=== PATIENT | male | born 1950 | race Caucasian/White ===

== ENCOUNTER 2017-04-05 21:10 | Emergency (ER) | payer SELFPAY ==
[2017-04-05] MEDS ORDERED: ACETAMINOPHEN 500 MG TAB PO ONE ×2 (21:12)
[2017-04-05 21:21] VITALS: BP 150/86
== END 2017-04-05 21:23 | disposition left against medical advice (07) ==
LOC: EDBD 21:10 → EDUNIT# 21:10 → ER 21:18
DX: R07.9 Chest pain, unspecified (principal); R50.9 Fever, unspecified; Z53.21 Procedure and treatment not carried out due to patient leaving prior to being seen by health care provider

== ENCOUNTER 2020-04-08 18:50 | Inpatient (IN) | payer MEDICAID ==
[~2020-04-08] VITALS: Ht 195.6 cm; Wt 51.9 kg
[2020-04-08] MEDS ORDERED: SODIUM CHLORIDE 0.9% 1,750 ML IV ONE ×2 (20:00→20:15)
[2020-04-08] MEDS ORDERED: VANCOMYCIN PER PHARMACY 1,000 MG IV SCH (20:00)
[2020-04-08] MEDS ORDERED: VANCOMYCIN 1GM/250ML 250 ML IV ONE (20:30)
[2020-04-08 21:14] LABS: Basophils # (auto) 0.2 10 ^3/uL (0-0.2); Basophils % (auto) 1.3 % (0.0-2.0); Eosinophils # (auto) 0.1 10 ^3/uL (0-0.8); Hematocrit 34.8 % (41.0-53.0); Hemoglobin 11.4 g/dL (13.5-17.5); Lymphocytes # (auto) 1.1 10 ^3/uL (0.4-5.4); Lymphocytes % (auto) 9.4 % (10.0-50.0); Mean Corpuscular Hemoglobin 31.8 pg (28.0-32.0); Mean Corpuscular Hgb Conc. 32.9 g/dL (32.0-36.0); Mean Corpuscular Volume 96.5 fL (80.0-100.0); Monocytes # (auto) 1.1 10 ^3/uL (0-1.3); Monocytes % (auto) 9.2 % (0.0-12.0); Neutrophils # (auto) 9.1 10 ^3/uL (1.6-8.6); Neutrophils % (auto) 79.1 % (37.0-80.0); Platelet Count (auto) 362 10^3/uL (140-450); Red Cell Distribution Width 14.3 % (11.8-14.3); White Blood Cell 11.5 10^3/uL (4.4-10.8)
[2020-04-08 21:29] LABS: INR 1.07 (0.9-1.15); Partial Thromboplastin Time 31.3 sec (23.64-32.05)
[2020-04-08 21:31] LABS: Albumin 2.6 g/dL (3.4-5.0); Anion Gap 7 (5-15); Blood Urea Nitrogen 41 mg/dL (7-18); Calcium 8.5 mg/dL (8.5-10.1); Carbon Dioxide 24 mmol/L (21-32); Chloride 107 mmol/L (98-107); Glucose 103 mg/dL (74-106); Potassium 4.7 mmol/L (3.5-5.1); Sodium 138 mmol/L (136-145)
[2020-04-08 21:33] LABS: Alanine Aminotransferase 22 U/L (16-61); Aspartate Aminotransferase 8 U/L (15-37); BUN/Creatinine Ratio 24.1; GFR African American 53 mL/min; GFR Non-African American 44 mL/min
[2020-04-08 21:49] LABS: Alkaline Phosphatase 72 U/L (45-117); Bilirubin, Total 0.6 mg/dL (0.2-1.0); Total Protein 7.1 g/dL (6.4-8.2)
[2020-04-08] MEDS ORDERED: MORPHINE SULF INJ 2 MG/ML SYRINGE 1ML IV ONE (22:00)
[2020-04-08] MEDS ORDERED: ONDANSETRON HCL 4 MG/2 ML VIAL IV ONE (22:00)
[2020-04-09] MEDS: PIPERACILLIN-TAZOB 3.375GM 100 ML IV SCH ×2 (00:05→06:00)
[2020-04-09 02:33] LABS: Urine Bacteria FEW /hpf (None Seen); Urine Blood Negative /uL (Negative); Urine Hyaline Cast MANY /lpf (0 - 2); Urine Specific Gravity 1.014 (1.001-1.035); Urine WBC 2 /hpf (0 - 3)
[2020-04-09] MEDS ORDERED: ALBUMIN 5% 250 ML IV ONE (02:45)
[2020-04-09] MEDS ORDERED: ONDANSETRON HCL 4 MG/2 ML VIAL IV PRN (02:45)
[2020-04-09] MEDS ORDERED: NITROGLYCERIN 0.4 MG SL TAB SL PRN (02:45)
[2020-04-09] MEDS ORDERED: ACETAMINOPHEN 325 MG TAB PO PRN (02:45)
[2020-04-09 02:47] LABS: Alcohol, Urine < 3.0 mg/dL (0-10); Amphetamine Screen, Urine NEGATIVE (NEGATIVE); Barbiturate Scree,Urine NEGATIVE (NEGATIVE); Benzodiazephine Screen, Urine NEGATIVE (NEGATIVE); Cannabinoid Screen, Urine NEGATIVE (NEGATIVE); Cocaine Screen, Urine NEGATIVE (NEGATIVE); Opiate Scree,Urine NEGATIVE (NEGATIVE); Phencyclidine Screen, Urine NEGATIVE (NEGATIVE)
[2020-04-09] MEDS: SODIUM CHLORIDE 0.9% 1,000 ML IV SCH ×2 (04:07→16:05)
[2020-04-09] MEDS ORDERED: CLINDAMYCIN 600MG IV 50 ML IV SCH (06:00)
[2020-04-09 06:11] LABS: Basophils # (auto) 0 10 ^3/uL (0-0.2); Basophils % (auto) 0.4 % (0.0-2.0); Eosinophils # (auto) 0.1 10 ^3/uL (0-0.8); Eosinophils % (auto) 1.2 % (0.0-7.0); Hematocrit 28.4 % (41.0-53.0); Hemoglobin 9.5 g/dL (13.5-17.5); Lymphocytes # (auto) 1.5 10 ^3/uL (0.4-5.4); Mean Corpuscular Hemoglobin 32.4 pg (28.0-32.0); Mean Corpuscular Hgb Conc. 33.3 g/dL (32.0-36.0); Mean Corpuscular Volume 97.2 fL (80.0-100.0); Monocytes # (auto) 0.8 10 ^3/uL (0-1.3); Monocytes % (auto) 8.2 % (0.0-12.0); Neutrophils # (auto) 6.8 10 ^3/uL (1.6-8.6); Neutrophils % (auto) 74.2 % (37.0-80.0); Platelet Count (auto) 316 10^3/uL (140-450); Red Blood Cells 2.93 10^6/uL (4.5-5.90); Red Cell Distribution Width 14.1 % (11.8-14.3); White Blood Cell 9.2 10^3/uL (4.4-10.8)
[2020-04-09 06:29] LABS: Potassium 4.4 mmol/L (3.5-5.1)
[2020-04-09 06:34] LABS: BUN/Creatinine Ratio 31.9
[2020-04-09] MEDS ORDERED: ALBUMIN 5% 50 ML IV ONE (07:15)
[2020-04-09] MEDS: cefTRIAXone 1GM/50ML D5W 50 ML IV SCH (08:14)
[2020-04-09] MEDS ORDERED: LISINOPRIL 10 MG TAB PO SCH (10:00)
[2020-04-09] MEDS: ASPirin 81 mg TAB PO SCH (10:07)
[2020-04-09] MEDS: PANTOPRAZOLE 40 MG TAB PO SCH (10:07)
--- NOTE | 2020-04-09 10:30 | NUR ---
WOUND CARE NOTE: IN TO SEE PATIENT AT THIS TIME PER WOUND CARE CONSULT REQUEST. PATIENT ADMITTED TO [facility] WITH DIAGNOSIS OF MULTIPLE NON HEALING WOUNDS. PATIENT HAS CURRENT LUARYN SCORE OF 15. PATIENT IS RESTING ON GURNEY. CAN SELF TURN/REPOSITION SELF. WOUND PHOTOS TAKEN IN ER BY BEDSIDE NURSE FOR REFERENCE. PATIENT IS ADMITTED IN ER BED 5. AWAITING AVAILABLE BED IN M/S TELE. PATIENT HAS MULTIPLE LOCALIZED SKIN INFECTIONS NOTED TO LEFT MEDIAL KNEE, LEFT ANKLE, RIGHT FOREARM, HAND, ABDOMEN/GROIN/UPPER BILATERAL THIGHS. PATIENT STATES THAT HE STARTED NOTICING WOUNDS OCCUR AND WORSEN OVER THE LAST TWO WEEKS. GROIN/BILATERAL UPPER MEDIAL THIGHS ARE VERY TENDER TO THE TOUCH, AND PATIENT IS REFUSING ANY WOUND CARE TO THIS AREA, D/T PAIN. WOUNDS ARE LOCALIZED, CRUSTED IN THIS AREA. HE HAS SCABBED/CRUSTED ULCERATIONS/BLISTERS TO THE OTHER AREAS LISTED ABOVE. ALL WOUND STATS CAN BE FOUND WITHIN WOUND ASSESSMENT, LINKED TO THIS NOTE.OBTAINED WOUND CULTURE TO LEFT KNEE WOUND, SENT OFF TO LAB FOR PROCESSING. CULTURE WAS TAKEN UTILIZING KIRAN TECHNIQUE. CLEANSED ALL WOUNDS WITH WOUND CLEANSER, PATTED DRY WITH STERILE GAUZE. APPLIED THERAHONEY TO ALL WOUNDS. COVERED WITH OPTIFOAM GENTLE DRESSING TO ALL OPEN AND/OR DRAINING WOUNDS. EDUCATED PATIENT IN WOUND CARE AT THIS TIME, PATIENT VERBALIZED UNDERSTANDING, CONTINUES TO REFUSE WOUND CARE TO GROIN AREAS. RECOMMEND: EOD/PRN DRESSING CHANGE TO OPEN/DRAINING WOUNDS, SKIN/WOUND CARE PLAN, FREQUENT TURN SCHEDULE Q 2 HOURS, PRN CONDITION PERMITS, WITH PRESSURE REDISTRIBUTION USING PILLOWS/WEDGES, DIETARY CONSULT, CONTINUED MONITORING BY WOUND CARE TEAM. Addendum: 04/09/20 at 1632 by Calista Levy RN Amended: Links added.
[2020-04-09] MEDS: MORPHINE SULF INJ 2 MG/ML SYRINGE 1ML IV PRN ×2 (11:30→21:25)
[2020-04-09] MEDS ORDERED: VANCOMYCIN PER PHARMACY 0 MG IV SCH (11:45)
[2020-04-09] MEDS: VANCOMYCIN 1GM/250ML 250 ML IV SCH (12:50)
[2020-04-09] MEDS: levETIRAcetam 500 MG TAB PO SCH ×2 (14:21→21:26)
[2020-04-09] MEDS: GABAPENTIN 300 MG CAP PO SCH ×2 (14:21→21:26)
[2020-04-09 17:58] VITALS: BP 114/71
--- NOTE | 2020-04-09 19:15 | NUR ---
Patient alert and oriented x 4, patient resps even and unlabored, no complaints care endorsed to night nurse.
[2020-04-09] MEDS: TEMAZEPAM 15 MG CAP PO PRN (21:25)
[2020-04-09 22:18] VITALS: BP 98/59
[2020-04-10] MEDS: VANCOMYCIN 1GM/250ML 250 ML IV SCH ×2 (00:38→13:46)
[2020-04-10 05:08] VITALS: BP 97/56
[2020-04-10] MEDS: GABAPENTIN 300 MG CAP PO SCH ×3 (05:47→21:36)
[2020-04-10] MEDS: levETIRAcetam 500 MG TAB PO SCH ×3 (05:47→21:36)
[2020-04-10] MEDS: SODIUM CHLORIDE 0.9% 1,000 ML IV SCH (05:48)
[2020-04-10 06:47] LABS: BUN/Creatinine Ratio 21.3; Calcium 8.3 mg/dL (8.5-10.1); Potassium 4.7 mmol/L (3.5-5.1)
[2020-04-10 06:52] LABS: Basophils # (auto) 0.1 10 ^3/uL (0-0.2); Basophils % (auto) 0.8 % (0.0-2.0); Eosinophils # (auto) 0.1 10 ^3/uL (0-0.8); Hematocrit 29.3 % (41.0-53.0); Lymphocytes # (auto) 1.4 10 ^3/uL (0.4-5.4); Lymphocytes % (auto) 20.3 % (10.0-50.0); Mean Corpuscular Hemoglobin 32.9 pg (28.0-32.0); Mean Corpuscular Volume 96.9 fL (80.0-100.0); Monocytes # (auto) 0.5 10 ^3/uL (0-1.3); Monocytes % (auto) 6.7 % (0.0-12.0); Neutrophils # (auto) 4.9 10 ^3/uL (1.6-8.6); Neutrophils % (auto) 71.2 % (37.0-80.0); Platelet Count (auto) 344 10^3/uL (140-450); Red Blood Cells 3.03 10^6/uL (4.5-5.90); White Blood Cell 6.9 10^3/uL (4.4-10.8)
[2020-04-10 08:55] VITALS: BP 98/50
[2020-04-10] MEDS: cefTRIAXone 1GM/50ML D5W 50 ML IV SCH (09:09)
[2020-04-10] MEDS: ASPirin 81 mg TAB PO SCH (09:09)
[2020-04-10] MEDS: PANTOPRAZOLE 40 MG TAB PO SCH (09:10)
[2020-04-10] MEDS: ENOXAPARIN SOD 40 MG/0.4 ML SYRINGE SC SCH (09:10)
[2020-04-10] MEDS: Ensure Enlive Strawberry 8oz Bottle PO SCH ×2 (11:38→17:53)
[2020-04-10] MEDS: HYDROcodone-ACET 5/325MG TAB PO PRN ×2 (11:40→21:39)
[2020-04-10 12:35] VITALS: BP 105/61
[2020-04-10 16:52] VITALS: BP 93/53
[2020-04-10] MEDS: MORPHINE SULF INJ 2 MG/ML SYRINGE 1ML IV PRN (20:02)
--- NOTE | 2020-04-10 20:39 | NUR ---
1999. PATIENT SEEN. COMPLAINING OF PAIN LEFT KNEE, GROINS AND IV SITES. ALL TWO IV DISCONTINUED AND A FRESH ONE INSERTED TO LEFT FORE ARM GAUGE 20. MORPHINE 2MG GIVEN IV. IVF STARTED AT 75ML/HOUR. WOUNDS BOTH GROINS CLEANED AND LEFT OPEN TO AIR WOUND RGHT HAND CLEANED AND LEFT OPEN TO AIR. ALL BED LINENS CHANGED. PATIENT MORE COMFORTABLE AT THE END.
[2020-04-10] MEDS: BISACODYL 5 MG EC TAB PO SCH (21:36)
[2020-04-10] MEDS: TEMAZEPAM 15 MG CAP PO PRN (21:39)
[2020-04-10 22:21] VITALS: BP 96/50
[2020-04-11] MEDS: VANCOMYCIN 1GM/250ML 250 ML IV SCH ×2 (01:04→13:16)
--- NOTE | 2020-04-11 05:15 | NUR ---
PATIENT SLEPT WELL DURING THE NIGHT. HE HAS NO COMPLAINTS NOW.
[2020-04-11 05:31] VITALS: BP 108/63
[2020-04-11] MEDS: GABAPENTIN 300 MG CAP PO SCH ×3 (05:49→22:00)
[2020-04-11] MEDS: levETIRAcetam 500 MG TAB PO SCH ×3 (05:50→22:00)
[2020-04-11 08:00] VITALS: BP 113/59
--- NOTE | 2020-04-11 08:00 | NUR ---
ASSESSMENT NOTE PT IS ALERT ORIENTED X4, RESTING IN BED COMFORTABLY, LARGE SOFT ABDOMEN NOTED,PT HAS DRY LARGE MULTIPLE SCABS AT THE GENITALIA AREA, THIRD FINGER RT HAND IN THE SKIN FOLDS, RT FORE ARM, LEFT KNEE IS COVERED WITH DRY CLEAN DRESSING, PT SCABS ARE VERY TENDER TO TOUCH, BODY ACHES NOTED, EXPLAIN PT THE PLAN OF CARE THAT HE NEED TO GET OUT OF BED WITH THE PHYSICAL THERAPY, CALL LIGHT WITHIN REACH, CONTINUE ON FALL RISK PRECAUTIONS
[2020-04-11 09:00] VITALS: BP 120/67
[2020-04-11] MEDS: cefTRIAXone 1GM/50ML D5W 50 ML IV SCH (09:10)
[2020-04-11] MEDS: Ensure Enlive Strawberry 8oz Bottle PO SCH ×3 (09:10→18:00)
[2020-04-11] MEDS: ASPirin 81 mg TAB PO SCH (09:11)
[2020-04-11] MEDS: ENOXAPARIN SOD 40 MG/0.4 ML SYRINGE SC SCH (09:12)
[2020-04-11] MEDS: PANTOPRAZOLE 40 MG TAB PO SCH (09:12)
[2020-04-11] MEDS: MORPHINE SULF INJ 2 MG/ML SYRINGE 1ML IV PRN ×2 (09:24→20:09)
--- NOTE | 2020-04-11 10:00 | NUR ---
DRESSING CHANGE ALREADY DONE WITH TIANA ARRIAZA ORDER PACKER OR PACKAGER Addendum: 04/11/20 at 1005 by Odalis Putnam RN Amended: Links added.
--- NOTE | 2020-04-11 11:15 | NUR ---
DR LIND AT BED SIDE FOLLOWING UP ON PT, PT LUNGS ARE CLEAR, ROOM AIR, CONTINUE MONITORING
[2020-04-11 13:00] VITALS: BP 96/67
[2020-04-11 17:00] VITALS: BP 108/64
--- NOTE | 2020-04-11 17:30 | NUR ---
PHYSICAL THERAPY ASSISTING PT TO GET OUT OF BED TO AMBULATE IN THE HALLWAYS, PT TOLERATED WELL, NO DISTRESS NOTED
--- NOTE | 2020-04-11 18:50 | NUR ---
PT CONTINUE STABLE, CONTINUE MONITORING
--- NOTE | 2020-04-11 19:25 | NUR ---
Opening Shift Note Assumed care of patient, awake and alert x4. No S/S of distress/SOB, or pain. Seizure precautions are in place. His cane from home is at the bedside and within reach. Call light is within reach, side rails up x2, bed is in the lowest position. Instructed on POC and to call for assist PRN, will continue to monitor for changes Q1hr and PRN.
[2020-04-11] MEDS: TEMAZEPAM 15 MG CAP PO PRN (22:00)
[2020-04-11] MEDS: BISACODYL 5 MG EC TAB PO SCH (22:00)
--- NOTE | 2020-04-11 23:10 | NUR ---
IV insertion to RFA IV access obtained, via clean sterile technique by inserting 22 gauge catheter at RFA after 1 attempt(s). IV secured properly. No trauma to site. Patient tolerated well. IV removal from left wrist IV DC'd with clean sterile technique, catheter fully intact. Pressure dressing applied to site. Patient tolerated well.
[2020-04-11 23:23] VITALS: BP 96/60
[2020-04-12] VITALS (7 sets, daily range): BP systolic 100–114; BP diastolic 59–69
--- NOTE | 2020-04-12 00:05 | NUR ---
Dressing change to left knee, patient tolerated well with no complaints of pain.
[2020-04-12] MEDS: VANCOMYCIN 1GM/250ML 250 ML IV SCH (01:13)
[2020-04-12] MEDS: levETIRAcetam 500 MG TAB PO SCH ×3 (05:42→22:46)
[2020-04-12] MEDS: GABAPENTIN 300 MG CAP PO SCH ×3 (05:42→22:46)
[2020-04-12] MEDS: Ensure Enlive Strawberry 8oz Bottle PO SCH ×3 (08:00→19:00)
--- NOTE | 2020-04-12 09:00 | NUR ---
LOOSE BM PT STATED I WENT THE BATHROOM 6 TIMES, I AM HAVING DIARRHEA, I NEED MEDICATIONS, SUPPORT PT, KEPT CLEAN AND DRY
--- NOTE | 2020-04-12 09:20 | NUR ---
DR LIND MADE AWARE OF PT LOOSE BM, PT HAVE NO BM SINCE 04/08/20, ON STOOL SOFTENER EVERY NIGHT, PT MADE AWARE ASSURE PT THAT THE MEDS SOON WILL GET OUT OF HIS SYSTEM AND WILL BE FINE
[2020-04-12] MEDS: ENOXAPARIN SOD 40 MG/0.4 ML SYRINGE SC SCH (09:35)
[2020-04-12] MEDS: PANTOPRAZOLE 40 MG TAB PO SCH (09:35)
[2020-04-12] MEDS: ASPirin 81 mg TAB PO SCH (09:35)
[2020-04-12] MEDS: cefTRIAXone 1GM/50ML D5W 50 ML IV SCH (09:35)
--- NOTE | 2020-04-12 10:27 | NUR ---
Attempted PT treatment. Pt wants to hold until afternoon due to diarrhea. Will attempt again later.
[2020-04-12] MEDS ORDERED: DOXYCYCLINE 100MG/250ML 250 ML IV SCH (10:45)
[2020-04-12] MEDS: DOXYCYCLINE 100 MG TAB/CAP PO SCH ×2 (11:01→22:46)
--- NOTE | 2020-04-12 13:50 | NUR ---
BM PT HAS BM, START TO GET FORMED, TOLERATED DIET WELL
--- NOTE | 2020-04-12 15:37 | NUR ---
Nutrition Assessment Notes please see attached link for complete assessment Est energy needs BW 99 [id number] kcal (25-30kcal/kg IBW) Est protein needs: 99-128g (1.0-1.3g/kg BW r/t wounds) Will reassess prn. Addendum: 04/12/20 at [address] Amended: Links added.
[2020-04-12] MEDS: HYDROcodone-ACET 5/325MG TAB PO PRN (17:08)
--- NOTE | 2020-04-12 18:14 | NUR ---
PT CONTINUE STABLE, CONTINUE MONITORING
--- NOTE | 2020-04-12 19:38 | NUR ---
OPENING SHIFT NOTE: ASSUMED CARE OF PATIENT. PATIENT IS AWAKE, ALERT AND ORIENTED X 4, NO S/S OF SOB OR DISTRESS. PATIENT COMPLAINS OF PAIN 8/10, WILL MEDICATE FOR PAIN. BED IS IN LOWEST LOCKED POSITION WITH TWO SIDE RAILS RAISED AND CALL DUMONT WITHIN REACH. INSTRUCTED ON POC AND ENCOURAGED TO USE CALL DUMONT FOR ASSISTANCE, ALL QUESTIONS AND CONCERNS ADDRESSED, PATIENT VERBALIZES UNDERSTANDING. WILL CONTINUE TO MONITOR Q1 HR AND PRN.
[2020-04-12] MEDS: MORPHINE SULF INJ 2 MG/ML SYRINGE 1ML IV PRN (20:23)
[2020-04-12] MEDS: TEMAZEPAM 15 MG CAP PO PRN (22:47)
[2020-04-13 05:00] VITALS: BP 120/67
[2020-04-13] MEDS: levETIRAcetam 500 MG TAB PO SCH (05:30)
[2020-04-13] MEDS: GABAPENTIN 300 MG CAP PO SCH (05:30)
[2020-04-13] MEDS: MORPHINE SULF INJ 2 MG/ML SYRINGE 1ML IV PRN ×2 (05:35→09:55)
--- NOTE | 2020-04-13 07:30 | NUR ---
RECEIVED REPORT FROM NIGHT NURSE. PATIENT RESTING IN BED, NO DISTRESS NOTED. WILL CONTINUE TO MONITOR.
[2020-04-13] MEDS: Ensure Enlive Strawberry 8oz Bottle PO SCH (08:00)
[2020-04-13] MEDS: PANTOPRAZOLE 40 MG TAB PO SCH (09:55)
[2020-04-13] MEDS: DOXYCYCLINE 100 MG TAB/CAP PO SCH (09:55)
[2020-04-13] MEDS: ASPirin 81 mg TAB PO SCH (09:55)
[2020-04-13] MEDS: ENOXAPARIN SOD 40 MG/0.4 ML SYRINGE SC SCH (09:58)
[2020-04-13] MEDS ORDERED: DOX100T PO (10:18)
--- NOTE | 2020-04-13 12:17 | NUR ---
WOUND PHOTOS TAKEN.
--- NOTE | 2020-04-13 12:37 | NUR ---
WOUND CARE SUPPLIES GIVEN TO PATIENT.
[2020-04-13 13:23] VITALS: BP 124/73
[2020-04-13 13:24] VITALS: BP 114/46
--- NOTE | 2020-04-13 14:50 | NUR ---
Discharge instructions given as ordered. Encourage to follow up with PMD as instructed. All questions and concerns addressed. Patient verbalized understanding. Medication reconciliation form completed and copy given to patient. IV removed with catheter intact, pressure dressing applied. Patient taken to [facility] via wheelchair with all personal belongings, accompanied by staff member. No distress noted at time of departure.
== END 2020-04-13 14:51 | disposition home or self-care (01) | DRG 384 ==
LOC: ER 19:01 → EDBD 19:01 → TELE 19:02 → TELE-CENTR 04-09 17:41 → CENTRAL 04-10 10:45
PROVIDERS: ADMIT Nurse Practitioner; ATTEND Internal Medicine
DX: S31.153A Open bite of abdominal wall, right lower quadrant without penetration into peritoneal cavity, initial encounter (principal); N17.0 Acute kidney failure with tubular necrosis; E43 Unspecified severe protein-calorie malnutrition; I95.9 Hypotension, unspecified; E86.0 Dehydration; D64.9 Anemia, unspecified; B95.61 Methicillin susceptible Staphylococcus aureus infection as the cause of diseases classified elsewhere; D72.829 Elevated white blood cell count, unspecified; K57.30 Diverticulosis of large intestine without perforation or abscess without bleeding; G40.909 Epilepsy, unspecified, not intractable, without status epilepticus; B95.2 Enterococcus as the cause of diseases classified elsewhere; I10 Essential (primary) hypertension; I25.2 Old myocardial infarction; K59.00 Constipation, unspecified; W57.XXXA Bitten or stung by nonvenomous insect and other nonvenomous arthropods, initial encounter; Y93.89 Activity, other specified; Y92.89 Other specified places as the place of occurrence of the external cause; Y99.8 Other external cause status
CPT/HCPCS: 36415; 36600; 71045; 74176; 80048; 80053; 80202; 80307; 81001; 82550; 82805; 83605; 83880; 84484; 85025; 85379; 85384; 85610; 85730; 86850; 86900; 86901; 87040; 87077; 87086; 87186; 87205; 93005; 93970; 97163; 97530; 99291; G0378; J0696; J2405; J2543; J3490

== ENCOUNTER 2021-12-25 17:40 | Inpatient (IN) | payer MEDICAID ==
[~2021-12-25] VITALS: Ht 182.9 cm; Wt 94.2 kg
[~2021-12-25 17:40] MED LIST: DOX100T PO
[2021-12-25] MEDS ORDERED: SODIUM CHLORIDE 0.9% 500 ML IV ONE ×2 (18:15→21:45)
[2021-12-25] MEDS ORDERED: DexAMETHasone SOD PHOS 10MG/1ML VIAL INJ IV ONE (18:15)
[2021-12-25] MEDS ORDERED: ALBUTEROL SULF 2.5 MG/0.5ML(0.5%) NEB SOLN NEB ONE (18:15)
[2021-12-25] MEDS ORDERED: HYDROmorphone HCL 2 MG/ML VL IV ONE (18:15)
[2021-12-25] MEDS ORDERED: IPRATROPIUM BROM 0.5 MG/2.5ML INH SOL NEB ONE (18:15)
[2021-12-25] MEDS ORDERED: ASPirin 325 MG TAB PO ONE (18:45)
[2021-12-25] MEDS ORDERED: MORPHINE SULFATE INJECTION 2 MG/ML SYRG IV ONE (19:00)
[2021-12-25 19:27] LABS: Basophils # (auto) 0.1 10 ^3/uL (0-0.2); Basophils % (auto) 1.4 % (0.0-2.0); Eosinophils # (auto) 0 10 ^3/uL (0-0.8); Eosinophils % (auto) 0.3 % (0.0-7.0); Hematocrit 38.4 % (41.0-53.0); Hemoglobin 13.3 g/dL (13.5-17.5); Lymphocytes # (auto) 1.8 10 ^3/uL (0.4-5.4); Lymphocytes % (auto) 34.6 % (10.0-50.0); Mean Corpuscular Hemoglobin 32.8 pg (28.0-32.0); Mean Corpuscular Hgb Conc. 34.7 g/dL (32.0-36.0); Mean Corpuscular Volume 94.5 fL (80.0-100.0); Monocytes # (auto) 0.5 10 ^3/uL (0-1.3); Monocytes % (auto) 10.5 % (0.0-12.0); Neutrophils # (auto) 2.8 10 ^3/uL (1.6-8.6); Neutrophils % (auto) 53.2 % (37.0-80.0); Nucleated Red Blood Cells % 0.2 %; Red Blood Cells 4.07 10^6/uL (4.5-5.90); Red Cell Distribution Width 13.4 % (11.8-14.3); White Blood Cell 5.3 10^3/uL (4.4-10.8)
[2021-12-25 20:54] LABS: Albumin 3.2 g/dL (3.4-5.0); Calcium 8.5 mg/dL (8.5-10.1); Magnesium 2.2 mg/dL (1.6-2.6); Potassium 4.1 mmol/L (3.5-5.1)
[2021-12-25 21:00] LABS: Bilirubin, Total 0.5 mg/dL (0.2-1.0); Total Protein 6.8 g/dL (6.4-8.2)
[2021-12-25] MEDS ORDERED: SODIUM CHLORIDE 0.9% 1,000 ML IV ONE (22:45)
[2021-12-26] VITALS (7 sets, daily range): BP systolic 89–123; BP diastolic 39–75
[2021-12-26] MEDS ORDERED: IPRATROPIUM BROM 0.5 MG/2.5ML INH SOL NEB PRN (01:00)
[2021-12-26] MEDS ORDERED: ONDANSETRON HCL 4 MG/2 ML VIAL IV PRN (01:00)
[2021-12-26] MEDS ORDERED: DOCUSATE SOD 100 MG CAP PO PRN (01:00)
[2021-12-26] MEDS ORDERED: ALBUTEROL SULF 2.5 MG/0.5ML(0.5%) NEB SOLN NEB PRN (01:00)
[2021-12-26] MEDS ORDERED: ACETAMINOPHEN 325 MG TAB PO PRN (01:00)
[2021-12-26] MEDS ORDERED: AZITHROMYCIN 250 MG TAB PO ONE (01:00)
[2021-12-26] MEDS ORDERED: NITROGLYCERIN 0.4 MG SL TAB SL PRN (01:00)
[2021-12-26] MEDS ORDERED: MORPHINE SULFATE INJECTION 2 MG/ML SYRG IV PRN (01:00)
[2021-12-26] MEDS ORDERED: HEPARIN SODIUM (PORCINE) 5000 UNITS/ML 1ML VIAL IV ONE (01:15)
[2021-12-26] MEDS: MAGNESIUM SULFATE 1GM/100ML 100 ML IV SCH ×2 (01:42→01:44)
[2021-12-26 02:03] LABS: Urine Bacteria FEW /hpf (None Seen); Urine Blood Negative /uL (Negative); Urine Hyaline Cast FEW /lpf (0 - 2); Urine Specific Gravity 1.015 (1.001-1.035); Urine WBC 2 /hpf (0 - 3)
[2021-12-26] MEDS: SODIUM CHLORIDE 0.9% 1,000 ML IV SCH ×2 (02:13→10:24)
[2021-12-26] MEDS ORDERED: PRAV20TA3 PO (03:02)
[2021-12-26] MEDS ORDERED: GABA300C10 PO (03:02)
[2021-12-26] MEDS ORDERED: ALBU1AER4 IN (03:02)
[2021-12-26] MEDS ORDERED: LISI-716 PO (03:02)
[2021-12-26] MEDS ORDERED: LEVE500T32 PO (03:02)
[2021-12-26] MEDS: HEPARIN SODIUM (PORCINE) 5000 UNITS/ML 1ML VIAL SC SCH ×3 (06:00→22:00)
[2021-12-26] MEDS: levETIRAcetam 500 MG TAB PO SCH ×3 (06:00→22:00)
[2021-12-26] MEDS: methylPREDNISolone SOD SUCC 125 MG/2 ML VL IV SCH ×3 (06:00→18:01)
[2021-12-26] MEDS: GABAPENTIN 300 MG CAP PO SCH ×3 (06:00→22:00)
[2021-12-26] MEDS: IPRATROPIUM BROM 0.5 MG/2.5ML INH SOL NEB SCH ×4 (06:31→23:53)
[2021-12-26] MEDS: ALBUTEROL SULF 2.5 MG/0.5ML(0.5%) NEB SOLN NEB SCH ×4 (06:31→23:53)
[2021-12-26] MEDS ORDERED: NICOTINE 21MG/24 HR TOPICAL PATCH TD SCH (10:00)
[2021-12-26] MEDS: PRAVASTATIN SODIUM 20 MG TAB PO SCH (10:21)
[2021-12-26] MEDS: PANTOPRAZOLE 40 MG TAB PO SCH (10:21)
[2021-12-26] MEDS: AZITHROMYCIN 250 MG TAB PO SCH (10:22)
[2021-12-26 12:49] LABS: Basophils # (auto) 0 10 ^3/uL (0-0.2); Basophils % (auto) 0.2 % (0.0-2.0); Eosinophils # (auto) 0 10 ^3/uL (0-0.8); Hematocrit 35.7 % (41.0-53.0); Hemoglobin 12.3 g/dL (13.5-17.5); Lymphocytes # (auto) 0.6 10 ^3/uL (0.4-5.4); Lymphocytes % (auto) 20.8 % (10.0-50.0); Mean Corpuscular Hemoglobin 32.8 pg (28.0-32.0); Mean Corpuscular Hgb Conc. 34.5 g/dL (32.0-36.0); Mean Corpuscular Volume 94.9 fL (80.0-100.0); Monocytes # (auto) 0.1 10 ^3/uL (0-1.3); Monocytes % (auto) 4.3 % (0.0-12.0); Neutrophils # (auto) 2.1 10 ^3/uL (1.6-8.6); Neutrophils % (auto) 74.7 % (37.0-80.0); Nucleated Red Blood Cells % 0.3 %; Red Blood Cells 3.76 10^6/uL (4.5-5.90); Red Cell Distribution Width 13.5 % (11.8-14.3); White Blood Cell 2.8 10^3/uL (4.4-10.8)
[2021-12-26 13:24] LABS: Albumin 2.9 g/dL (3.4-5.0); Calcium 8.3 mg/dL (8.5-10.1); Potassium 4.2 mmol/L (3.5-5.1)
[2021-12-26 13:31] LABS: BUN/Creatinine Ratio 27.6; Bilirubin, Total 0.3 mg/dL (0.2-1.0); Total Protein 6.3 g/dL (6.4-8.2)
[2021-12-26 14:17] LABS: Protein, Urine 49.6 mg/dL (0.0-11.9)
[2021-12-26] MEDS: SODIUM BICARBONATE 50ML VIAL 50 ML in SOD CHL 0.45% 1,000 ML IV SCH ×2 (15:40→19:39)
[2021-12-26] MEDS ORDERED: NICOTINE 21MG/24 HR TOPICAL PATCH TD ONE (15:45)
[2021-12-26] MEDS: OXYCODONE W/ ACETAMINOPHEN 5/325MG TABLET PO PRN ×2 (15:46→23:13)
[2021-12-26 16:28] LABS: Creatinine, Urine 197 mg/dL (30.0-125.0); Sodium Urine 34 mmol/L (40-220)
[2021-12-26] MEDS: TAMSULOSIN HYDROCHLORIDE 0.4 MG CAP PO SCH (18:01)
[2021-12-27] MEDS: SODIUM BICARBONATE 50ML VIAL 50 ML in SOD CHL 0.45% 1,000 ML IV SCH ×2 (03:35→13:14)
[2021-12-27 04:54] VITALS: BP 102/42
[2021-12-27] MEDS: OXYCODONE W/ ACETAMINOPHEN 5/325MG TABLET PO PRN (05:50)
[2021-12-27] MEDS: HEPARIN SODIUM (PORCINE) 5000 UNITS/ML 1ML VIAL SC SCH ×3 (06:00→21:45)
[2021-12-27] MEDS: methylPREDNISolone SOD SUCC 125 MG/2 ML VL IV SCH ×4 (06:00→17:08)
[2021-12-27] MEDS: levETIRAcetam 500 MG TAB PO SCH ×3 (06:00→21:44)
[2021-12-27] MEDS: GABAPENTIN 300 MG CAP PO SCH ×3 (06:00→21:44)
[2021-12-27] MEDS: IPRATROPIUM BROM 0.5 MG/2.5ML INH SOL NEB SCH ×3 (06:12→18:26)
[2021-12-27] MEDS: ALBUTEROL SULF 2.5 MG/0.5ML(0.5%) NEB SOLN NEB SCH ×3 (06:12→18:26)
[2021-12-27 09:00] VITALS: BP 165/94
[2021-12-27 09:26] LABS: Basophils # (auto) 0 10 ^3/uL (0-0.2); Eosinophils # (auto) 0 10 ^3/uL (0-0.8); Hematocrit 32.2 % (41.0-53.0); Hemoglobin 11.1 g/dL (13.5-17.5); Lymphocytes # (auto) 0.7 10 ^3/uL (0.4-5.4); Lymphocytes % (auto) 10.9 % (10.0-50.0); Mean Corpuscular Hemoglobin 32.6 pg (28.0-32.0); Mean Corpuscular Hgb Conc. 34.6 g/dL (32.0-36.0); Mean Corpuscular Volume 94.2 fL (80.0-100.0); Monocytes # (auto) 0.2 10 ^3/uL (0-1.3); Neutrophils # (auto) 5.1 10 ^3/uL (1.6-8.6); Neutrophils % (auto) 85.1 % (37.0-80.0); Nucleated Red Blood Cells % 0.1 %; Red Blood Cells 3.42 10^6/uL (4.5-5.90); Red Cell Distribution Width 13.5 % (11.8-14.3)
[2021-12-27] MEDS: NICOTINE 21MG/24 HR TOPICAL PATCH TD SCH (10:36)
[2021-12-27] MEDS: PRAVASTATIN SODIUM 20 MG TAB PO SCH (10:37)
[2021-12-27] MEDS: PANTOPRAZOLE 40 MG TAB PO SCH (10:38)
[2021-12-27] MEDS: AZITHROMYCIN 250 MG TAB PO SCH (10:38)
[2021-12-27 11:36] LABS: Basophils # (auto) 0.1 10 ^3/uL (0-0.2); Basophils % (auto) 1.6 % (0.0-2.0); Eosinophils # (auto) 0 10 ^3/uL (0-0.8); Hematocrit 32.5 % (41.0-53.0); Hemoglobin 11.2 g/dL (13.5-17.5); Lymphocytes # (auto) 0.4 10 ^3/uL (0.4-5.4); Lymphocytes % (auto) 5.5 % (10.0-50.0); Mean Corpuscular Hemoglobin 32.6 pg (28.0-32.0); Mean Corpuscular Hgb Conc. 34.5 g/dL (32.0-36.0); Mean Corpuscular Volume 94.5 fL (80.0-100.0); Monocytes # (auto) 0.2 10 ^3/uL (0-1.3); Monocytes % (auto) 3.5 % (0.0-12.0); Neutrophils # (auto) 6.1 10 ^3/uL (1.6-8.6); Neutrophils % (auto) 89.4 % (37.0-80.0); Red Blood Cells 3.44 10^6/uL (4.5-5.90); Red Cell Distribution Width 13.5 % (11.8-14.3); White Blood Cell 6.8 10^3/uL (4.4-10.8)
[2021-12-27 11:59] LABS: Albumin 2.7 g/dL (3.4-5.0); BUN/Creatinine Ratio 24.8; Calcium 8.4 mg/dL (8.5-10.1)
[2021-12-27 12:02] LABS: Bilirubin, Total 0.2 mg/dL (0.2-1.0); Total Protein 5.7 g/dL (6.4-8.2)
[2021-12-27 13:00] VITALS: BP 59/94
[2021-12-27 14:03] LABS: Albumin 2.7 g/dL (3.4-5.0); Potassium 4.5 mmol/L (3.5-5.1)
[2021-12-27 14:06] LABS: BUN/Creatinine Ratio 23.7; Bilirubin, Total 0.3 mg/dL (0.2-1.0); Total Protein 5.7 g/dL (6.4-8.2)
[2021-12-27 17:06] VITALS: BP 125/53
[2021-12-27] MEDS: TAMSULOSIN HYDROCHLORIDE 0.4 MG CAP PO SCH (17:08)
[2021-12-27 21:16] VITALS: BP 111/66
[2021-12-28] MEDS: ALBUTEROL SULF 2.5 MG/0.5ML(0.5%) NEB SOLN NEB SCH ×3 (00:03→11:44)
[2021-12-28] MEDS: IPRATROPIUM BROM 0.5 MG/2.5ML INH SOL NEB SCH ×3 (00:04→11:44)
[2021-12-28] MEDS: methylPREDNISolone SOD SUCC 125 MG/2 ML VL IV SCH ×3 (00:25→13:53)
[2021-12-28] MEDS: OXYCODONE W/ ACETAMINOPHEN 5/325MG TABLET PO PRN (01:03)
[2021-12-28] MEDS: SODIUM BICARBONATE 50ML VIAL 50 ML in SOD CHL 0.45% 1,000 ML IV SCH ×2 (02:12→13:39)
[2021-12-28 05:10] VITALS: BP 108/52
[2021-12-28] MEDS: GABAPENTIN 300 MG CAP PO SCH ×2 (05:32→13:53)
[2021-12-28] MEDS: HEPARIN SODIUM (PORCINE) 5000 UNITS/ML 1ML VIAL SC SCH ×2 (05:32→13:55)
[2021-12-28] MEDS: levETIRAcetam 500 MG TAB PO SCH ×2 (05:32→13:54)
[2021-12-28 05:54] LABS: Basophils # (auto) 0 10 ^3/uL (0-0.2); Basophils % (auto) 0.1 % (0.0-2.0); Eosinophils # (auto) 0 10 ^3/uL (0-0.8); Hematocrit 33.3 % (41.0-53.0); Hemoglobin 11.7 g/dL (13.5-17.5); Lymphocytes # (auto) 0.4 10 ^3/uL (0.4-5.4); Lymphocytes % (auto) 4.4 % (10.0-50.0); Mean Corpuscular Hgb Conc. 35.2 g/dL (32.0-36.0); Mean Corpuscular Volume 93.7 fL (80.0-100.0); Monocytes # (auto) 0.4 10 ^3/uL (0-1.3); Monocytes % (auto) 3.8 % (0.0-12.0); Neutrophils # (auto) 8.6 10 ^3/uL (1.6-8.6); Neutrophils % (auto) 91.7 % (37.0-80.0); Red Blood Cells 3.55 10^6/uL (4.5-5.90); Red Cell Distribution Width 13.4 % (11.8-14.3); White Blood Cell 9.4 10^3/uL (4.4-10.8)
[2021-12-28 06:13] LABS: Albumin 2.7 g/dL (3.4-5.0); BUN/Creatinine Ratio 19.8; Calcium 8.6 mg/dL (8.5-10.1); Potassium 4.4 mmol/L (3.5-5.1)
[2021-12-28 06:16] LABS: Bilirubin, Total 0.2 mg/dL (0.2-1.0); Total Protein 5.7 g/dL (6.4-8.2)
[2021-12-28 09:00] VITALS: BP 109/41
[2021-12-28] MEDS: AZITHROMYCIN 250 MG TAB PO SCH (09:26)
[2021-12-28] MEDS: PRAVASTATIN SODIUM 20 MG TAB PO SCH (09:28)
[2021-12-28] MEDS: PANTOPRAZOLE 40 MG TAB PO SCH (09:28)
[2021-12-28] MEDS: NICOTINE 21MG/24 HR TOPICAL PATCH TD SCH (09:28)
[2021-12-28 13:00] VITALS: BP 110/48
== END 2021-12-28 15:46 | disposition home or self-care (01) | DRG 140 ==
LOC: ER 17:40 → EDBD 17:40 → TELE 12-26 01:00 → TELE-CENTR 12-26 02:19
PROVIDERS: ADMIT Internal Medicine; ATTEND Internal Medicine
DX: J44.1 Chronic obstructive pulmonary disease with (acute) exacerbation (principal); N17.0 Acute kidney failure with tubular necrosis; I95.9 Hypotension, unspecified; E11.22 Type 2 diabetes mellitus with diabetic chronic kidney disease; E86.9 Volume depletion, unspecified; I25.10 Atherosclerotic heart disease of native coronary artery without angina pectoris; E78.5 Hyperlipidemia, unspecified; E88.09 Other disorders of plasma-protein metabolism, not elsewhere classified; F17.210 Nicotine dependence, cigarettes, uncomplicated; G40.909 Epilepsy, unspecified, not intractable, without status epilepticus; I12.9 Hypertensive chronic kidney disease with stage 1 through stage 4 chronic kidney disease, or unspecified chronic kidney disease; I35.9 Nonrheumatic aortic valve disorder, unspecified; M54.9 Dorsalgia, unspecified; N18.9 Chronic kidney disease, unspecified; Z20.822 Contact with and (suspected) exposure to COVID-19; N32.0 Bladder-neck obstruction; N40.1 Benign prostatic hyperplasia with lower urinary tract symptoms; R33.8 Other retention of urine; I25.2 Old myocardial infarction; Z82.49 Family history of ischemic heart disease and other diseases of the circulatory system; Z91.018 Allergy to other foods
CPT/HCPCS: 36415; 71045; 76775; 78582; 80053; 80061; 81001; 82024; 82533; 82570; 83036; 83605; 83735; 83880; 84156; 84300; 84443; 84484; 85025; 85379; 86141; 87040; 87426; 93005; 93306; 94640; 96361; 96374; G0378; J1100

== ENCOUNTER 2023-05-03 18:49 | Emergency (ER) | payer MEDICAID, OTHER ==
[~2023-05-03] VITALS: Ht 195.6 cm; Wt 75.0 kg
[~2023-05-03 18:49] MED LIST changes: +ALBU1AER4 IN; +GABA-1250 PO; +LEVE500T40 PO; +LISI10TA34 PO; +PRAV20TA3 PO
[2023-05-03] MEDS ORDERED: HYDROcodone-ACET 5/325MG TAB PO ONE (20:15)
[2023-05-03] MEDS ORDERED: CLINDAMYCIN 300MG IV 50 ML IV ONE (20:15)
[2023-05-03 20:55] LABS: Basophils # (auto) 0 10 ^3/uL (0-0.2); Basophils % (auto) 0.5 % (0.0-2.0); Eosinophils # (auto) 0.1 10 ^3/uL (0-0.8); Eosinophils % (auto) 0.9 % (0.0-7.0); Hematocrit 37.5 % (41.0-53.0); Hemoglobin 12.9 g/dL (13.5-17.5); Lymphocytes # (auto) 1.7 10 ^3/uL (0.4-5.4); Mean Corpuscular Hemoglobin 32.6 pg (28.0-32.0); Mean Corpuscular Hgb Conc. 34.3 g/dL (32.0-36.0); Mean Corpuscular Volume 94.9 fL (80.0-100.0); Monocytes # (auto) 0.5 10 ^3/uL (0-1.3); Monocytes % (auto) 7.3 % (0.0-12.0); Neutrophils # (auto) 4.9 10 ^3/uL (1.6-8.6); Neutrophils % (auto) 68.3 % (37.0-80.0); Nucleated Red Blood Cells % 0.1 %; Red Blood Cells 3.95 10^6/uL (4.5-5.90); Red Cell Distribution Width 13.9 % (11.8-14.3); White Blood Cell 7.2 10^3/uL (4.4-10.8)
[2023-05-03 21:14] LABS: Albumin 3.6 g/dL (3.4-5.0); Calcium 9.7 mg/dL (8.5-10.1); Potassium 4.3 mmol/L (3.5-5.1)
[2023-05-03 21:31] LABS: BUN/Creatinine Ratio 20.3 (10.0-20.0); Bilirubin, Total 0.4 mg/dL (0.2-1.0); Total Protein 7.5 g/dL (6.4-8.2)
[2023-05-04] MEDS ORDERED: CLIN300C70 PO (00:38)
[2023-05-04] MEDS ORDERED: ACET-1304 PO (05:03)
[2023-05-04 05:15] VITALS: BP 93/56
== END 2023-05-04 05:22 | disposition home or self-care (01) ==
LOC: ER 18:49
DX: L03.116 Cellulitis of left lower limb (principal); J44.9 Chronic obstructive pulmonary disease, unspecified; I10 Essential (primary) hypertension; F17.210 Nicotine dependence, cigarettes, uncomplicated; Z91.02 Food additives allergy status
CPT/HCPCS: 36415; 73700; 80053; 83605; 85025; 87040; 96365; 99285; J3490

== ENCOUNTER 2023-05-24 18:05 | Inpatient (IN) | payer MEDICARE, MEDICAID ==
[~2023-05-24] VITALS: Ht 195.6 cm; Wt 74.1 kg
[~2023-05-24 18:05] MED LIST changes: +ACET-1304 PO; +CLIN300C70 PO
[2023-05-24] MEDS ORDERED: VANCOMYCIN 1GM/250ML 250 ML IV ONE ×2 (18:45→22:30)
[2023-05-24] MEDS ORDERED: CEFEPIME 1GM/ 50ML 50 ML IV ONE (18:45)
[2023-05-24 19:42] LABS: Basophils # (auto) 0 10 ^3/uL (0-0.2); Basophils % (auto) 0.3 % (0.0-2.0); Eosinophils # (auto) 0 10 ^3/uL (0-0.8); Eosinophils % (auto) 0.7 % (0.0-7.0); Hemoglobin 12.3 g/dL (13.5-17.5); Lymphocytes # (auto) 1.8 10 ^3/uL (0.4-5.4); Lymphocytes % (auto) 24.1 % (10.0-50.0); Mean Corpuscular Hemoglobin 32.8 pg (28.0-32.0); Mean Corpuscular Hgb Conc. 34.2 g/dL (32.0-36.0); Mean Corpuscular Volume 95.8 fL (80.0-100.0); Monocytes # (auto) 0.6 10 ^3/uL (0-1.3); Monocytes % (auto) 7.4 % (0.0-12.0); Neutrophils # (auto) 5.1 10 ^3/uL (1.6-8.6); Neutrophils % (auto) 67.5 % (37.0-80.0); Red Blood Cells 3.75 10^6/uL (4.5-5.90); Red Cell Distribution Width 13.6 % (11.8-14.3); White Blood Cell 7.5 10^3/uL (4.4-10.8)
[2023-05-24 20:21] LABS: Calcium 9.6 mg/dL (8.5-10.1); Potassium 4.1 mmol/L (3.5-5.1)
[2023-05-24 20:27] LABS: Albumin 3.6 g/dL (3.4-5.0); BUN/Creatinine Ratio 15.3 (10.0-20.0); Bilirubin, Total 0.6 mg/dL (0.2-1.0); Total Protein 7.4 g/dL (6.4-8.2)
[2023-05-24] MEDS ORDERED: VANCOMYCIN PER PHARMACY 0 MG IV SCH (22:00)
[2023-05-24] MEDS ORDERED: ONDANSETRON HCL 4 MG/2 ML VIAL IV PRN (22:00)
[2023-05-24] MEDS ORDERED: ACETAMINOPHEN 325 MG TAB PO PRN (22:00)
[2023-05-24] MEDS ORDERED: CEFEPIME 1GM/ 50ML 50 ML IV SCH (22:00)
[2023-05-24] MEDS ORDERED: TEMAZEPAM 15 MG CAP PO PRN (22:00)
[2023-05-25] MEDS: ATORVASTATIN 20 MG TAB PO SCH ×2 (00:32→22:04)
[2023-05-25] MEDS: GABAPENTIN 300 MG CAP PO SCH ×4 (00:32→22:04)
[2023-05-25] MEDS: levETIRAcetam 500 MG TAB PO SCH ×4 (00:32→22:04)
[2023-05-25] MEDS: HYDROcodone-ACET 5/325MG TAB PO PRN ×5 (00:33→22:04)
[2023-05-25] MEDS: CEFEPIME 2GM/50ML NS 50 ML IV SCH ×3 (03:59→22:03)
[2023-05-25 07:30] VITALS: O2SAT 96
[2023-05-25 07:30] LABS: Basophils # (auto) 0 10 ^3/uL (0-0.2); Basophils % (auto) 0.7 % (0.0-2.0); Eosinophils # (auto) 0.1 10 ^3/uL (0-0.8); Eosinophils % (auto) 2.1 % (0.0-7.0); Hematocrit 38.3 % (41.0-53.0); Lymphocytes # (auto) 1.5 10 ^3/uL (0.4-5.4); Lymphocytes % (auto) 28.2 % (10.0-50.0); Mean Corpuscular Hemoglobin 32.9 pg (28.0-32.0); Mean Corpuscular Hgb Conc. 34.1 g/dL (32.0-36.0); Mean Corpuscular Volume 96.5 fL (80.0-100.0); Monocytes # (auto) 0.6 10 ^3/uL (0-1.3); Monocytes % (auto) 11.9 % (0.0-12.0); Neutrophils % (auto) 57.1 % (37.0-80.0); Red Blood Cells 3.97 10^6/uL (4.5-5.90); Red Cell Distribution Width 13.6 % (11.8-14.3); White Blood Cell 5.2 10^3/uL (4.4-10.8)
[2023-05-25 07:36] LABS: Albumin 3.5 g/dL (3.4-5.0); Calcium 9.4 mg/dL (8.5-10.1); Potassium 4.8 mmol/L (3.5-5.1)
[2023-05-25 07:41] LABS: BUN/Creatinine Ratio 16.4 (10.0-20.0); Bilirubin, Total 0.4 mg/dL (0.2-1.0); Total Protein 6.9 g/dL (6.4-8.2)
[2023-05-25] MEDS: LISINOPRIL 10 MG TAB PO SCH (09:52)
[2023-05-25] MEDS ORDERED: PANTOPRAZOLE 40 MG TAB PO SCH (10:00)
[2023-05-25] MEDS: VANCOMYCIN 1GM/250ML 250 ML IV SCH (11:00)
[2023-05-25 12:22] LABS: Cholesterol 123 mg/dL (< 200); HDL Cholesterol 37 mg/dL (40-59); LDL Cholesterol 73 mg/dL (< 100); Triglycerides 108 mg/dL (< 150)
[2023-05-25 14:51] LABS: INR 1.04 (0.9-1.15); Partial Thromboplastin Time 31.9 SEC (24.5-34.5)
[2023-05-25 15:37] LABS: Urine Bacteria NONE SEEN /hpf (None Seen); Urine Blood Negative /uL (Negative); Urine Specific Gravity 1.023 (1.001-1.035); Urine WBC 10 /hpf (0 - 3)
[2023-05-25 20:00] VITALS: PULSE 78; RESP 19; O2SAT 97
[2023-05-25 22:00] VITALS: BP 105/72; PULSE 78; RESP 19; TEMP 97.8; O2SAT 97
[2023-05-26] MEDS: MORPHINE SULFATE INJ 2 MG/ml SYRG IV PRN ×2 (01:17→18:41)
[2023-05-26 05:00] VITALS: BP 97/65; PULSE 65; RESP 17; TEMP 97.9; O2SAT 99
[2023-05-26] MEDS: HYDROcodone-ACET 5/325MG TAB PO PRN ×4 (05:09→22:24)
[2023-05-26] MEDS: GABAPENTIN 300 MG CAP PO SCH ×3 (06:13→21:10)
[2023-05-26] MEDS: levETIRAcetam 500 MG TAB PO SCH ×3 (06:13→21:09)
[2023-05-26] MEDS: CEFEPIME 2GM/50ML NS 50 ML IV SCH ×2 (08:54→21:11)
[2023-05-26 09:00] VITALS: BP 86/45; PULSE 65; RESP 20; TEMP 97.8; O2SAT 100
[2023-05-26] MEDS: LISINOPRIL 10 MG TAB PO SCH (09:47)
[2023-05-26] MEDS: VANCOMYCIN 1GM/250ML 250 ML IV SCH (11:27)
[2023-05-26 13:05] VITALS: BP 91/53; PULSE 94; RESP 18; TEMP 98.6; O2SAT 93
[2023-05-26] MEDS ORDERED: LIDOCAINE 1% (LOCAL ANESTH.) PF 5ml SDV ID ONE (14:15)
[2023-05-26 16:57] VITALS: BP 116/72; PULSE 89; RESP 20; TEMP 98.2; O2SAT 96
[2023-05-26] MEDS ORDERED: IOHEXOL 350 MG/ML 100ML IJ ONE (17:11)
[2023-05-26] MEDS: ATORVASTATIN 20 MG TAB PO SCH (21:10)
[2023-05-26] MEDS: SODIUM CHLOR 0.9% PF (SALINE LOCK) 10ML VIAL/SYR IV SCH (21:13)
[2023-05-26 22:00] VITALS: BP 99/63; PULSE 85; RESP 24; TEMP 97.2; O2SAT 99
[2023-05-27 05:00] VITALS: BP 115/68; PULSE 71; RESP 22; TEMP 96.5; O2SAT 91
[2023-05-27] MEDS: levETIRAcetam 500 MG TAB PO SCH ×3 (05:50→23:57)
[2023-05-27] MEDS: GABAPENTIN 300 MG CAP PO SCH ×3 (05:50→23:57)
[2023-05-27] MEDS: MORPHINE SULFATE INJ 2 MG/ml SYRG IV PRN (06:18)
[2023-05-27 09:00] VITALS: BP 132/87; PULSE 106; RESP 18; TEMP 97.8; O2SAT 96
[2023-05-27] MEDS: HYDROcodone-ACET 5/325MG TAB PO PRN ×2 (09:43→21:02)
[2023-05-27] MEDS: CEFEPIME 2GM/50ML NS 50 ML IV SCH ×2 (09:46→23:57)
[2023-05-27] MEDS: LISINOPRIL 10 MG TAB PO SCH (09:47)
[2023-05-27] MEDS: SODIUM CHLOR 0.9% PF (SALINE LOCK) 10ML VIAL/SYR IV SCH ×2 (09:48→22:00)
[2023-05-27] MEDS: VANCOMYCIN 1GM/250ML 250 ML IV SCH (10:58)
[2023-05-27 13:00] VITALS: BP 89/59; PULSE 89; RESP 20; TEMP 89; O2SAT 95
[2023-05-27 17:00] VITALS: BP_SYST 108; BP_SYST 160; BP_DIAS 70; BP_DIAS 84; PULSE 65; PULSE 85; RESP 16; RESP 19; TEMP 97.3; O2SAT 100; O2SAT 94
[2023-05-27 22:00] VITALS: BP 111/62; PULSE 69; RESP 20; TEMP 98.1; O2SAT 95
[2023-05-27] MEDS: ATORVASTATIN 20 MG TAB PO SCH (23:57)
[2023-05-28] VITALS (8 sets, daily range): BP systolic 102–152; BP diastolic 60–99; PULSE 51–91; RESP 13–17; TEMP 36.7; O2SAT 94–100
[2023-05-28] MEDS: HYDROcodone-ACET 5/325MG TAB PO PRN ×3 (00:47→22:57)
[2023-05-28] MEDS: levETIRAcetam 500 MG TAB PO SCH ×3 (06:04→22:53)
[2023-05-28] MEDS: GABAPENTIN 300 MG CAP PO SCH ×3 (06:04→22:53)
[2023-05-28] MEDS: LISINOPRIL 10 MG TAB PO SCH (10:57)
[2023-05-28] MEDS: SODIUM CHLOR 0.9% PF (SALINE LOCK) 10ML VIAL/SYR IV SCH ×2 (10:58→22:54)
[2023-05-28] MEDS: CEFEPIME 2GM/50ML NS 50 ML IV SCH ×2 (10:58→22:54)
[2023-05-28] MEDS: VANCOMYCIN 1GM/250ML 250 ML IV SCH (11:08)
[2023-05-28] MEDS ORDERED: ANGIOMAX 250 MG VIAL IV ONE (13:15)
[2023-05-28] MEDS ORDERED: SODIUM CHL 0.9% 0 ML ONE (13:15)
[2023-05-28] MEDS ORDERED: MIDAZOLAM HCL 2MG/2ML 2ml VIAL (1mg/ml) ONE ×3 (13:15→14:33)
[2023-05-28] MEDS ORDERED: fentaNYL CITRATE 100 MCG/2 ML VL ONE ×4 (13:15→15:26)
[2023-05-28] MEDS ORDERED: LIDOCAINE 2%HCL (LOCAL ANESTH.) INJ 20ML MDV ONE (13:36)
[2023-05-28] MEDS ORDERED: IOHEXOL 350 MG/ML 100ML IJ ONE ×2 (13:36→14:49)
[2023-05-28] MEDS ORDERED: HEPARIN SODIUM (PORCINE) 5000 UNITS/ML 1ML VIAL ONE ×3 (13:58→15:27)
[2023-05-28] MEDS ORDERED: VERAPAMIL 2.5MG/ML INJ 2ML VIAL IV ONE (14:51)
[2023-05-28] MEDS ORDERED: CLOPIDOGREL 300 MG TAB ONE (15:18)
[2023-05-28] MEDS ORDERED: diphenhdrAMINE HCL 50 MG/1 ML VL ONE (15:26)
[2023-05-28] MEDS ORDERED: SODIUM CHLORIDE 0.9% 1,000 ML IV ONE (16:00)
[2023-05-28] MEDS: MORPHINE SULFATE INJ 2 MG/ml SYRG IV PRN (20:42)
[2023-05-28] MEDS: ATORVASTATIN 20 MG TAB PO SCH (22:53)
[2023-05-29] MEDS ORDERED: HYDROmorphone HCL 2 MG/ML VL/or syr IV ONE (00:30)
[2023-05-29 05:00] VITALS: BP 113/62; PULSE 79; RESP 22; TEMP 98.2; O2SAT 98
[2023-05-29] MEDS: HYDROcodone-ACET 5/325MG TAB PO PRN (05:25)
[2023-05-29] MEDS: levETIRAcetam 500 MG TAB PO SCH ×3 (05:29→22:18)
[2023-05-29] MEDS: GABAPENTIN 300 MG CAP PO SCH ×3 (05:29→21:59)
[2023-05-29 07:30] VITALS: BP 128/73; TEMP 36.8
[2023-05-29] MEDS: CEFEPIME 2GM/50ML NS 50 ML IV SCH ×2 (08:10→22:00)
[2023-05-29] MEDS: ASPirin 81 mg TAB PO SCH (08:10)
[2023-05-29] MEDS: SODIUM CHLOR 0.9% PF (SALINE LOCK) 10ML VIAL/SYR IV SCH ×2 (08:10→22:19)
[2023-05-29] MEDS: CLOPIDOGREL BISULFATE 75 MG TAB PO SCH (08:10)
[2023-05-29] MEDS: LISINOPRIL 10 MG TAB PO SCH (08:11)
[2023-05-29] MEDS: MORPHINE SULFATE INJ 2 MG/ml SYRG IV PRN (08:11)
[2023-05-29 09:00] VITALS: BP 137/107; PULSE 87; RESP 24; TEMP 97.2; O2SAT 89
[2023-05-29 12:17] LABS: BUN/Creatinine Ratio 30.4 (10.0-20.0); Calcium 8.8 mg/dL (8.5-10.1); Potassium 4.8 mmol/L (3.5-5.1)
[2023-05-29 13:00] VITALS: BP 99/54; PULSE 84; RESP 18; TEMP 97.7; O2SAT 98
[2023-05-29] MEDS: HYDROmorphone HCL 2 MG/ML VL/or syr IV PRN ×3 (13:19→23:55)
[2023-05-29] MEDS ORDERED: VANCOMYCIN 1GM/250ML 250 ML IV SCH (14:00)
[2023-05-29 17:00] VITALS: BP 103/47; PULSE 75; RESP 18; TEMP 98; O2SAT 95
[2023-05-29 22:00] VITALS: BP 102/63; PULSE 72; RESP 22; TEMP 98.2; O2SAT 99
[2023-05-29] MEDS: ATORVASTATIN 20 MG TAB PO SCH (22:00)
[2023-05-30] VITALS (7 sets, daily range): BP systolic 86–129; BP diastolic 47–71; PULSE 65–75; RESP 18–22; TEMP 97.5–98.2; O2SAT 91–98
[2023-05-30] MEDS: HYDROmorphone HCL 2 MG/ML VL/or syr IV PRN ×4 (05:58→20:31)
[2023-05-30] MEDS: levETIRAcetam 500 MG TAB PO SCH ×3 (06:09→21:42)
[2023-05-30] MEDS: GABAPENTIN 300 MG CAP PO SCH ×3 (06:09→21:43)
[2023-05-30 06:17] LABS: Potassium 4.7 mmol/L (3.5-5.1)
[2023-05-30 06:26] LABS: BUN/Creatinine Ratio 28.2 (10.0-20.0); Calcium 9.4 mg/dL (8.5-10.1)
[2023-05-30 06:41] LABS: Basophils # (auto) 0 10 ^3/uL (0-0.2); Basophils % (auto) 0.6 % (0.0-2.0); Eosinophils # (auto) 0.1 10 ^3/uL (0-0.8); Eosinophils % (auto) 1.5 % (0.0-7.0); Lymphocytes # (auto) 1.5 10 ^3/uL (0.4-5.4); Lymphocytes % (auto) 26.4 % (10.0-50.0); Mean Corpuscular Hgb Conc. 34.3 g/dL (32.0-36.0); Mean Corpuscular Volume 96.2 fL (80.0-100.0); Monocytes # (auto) 0.8 10 ^3/uL (0-1.3); Neutrophils # (auto) 3.4 10 ^3/uL (1.6-8.6); Neutrophils % (auto) 58.5 % (37.0-80.0); Red Blood Cells 3.01 10^6/uL (4.5-5.90); Red Cell Distribution Width 13.5 % (11.8-14.3); White Blood Cell 5.9 10^3/uL (4.4-10.8)
[2023-05-30] MEDS: LISINOPRIL 10 MG TAB PO SCH (10:00)
[2023-05-30] MEDS: ASPirin 81 mg TAB PO SCH (10:14)
[2023-05-30] MEDS: CLOPIDOGREL BISULFATE 75 MG TAB PO SCH (10:15)
[2023-05-30] MEDS: CEFEPIME 2GM/50ML NS 50 ML IV SCH (10:15)
[2023-05-30] MEDS: SODIUM CHLOR 0.9% PF (SALINE LOCK) 10ML VIAL/SYR IV SCH ×2 (10:20→21:42)
[2023-05-30] MEDS ORDERED: CEFTRIAXONE SODIUM 2 GM in D5W 5% 100 ML IV ONE (11:45)
[2023-05-30] MEDS: ATORVASTATIN 20 MG TAB PO SCH (21:43)
[2023-05-31 05:00] VITALS: BP 131/71; PULSE 73; RESP 18; TEMP 98.8; O2SAT 93
[2023-05-31] MEDS: levETIRAcetam 500 MG TAB PO SCH ×2 (05:47→14:42)
[2023-05-31] MEDS: GABAPENTIN 300 MG CAP PO SCH ×2 (05:47→14:42)
[2023-05-31 08:00] VITALS: PULSE 84; RESP 20
[2023-05-31 08:56] VITALS: BP 111/58; PULSE 71; RESP 21; TEMP 98.2; O2SAT 93
[2023-05-31] MEDS ORDERED: CEFTRIAXONE SODIUM 2 GM in D5W 5% 100 ML IV SCH (10:00)
[2023-05-31] MEDS: ASPirin 81 mg TAB PO SCH (10:29)
[2023-05-31] MEDS: CLOPIDOGREL BISULFATE 75 MG TAB PO SCH (10:29)
[2023-05-31] MEDS: LISINOPRIL 10 MG TAB PO SCH (10:32)
[2023-05-31] MEDS: SODIUM CHLOR 0.9% PF (SALINE LOCK) 10ML VIAL/SYR IV SCH (10:33)
[2023-05-31] MEDS: HYDROmorphone HCL 2 MG/ML VL/or syr IV PRN (11:06)
[2023-05-31 12:59] VITALS: BP 114/60; PULSE 87; RESP 17; TEMP 98.1; O2SAT 93
[2023-05-31 17:00] VITALS: BP 101/59; PULSE 71; RESP 19; TEMP 98; O2SAT 99
[2023-05-31 18:29] VITALS: BP 101/59; PULSE 71; RESP 18; TEMP 98; O2SAT 99
[2023-05-31] MEDS ORDERED: LACTULOSE 20Gm/30ML SOLN PO ONE (21:00)
[2023-06-01] MEDS ORDERED: levoFLOXacin 750MG 150 ML IV SCH (10:00)
== END 2023-05-31 20:05 | DRG 182 ==
LOC: ER 18:05 → OVERFLOW 21:56 → WEST WING 05-25 17:02
PROVIDERS: ADMIT Family Medicine; ATTEND Family Medicine
PROC: 02HV33Z Insertion of Infusion Device into Superior Vena Cava, Percutaneous Approach (ICD-10-PCS; 2023-05-26)
PROC: B548ZZA Ultrasonography of Superior Vena Cava, Guidance (ICD-10-PCS; 2023-05-26)
PROC: 047L3FZ Dilation of Left Femoral Artery with Three Intraluminal Devices, Percutaneous Approach (ICD-10-PCS; 2023-05-28)
PROC: 047N3ZZ Dilation of Left Popliteal Artery, Percutaneous Approach (ICD-10-PCS; 2023-05-28)
PROC: B41GYZZ Fluoroscopy of Left Lower Extremity Arteries using Other Contrast (ICD-10-PCS; 2023-05-28)
PROC: 0JBR0ZZ Excision of Left Foot Subcutaneous Tissue and Fascia, Open Approach (ICD-10-PCS; principal; 2023-05-30)
DX: I73.9 Peripheral vascular disease, unspecified (principal); J44.1 Chronic obstructive pulmonary disease with (acute) exacerbation; R54 Age-related physical debility; L03.116 Cellulitis of left lower limb; M86.8X7 Other osteomyelitis, ankle and foot; G40.909 Epilepsy, unspecified, not intractable, without status epilepticus; N18.9 Chronic kidney disease, unspecified; I12.9 Hypertensive chronic kidney disease with stage 1 through stage 4 chronic kidney disease, or unspecified chronic kidney disease; F17.210 Nicotine dependence, cigarettes, uncomplicated; Z20.822 Contact with and (suspected) exposure to COVID-19; I25.10 Atherosclerotic heart disease of native coronary artery without angina pectoris; L97.529 Non-pressure chronic ulcer of other part of left foot with unspecified severity; Z79.82 Long term (current) use of aspirin; Z82.49 Family history of ischemic heart disease and other diseases of the circulatory system; I25.2 Old myocardial infarction; Z91.199 Patient's noncompliance with other medical treatment and regimen due to unspecified reason; Z71.6 Tobacco abuse counseling
CPT/HCPCS: 36415; 36569; 37224; 37226; 71045; 73630; 73718; 75635; 75710; 80048; 80053; 80061; 80202; 81001; 82962; 84484; 85025; 85610; 85730; 86850; 86900; 86901; 87077; 87081; 87186; 87205; 87426; 93925; 97163; 99152; 99153; C1725; C1769; C1876; G0378; J0692; J0696; J2250; J7060

== ENCOUNTER 2023-06-25 13:51 | Inpatient (IN) | payer MEDICARE, MEDICAID ==
[~2023-06-25] VITALS: Ht 195.6 cm; Wt 81.4 kg
[2023-06-25 16:09] LABS: Basophils # (auto) 0 10 ^3/uL (0-0.2); Basophils % (auto) 0.9 % (0.0-2.0); Eosinophils # (auto) 0.2 10 ^3/uL (0-0.8); Eosinophils % (auto) 4.2 % (0.0-7.0); Hematocrit 32.6 % (41.0-53.0); Hemoglobin 11.2 g/dL (13.5-17.5); Lymphocytes # (auto) 1.1 10 ^3/uL (0.4-5.4); Lymphocytes % (auto) 21.7 % (10.0-50.0); Mean Corpuscular Hemoglobin 32.7 pg (28.0-32.0); Mean Corpuscular Hgb Conc. 34.3 g/dL (32.0-36.0); Mean Corpuscular Volume 95.4 fL (80.0-100.0); Monocytes # (auto) 0.5 10 ^3/uL (0-1.3); Monocytes % (auto) 9.7 % (0.0-12.0); Neutrophils # (auto) 3.3 10 ^3/uL (1.6-8.6); Neutrophils % (auto) 63.5 % (37.0-80.0); Nucleated Red Blood Cells % 0.1 %; Red Blood Cells 3.41 10^6/uL (4.5-5.90); Red Cell Distribution Width 13.8 % (11.8-14.3); White Blood Cell 5.3 10^3/uL (4.4-10.8)
[2023-06-25 16:38] LABS: Alanine Aminotransferase 11 U/L (7-40); Albumin 3.9 g/dL (3.2-4.8); Alkaline Phosphatase 94 U/L (46-116); Anion Gap 4.9 (5-15); Aspartate Aminotransferase 11 U/L (13-40); BUN/Creatinine Ratio 19.5 (10.0-20.0); Bilirubin, Total 0.4 mg/dL (0.2-1.0); Blood Urea Nitrogen 17 mg/dL (9-23); Calcium 9.5 mg/dL (8.5-10.1); Carbon Dioxide 26.1 mmol/L (20-30); Chloride 109 mmol/L (98-107); Glucose 109 mg/dL (74-106); Potassium 4.2 mmol/L (3.5-5.1); Sodium 140 mmol/L (136-145); Total Protein 6.3 g/dL (5.7-8.2)
[2023-06-25 17:53] LABS: INR 0.98 (0.9-1.15); Prothrombin Time 10.3 sec (9.3-11.8)
[2023-06-25 18:10] VITALS: PULSE 73; RESP 17; O2SAT 96
[2023-06-25] MEDS ORDERED: MORPHINE SULFATE INJ 2 MG/ml SYRG IV PRN (18:15)
[2023-06-25] MEDS ORDERED: ONDANSETRON HCL 4 MG/2 ML VIAL IV PRN (18:15)
[2023-06-25] MEDS ORDERED: levoFLOXacin 500MG 100 ML IV SCH (18:17)
[2023-06-25] MEDS ORDERED: IPRATROPIUM BROM 0.5 MG/2.5ML INH SOL NEB PRN (18:30)
[2023-06-25] MEDS ORDERED: ALBUTEROL SULF 2.5 MG/0.5ML(0.5%) NEB SOLN NEB PRN (18:30)
[2023-06-25 18:32] VITALS: PULSE 67; RESP 16; O2SAT 94
[2023-06-25] MEDS: levoFLOXacin 750MG 150 ML IV SCH (18:42)
[2023-06-25] MEDS: SODIUM CHLORIDE 0.9% 1,000 ML IV SCH ×2 (18:42→20:36)
[2023-06-25 22:30] VITALS: BP 91/56; PULSE 67; RESP 16; TEMP 98.3; O2SAT 94
[2023-06-25] MEDS: levETIRAcetam 500 MG TAB PO SCH (22:51)
[2023-06-25] MEDS: GABAPENTIN 300 MG CAP PO SCH (22:51)
[2023-06-26] VITALS (9 sets, daily range): BP systolic 100–115; BP diastolic 50–64; PULSE 64–75; RESP 16–20; TEMP 97.5–98.4; O2SAT 95–99
[2023-06-26] MEDS: SODIUM CHLORIDE 0.9% 1,000 ML IV SCH ×2 (04:16→17:58)
[2023-06-26] MEDS: GABAPENTIN 300 MG CAP PO SCH ×3 (05:30→22:21)
[2023-06-26] MEDS: levETIRAcetam 500 MG TAB PO SCH ×3 (05:30→22:21)
[2023-06-26] MEDS: LISINOPRIL 10 MG TAB PO SCH (10:00)
[2023-06-26 14:13] LABS: Basophils # (auto) 0.1 10 ^3/uL (0-0.2); Basophils % (auto) 1.4 % (0.0-2.0); Eosinophils # (auto) 0.2 10 ^3/uL (0-0.8); Eosinophils % (auto) 3.6 % (0.0-7.0); Hematocrit 32.6 % (41.0-53.0); Lymphocytes # (auto) 0.9 10 ^3/uL (0.4-5.4); Lymphocytes % (auto) 14.1 % (10.0-50.0); Mean Corpuscular Hemoglobin 32.1 pg (28.0-32.0); Mean Corpuscular Hgb Conc. 33.9 g/dL (32.0-36.0); Mean Corpuscular Volume 94.7 fL (80.0-100.0); Monocytes # (auto) 0.4 10 ^3/uL (0-1.3); Monocytes % (auto) 5.9 % (0.0-12.0); Neutrophils # (auto) 4.6 10 ^3/uL (1.6-8.6); Red Blood Cells 3.44 10^6/uL (4.5-5.90); Red Cell Distribution Width 13.7 % (11.8-14.3); White Blood Cell 6.1 10^3/uL (4.4-10.8)
[2023-06-26 15:37] LABS: Alanine Aminotransferase 10 U/L (7-40); Albumin 3.6 g/dL (3.2-4.8); Alkaline Phosphatase 79 U/L (46-116); Anion Gap 5.8 (5-15); Aspartate Aminotransferase 10 U/L (13-40); Blood Urea Nitrogen 15 mg/dL (9-23); Calcium 9.1 mg/dL (8.5-10.1); Carbon Dioxide 23.2 mmol/L (20-30); Chloride 112 mmol/L (98-107); Glucose 113 mg/dL (74-106); Potassium 3.9 mmol/L (3.5-5.1); Sodium 141 mmol/L (136-145)
[2023-06-26 15:38] LABS: Bilirubin, Total 0.5 mg/dL (0.2-1.0); Total Protein 5.8 g/dL (5.7-8.2)
[2023-06-26] MEDS: levoFLOXacin 750MG 150 ML IV SCH (18:01)
[2023-06-26] MEDS: DOCUSATE SOD 100 MG CAP PO PRN (18:14)
[2023-06-26] MEDS: PRAVASTATIN SODIUM 20 MG TAB PO SCH (22:21)
[2023-06-27] VITALS (9 sets, daily range): BP systolic 94–118; BP diastolic 31–69; PULSE 58–70; RESP 16–20; TEMP 97.3–98.5; O2SAT 92–98
[2023-06-27] MEDS: SODIUM CHLORIDE 0.9% 1,000 ML IV SCH ×3 (05:43→20:15)
[2023-06-27] MEDS: levETIRAcetam 500 MG TAB PO SCH ×3 (05:43→21:30)
[2023-06-27] MEDS: GABAPENTIN 300 MG CAP PO SCH ×3 (05:43→21:30)
[2023-06-27] MEDS: LISINOPRIL 10 MG TAB PO SCH (09:42)
[2023-06-27] MEDS ORDERED: VANCOMYCIN PER PHARMACY 0 MG IV SCH (14:30)
[2023-06-27] MEDS ORDERED: TRIMETHOPRIM IV SCH (14:45)
[2023-06-27] MEDS ORDERED: SULFAMETHOXAZOLE IV SCH (14:45)
[2023-06-27] MEDS ORDERED: BACTRIM 5MG/KG Q8HR PER RX 10 ML IV SCH (16:45)
[2023-06-27] MEDS: levoFLOXacin 750MG 150 ML IV SCH (17:51)
[2023-06-27] MEDS: DAKINS HALF STR 0.25% (NaHypochlorite) 473 ML TOPICAL SOL TOP SCH (20:27)
[2023-06-27] MEDS: SULFAMETH-TRIMETH 80/16MG-ML 20 ML in D5W 5% 500 ML IV SCH (21:29)
[2023-06-27] MEDS: PRAVASTATIN SODIUM 20 MG TAB PO SCH (21:30)
[2023-06-28] VITALS (8 sets, daily range): BP systolic 83–109; BP diastolic 49–65; PULSE 63–73; RESP 16–20; TEMP 97.3–98.4; O2SAT 92–100
[2023-06-28] MEDS: levETIRAcetam 500 MG TAB PO SCH ×3 (05:52→21:42)
[2023-06-28] MEDS: SODIUM CHLORIDE 0.9% 1,000 ML IV SCH ×3 (05:52→17:00)
[2023-06-28] MEDS: GABAPENTIN 300 MG CAP PO SCH ×3 (05:52→21:42)
[2023-06-28] MEDS: SULFAMETH-TRIMETH 80/16MG-ML 20 ML in D5W 5% 500 ML IV SCH (09:44)
[2023-06-28] MEDS: LISINOPRIL 10 MG TAB PO SCH (09:48)
[2023-06-28] MEDS: DAKINS HALF STR 0.25% (NaHypochlorite) 473 ML TOPICAL SOL TOP SCH (09:48)
[2023-06-28] MEDS ORDERED: DAKINS HALF STR 0.25% (NaHypochlorite) 473 ML TOPICAL SOL TOP SCH (10:00)
[2023-06-28] MEDS ORDERED: ALBUTEROL SULF 2.5 MG/0.5ML(0.5%) NEB SOLN NEB PRN (12:45)
[2023-06-28] MEDS ORDERED: VANCOMYCIN PER PHARMACY 0 MG IV SCH (17:00)
[2023-06-28] MEDS ORDERED: ASPirin 81 mg TAB PO ONE (17:00)
[2023-06-28] MEDS ORDERED: VANCOMYCIN 1GM/250ML 250 ML IV ONE (18:00)
[2023-06-28] MEDS: levoFLOXacin 750MG 150 ML IV SCH (18:04)
[2023-06-28] MEDS: DOCUSATE SOD 100 MG CAP PO PRN (18:04)
[2023-06-28 20:36] LABS: Albumin 3.6 g/dL (3.2-4.8); Alkaline Phosphatase 75 U/L (46-116); Anion Gap 7.2 (5-15); Aspartate Aminotransferase < 8 U/L (13-40); BUN/Creatinine Ratio 11.1 (10.0-20.0); Bilirubin, Total 0.3 mg/dL (0.2-1.0); Blood Urea Nitrogen 15 mg/dL (9-23); Carbon Dioxide 23.8 mmol/L (20-30); Chloride 107 mmol/L (98-107); Glucose 150 mg/dL (74-106); Potassium 4.1 mmol/L (3.5-5.1); Sodium 138 mmol/L (136-145); Total Protein 5.8 g/dL (5.7-8.2)
[2023-06-28 20:38] LABS: Alanine Aminotransferase 9 U/L (7-40)
[2023-06-28] MEDS: ATORVASTATIN 20 MG TAB PO SCH ×2 (21:42→21:50)
[2023-06-29] VITALS (11 sets, daily range): BP systolic 70–109; BP diastolic 40–54; PULSE 66–90; RESP 18–22; TEMP 97.7–99.2; O2SAT 94–100
[2023-06-29] MEDS: GABAPENTIN 300 MG CAP PO SCH ×3 (05:31→22:20)
[2023-06-29] MEDS: levETIRAcetam 500 MG TAB PO SCH ×3 (05:31→22:19)
[2023-06-29] MEDS: SODIUM CHLORIDE 0.9% 1,000 ML IV SCH ×3 (05:44→22:30)
[2023-06-29] MEDS: ASPirin 81 mg TAB PO SCH (09:26)
[2023-06-29] MEDS: FLORASTOR (S. BOULARDII) 250 MG CAP PO SCH (09:26)
[2023-06-29 09:27] LABS: Basophils # (auto) 0 10 ^3/uL (0-0.2); Basophils % (auto) 0.1 % (0.0-2.0); Eosinophils # (auto) 0.1 10 ^3/uL (0-0.8); Eosinophils % (auto) 1.5 % (0.0-7.0); Hematocrit 30.6 % (41.0-53.0); Hemoglobin 10.6 g/dL (13.5-17.5); Lymphocytes # (auto) 0.4 10 ^3/uL (0.4-5.4); Lymphocytes % (auto) 6.2 % (10.0-50.0); Mean Corpuscular Hemoglobin 32.5 pg (28.0-32.0); Mean Corpuscular Hgb Conc. 34.5 g/dL (32.0-36.0); Monocytes # (auto) 0.3 10 ^3/uL (0-1.3); Monocytes % (auto) 4.7 % (0.0-12.0); Neutrophils # (auto) 5.8 10 ^3/uL (1.6-8.6); Neutrophils % (auto) 87.5 % (37.0-80.0); Nucleated Red Blood Cells % 0.1 %; Red Blood Cells 3.25 10^6/uL (4.5-5.90); Red Cell Distribution Width 13.7 % (11.8-14.3); White Blood Cell 6.7 10^3/uL (4.4-10.8)
[2023-06-29] MEDS: DAKINS HALF STR 0.25% (NaHypochlorite) 473 ML TOPICAL SOL TOP SCH (09:28)
[2023-06-29 09:43] LABS: INR 1.09 (0.9-1.15); Partial Thromboplastin Time 33.5 SEC (24.5-34.5); Prothrombin Time 11.4 sec (9.3-11.8)
[2023-06-29 10:16] LABS: Anion Gap 6.3 (5-15); Carbon Dioxide 22.7 mmol/L (20-30); Chloride 107 mmol/L (98-107); Sodium 136 mmol/L (136-145)
[2023-06-29 10:17] LABS: Calcium 8.6 mg/dL (8.5-10.1)
[2023-06-29 10:22] LABS: BUN/Creatinine Ratio 11.5 (10.0-20.0); Blood Urea Nitrogen 15 mg/dL (9-23); Glucose 111 mg/dL (74-106)
[2023-06-29] MEDS ORDERED: VANCOMYCIN 1GM/250ML 250 ML IV SCH (11:00)
[2023-06-29] MEDS ORDERED: SODIUM CHLORIDE 0.9% 250 ML IV ONE (12:30)
[2023-06-29] MEDS ORDERED: CEFEPIME 2GM/50ML NS 50 ML IV ONE (12:30)
[2023-06-29] MEDS: KETOROLAC TROMETH 30 MG/ML 1ML VIAL IV PRN ×2 (18:00→23:40)
[2023-06-29 18:50] LABS: Urine Bacteria NONE SEEN /hpf (None Seen); Urine Blood Negative /uL (Negative); Urine Clarity Clear (Clear); Urine Color Yellow (Yellow); Urine Hyaline Cast FEW /lpf (0 - 2); Urine Protein, UAD Negative (Negative); Urine Specific Gravity 1.019 (1.001-1.035); Urine Urobilinogen Normal (Negative); Urine WBC 1 /hpf (0 - 3); Urine pH 6.5 (5.0-8.0)
[2023-06-29] MEDS: ATORVASTATIN 20 MG TAB PO SCH (22:00)
[2023-06-29] MEDS: CEFEPIME 2GM/50ML NS 50 ML IV SCH (22:00)
[2023-06-29] MEDS: DOCUSATE SOD 100 MG CAP PO PRN (22:21)
[2023-06-29] MEDS ORDERED: ALBUMIN 5% 250 ML IV ONE (22:45)
[2023-06-30] VITALS (11 sets, daily range): BP systolic 72–125; BP diastolic 50–69; PULSE 68–85; RESP 17–20; TEMP 98–99; O2SAT 90–100
[2023-06-30] MEDS: VANCOMYCIN 1GM/250ML 250 ML IV SCH ×2 (00:48→13:00)
[2023-06-30] MEDS: GABAPENTIN 300 MG CAP PO SCH ×3 (05:07→22:08)
[2023-06-30] MEDS: levETIRAcetam 500 MG TAB PO SCH ×3 (05:07→22:08)
[2023-06-30] MEDS: CEFEPIME 2GM/50ML NS 50 ML IV SCH ×3 (05:10→20:37)
[2023-06-30] MEDS: SODIUM CHLORIDE 0.9% 1,000 ML IV SCH ×2 (08:30→18:30)
[2023-06-30] MEDS: FLORASTOR (S. BOULARDII) 250 MG CAP PO SCH (10:00)
[2023-06-30] MEDS: DAKINS HALF STR 0.25% (NaHypochlorite) 473 ML TOPICAL SOL TOP SCH (10:00)
[2023-06-30] MEDS: ASPirin 81 mg TAB PO SCH (10:00)
[2023-06-30] MEDS ORDERED: LIDOCAINE 1% HCL (LOCAL ANESTH.) INJ 20ML MDV ONE (11:49)
[2023-06-30] MEDS ORDERED: BUPIVACAINE 0.5% P/F INJ 10 ML VIAL ONE (11:50)
[2023-06-30] MEDS ORDERED: MIDAZOLAM HCL 2MG/2ML 2ml VIAL (1mg/ml) ONE (12:11)
[2023-06-30] MEDS ORDERED: DAKINS QUARTER STR 0.125% (NaHypochlorite) 473 ML TOPICAL SOL TOP ONE (12:30)
[2023-06-30] MEDS ORDERED: ONDANSETRON HCL 4 MG/2 ML VIAL IV PRN (13:00)
[2023-06-30] MEDS ORDERED: LIDOCAINE 2% (LOCAL ANESTH.) PF 5ml SDV ONE (13:01)
[2023-06-30] MEDS ORDERED: ONDANSETRON HCL 4 MG/2 ML VIAL ONE (13:01)
[2023-06-30] MEDS ORDERED: PROPOFOL 10 MG/ML 20 ML IV ONE (13:01)
[2023-06-30] MEDS: KETOROLAC TROMETH 30 MG/ML 1ML VIAL IV PRN (18:17)
[2023-06-30 19:57] LABS: Basophils # (auto) 0 10 ^3/uL (0-0.2); Basophils % (auto) 0.2 % (0.0-2.0); Eosinophils # (auto) 0.3 10 ^3/uL (0-0.8); Eosinophils % (auto) 4.8 % (0.0-7.0); Hematocrit 28.8 % (41.0-53.0); Hemoglobin 9.8 g/dL (13.5-17.5); Lymphocytes # (auto) 0.2 10 ^3/uL (0.4-5.4); Lymphocytes % (auto) 3.4 % (10.0-50.0); Mean Corpuscular Hemoglobin 32.4 pg (28.0-32.0); Mean Corpuscular Volume 95.3 fL (80.0-100.0); Monocytes # (auto) 0.4 10 ^3/uL (0-1.3); Monocytes % (auto) 6.2 % (0.0-12.0); Neutrophils # (auto) 4.8 10 ^3/uL (1.6-8.6); Neutrophils % (auto) 85.4 % (37.0-80.0); Nucleated Red Blood Cells % 0.1 %; Red Blood Cells 3.02 10^6/uL (4.5-5.90); White Blood Cell 5.7 10^3/uL (4.4-10.8)
[2023-06-30 20:24] LABS: Anion Gap 4.6 (5-15); Calcium 8.2 mg/dL (8.7-10.4); Carbon Dioxide 20.4 mmol/L (20-30); Chloride 109 mmol/L (98-107); Potassium 4.2 mmol/L (3.5-5.1); Sodium 134 mmol/L (136-145)
[2023-06-30 20:30] LABS: BUN/Creatinine Ratio 15.1 (10.0-20.0); Blood Urea Nitrogen 22 mg/dL (9-23); Glucose 116 mg/dL (74-106)
[2023-06-30] MEDS: DOCUSATE SOD 100 MG CAP PO PRN (20:37)
[2023-06-30] MEDS ORDERED: SODIUM CHLORIDE 0.9% 1,000 ML IV ONE (21:45)
[2023-06-30] MEDS: ATORVASTATIN 20 MG TAB PO SCH (22:08)
[2023-07-01] MEDS: VANCOMYCIN 1GM/250ML 250 ML IV SCH ×3 (01:00→14:00)
[2023-07-01] MEDS: KETOROLAC TROMETH 30 MG/ML 1ML VIAL IV PRN (03:04)
[2023-07-01] MEDS: SODIUM CHLORIDE 0.9% 1,000 ML IV SCH ×2 (04:21→14:30)
[2023-07-01] MEDS: CEFEPIME 2GM/50ML NS 50 ML IV SCH (05:05)
[2023-07-01] MEDS: GABAPENTIN 300 MG CAP PO SCH ×3 (05:05→23:23)
[2023-07-01] MEDS: levETIRAcetam 500 MG TAB PO SCH ×3 (05:05→23:24)
[2023-07-01 06:43] LABS: Anion Gap 5.6 (5-15); Carbon Dioxide 19.4 mmol/L (20-30); Chloride 110 mmol/L (98-107); Potassium 4.3 mmol/L (3.5-5.1); Sodium 135 mmol/L (136-145)
[2023-07-01 06:44] LABS: Calcium 8.3 mg/dL (8.7-10.4)
[2023-07-01 06:49] LABS: BUN/Creatinine Ratio 15.3 (10.0-20.0); Blood Urea Nitrogen 21 mg/dL (9-23); Glucose 115 mg/dL (74-106)
[2023-07-01 07:32] LABS: Basophils # (auto) 0 10 ^3/uL (0-0.2); Basophils % (auto) 0.3 % (0.0-2.0); Eosinophils # (auto) 0.3 10 ^3/uL (0-0.8); Eosinophils % (auto) 6.2 % (0.0-7.0); Hematocrit 26.3 % (41.0-53.0); Lymphocytes # (auto) 0.4 10 ^3/uL (0.4-5.4); Lymphocytes % (auto) 8.3 % (10.0-50.0); Mean Corpuscular Hemoglobin 33.2 pg (28.0-32.0); Mean Corpuscular Hgb Conc. 34.2 g/dL (32.0-36.0); Mean Corpuscular Volume 97.1 fL (80.0-100.0); Monocytes # (auto) 0.4 10 ^3/uL (0-1.3); Monocytes % (auto) 7.4 % (0.0-12.0); Neutrophils % (auto) 77.8 % (37.0-80.0); Red Blood Cells 2.71 10^6/uL (4.5-5.90); Red Cell Distribution Width 14.3 % (11.8-14.3); White Blood Cell 5.1 10^3/uL (4.4-10.8)
[2023-07-01 09:22] VITALS: BP 92/44; PULSE 61; RESP 20; TEMP 97.5; O2SAT 97
[2023-07-01] MEDS: DAKINS HALF STR 0.25% (NaHypochlorite) 473 ML TOPICAL SOL TOP SCH (10:17)
[2023-07-01] MEDS: ASPirin 81 mg TAB PO SCH (10:17)
[2023-07-01] MEDS: FLORASTOR (S. BOULARDII) 250 MG CAP PO SCH (10:17)
[2023-07-01 10:20] VITALS: O2SAT 95
[2023-07-01] MEDS ORDERED: HYDROcodone-ACET 5/325MG TAB PO PRN (11:00)
[2023-07-01] MEDS: MORPHINE SULFATE INJ 2 MG/ml SYRG IV PRN (14:25)
[2023-07-01] MEDS: HYDROcodone-ACET 5/325MG TAB PO PRN (16:57)
[2023-07-01] MEDS ORDERED: LORazepam 2MG/ML-1ML VIAL ONE (18:20)
[2023-07-01] MEDS ORDERED: LORazepam 2MG/ML-1ML VIAL IV PRN (18:30)
[2023-07-01 20:00] VITALS: PULSE 64; RESP 18
[2023-07-01 22:00] VITALS: BP 104/59; PULSE 64; RESP 18; TEMP 98; O2SAT 97
[2023-07-01] MEDS: ATORVASTATIN 20 MG TAB PO SCH (22:00)
[2023-07-01 22:18] LABS: Basophils # (auto) 0 10 ^3/uL (0-0.2); Basophils % (auto) 0.3 % (0.0-2.0); Eosinophils # (auto) 0.4 10 ^3/uL (0-0.8); Hematocrit 27.1 % (41.0-53.0); Hemoglobin 9.2 g/dL (13.5-17.5); Lymphocytes # (auto) 0.6 10 ^3/uL (0.4-5.4); Lymphocytes % (auto) 14.6 % (10.0-50.0); Mean Corpuscular Hemoglobin 32.7 pg (28.0-32.0); Mean Corpuscular Volume 96.2 fL (80.0-100.0); Monocytes # (auto) 0.4 10 ^3/uL (0-1.3); Monocytes % (auto) 8.9 % (0.0-12.0); Neutrophils # (auto) 2.7 10 ^3/uL (1.6-8.6); Neutrophils % (auto) 67.2 % (37.0-80.0); Nucleated Red Blood Cells % 0.1 %; Red Blood Cells 2.82 10^6/uL (4.5-5.90); Red Cell Distribution Width 13.6 % (11.8-14.3)
[2023-07-01 22:31] LABS: Chloride 113 mmol/L (98-107); Potassium 4.3 mmol/L (3.5-5.1); Sodium 139 mmol/L (136-145)
[2023-07-01 22:32] LABS: Anion Gap 5.8 (5-15); Calcium 8.5 mg/dL (8.7-10.4); Carbon Dioxide 20.2 mmol/L (20-30)
[2023-07-01 22:37] LABS: BUN/Creatinine Ratio 11.6 (10.0-20.0); Blood Urea Nitrogen 13 mg/dL (9-23); Glucose 133 mg/dL (74-106)
[2023-07-01] MEDS: DOCUSATE SOD 100 MG CAP PO PRN (23:23)
[2023-07-02] VITALS (8 sets, daily range): BP systolic 100–120; BP diastolic 59–64; PULSE 64–91; RESP 16–18; TEMP 97.9–99.3; O2SAT 91–97
[2023-07-02] MEDS: SODIUM CHLORIDE 0.9% 1,000 ML IV SCH ×2 (00:30→10:30)
[2023-07-02] MEDS: MORPHINE SULFATE INJ 2 MG/ml SYRG IV PRN ×2 (01:24→06:31)
[2023-07-02] MEDS: VANCOMYCIN 1GM/250ML 250 ML IV SCH ×2 (06:00→22:25)
[2023-07-02] MEDS: GABAPENTIN 300 MG CAP PO SCH ×3 (06:23→22:18)
[2023-07-02] MEDS: levETIRAcetam 500 MG TAB PO SCH ×3 (06:23→22:19)
[2023-07-02 06:43] LABS: Basophils # (auto) 0 10 ^3/uL (0-0.2); Basophils % (auto) 0.4 % (0.0-2.0); Eosinophils # (auto) 0.3 10 ^3/uL (0-0.8); Eosinophils % (auto) 7.2 % (0.0-7.0); Hematocrit 26.2 % (41.0-53.0); Hemoglobin 9.1 g/dL (13.5-17.5); Lymphocytes # (auto) 0.7 10 ^3/uL (0.4-5.4); Lymphocytes % (auto) 15.7 % (10.0-50.0); Mean Corpuscular Hgb Conc. 34.7 g/dL (32.0-36.0); Mean Corpuscular Volume 95.3 fL (80.0-100.0); Monocytes # (auto) 0.4 10 ^3/uL (0-1.3); Monocytes % (auto) 9.2 % (0.0-12.0); Neutrophils # (auto) 2.8 10 ^3/uL (1.6-8.6); Neutrophils % (auto) 67.5 % (37.0-80.0); Nucleated Red Blood Cells % 0.2 %; Red Blood Cells 2.75 10^6/uL (4.5-5.90); Red Cell Distribution Width 13.7 % (11.8-14.3); White Blood Cell 4.2 10^3/uL (4.4-10.8)
[2023-07-02 06:47] LABS: Chloride 112 mmol/L (98-107); Potassium 4.4 mmol/L (3.5-5.1); Sodium 139 mmol/L (136-145)
[2023-07-02 06:48] LABS: Anion Gap 5.8 (5-15); Carbon Dioxide 21.2 mmol/L (20-30)
[2023-07-02 06:49] LABS: Calcium 8.3 mg/dL (8.5-10.1)
[2023-07-02 06:53] LABS: BUN/Creatinine Ratio 20.4 (10.0-20.0); Blood Urea Nitrogen 19 mg/dL (9-23); Glucose 103 mg/dL (74-106)
[2023-07-02] MEDS: FLORASTOR (S. BOULARDII) 250 MG CAP PO SCH (10:41)
[2023-07-02] MEDS: levoFLOXacin 500MG 100 ML IV SCH (10:42)
[2023-07-02] MEDS: ASPirin 81 mg TAB PO SCH (10:42)
[2023-07-02] MEDS: DAKINS HALF STR 0.25% (NaHypochlorite) 473 ML TOPICAL SOL TOP SCH (10:43)
[2023-07-02] MEDS: DOCUSATE SOD 100 MG CAP PO PRN (11:00)
[2023-07-02] MEDS ORDERED: ACETAMINOPHEN 650 mg PER 20.3 mL UD PO ONE (17:15)
[2023-07-02 21:08] LABS: Folate (Folic Acid) 14.28 ng/mL (>5.38)
[2023-07-02] MEDS: ATORVASTATIN 20 MG TAB PO SCH (22:00)
[2023-07-02] MEDS: HYDROcodone-ACET 5/325MG TAB PO PRN (23:57)
[2023-07-03] VITALS (7 sets, daily range): BP systolic 101–114; BP diastolic 53–69; PULSE 63–71; RESP 18–22; TEMP 97.6–98.7; O2SAT 94–98
[2023-07-03] MEDS: GABAPENTIN 300 MG CAP PO SCH ×3 (06:02→22:12)
[2023-07-03] MEDS: levoFLOXacin 500MG 100 ML IV SCH (11:14)
[2023-07-03] MEDS: levETIRAcetam 500 MG TAB PO SCH ×2 (11:14→22:12)
[2023-07-03] MEDS: FLORASTOR (S. BOULARDII) 250 MG CAP PO SCH (11:14)
[2023-07-03] MEDS: DOCUSATE SOD 100 MG CAP PO PRN (11:14)
[2023-07-03] MEDS: ASPirin 81 mg TAB PO SCH (11:15)
[2023-07-03] MEDS: DAKINS HALF STR 0.25% (NaHypochlorite) 473 ML TOPICAL SOL TOP SCH (11:15)
[2023-07-03] MEDS: HYDROcodone-ACET 5/325MG TAB PO PRN ×2 (11:18→16:31)
[2023-07-03] MEDS: VANCOMYCIN 1GM/250ML 250 ML IV SCH (13:45)
[2023-07-03] MEDS: ATORVASTATIN 20 MG TAB PO SCH (22:13)
[2023-07-04] MEDS: HYDROcodone-ACET 5/325MG TAB PO PRN ×2 (02:03→10:09)
[2023-07-04 05:15] VITALS: BP 103/52; PULSE 61; RESP 18; TEMP 97.8; O2SAT 92
[2023-07-04] MEDS: GABAPENTIN 300 MG CAP PO SCH (05:59)
[2023-07-04] MEDS: VANCOMYCIN 1GM/250ML 250 ML IV SCH (06:04)
[2023-07-04 08:00] VITALS: PULSE 59; RESP 19; O2SAT 93
[2023-07-04 09:00] VITALS: BP 111/59; PULSE 59; RESP 19; TEMP 98; O2SAT 95
[2023-07-04] MEDS: levoFLOXacin 500MG 100 ML IV SCH (10:09)
[2023-07-04] MEDS: levETIRAcetam 500 MG TAB PO SCH (10:09)
[2023-07-04] MEDS: DOCUSATE SOD 100 MG CAP PO PRN (10:10)
[2023-07-04] MEDS: DAKINS HALF STR 0.25% (NaHypochlorite) 473 ML TOPICAL SOL TOP SCH (10:10)
[2023-07-04] MEDS: FLORASTOR (S. BOULARDII) 250 MG CAP PO SCH (10:11)
[2023-07-04] MEDS: ASPirin 81 mg TAB PO SCH (10:11)
== END 2023-07-04 11:55 | DRG 314 ==
LOC: ER 13:51 → OVERFLOW 18:12 → WEST WING 21:35
PROVIDERS: ADMIT Internal Medicine
PROC: 0Y6Q0Z3 Detachment at Left 1st Toe, Low, Open Approach (ICD-10-PCS; principal; 2023-06-30 12:06)
PROC: 0JBR0ZZ Excision of Left Foot Subcutaneous Tissue and Fascia, Open Approach (ICD-10-PCS; 2023-06-30 12:06)
DX: E11.621 Type 2 diabetes mellitus with foot ulcer (principal); M86.172 Other acute osteomyelitis, left ankle and foot; E11.51 Type 2 diabetes mellitus with diabetic peripheral angiopathy without gangrene; L03.116 Cellulitis of left lower limb; J44.1 Chronic obstructive pulmonary disease with (acute) exacerbation; G40.209 Localization-related (focal) (partial) symptomatic epilepsy and epileptic syndromes with complex partial seizures, not intractable, without status epilepticus; L97.529 Non-pressure chronic ulcer of other part of left foot with unspecified severity; D64.9 Anemia, unspecified; E11.42 Type 2 diabetes mellitus with diabetic polyneuropathy; E11.69 Type 2 diabetes mellitus with other specified complication; M86.672 Other chronic osteomyelitis, left ankle and foot; I10 Essential (primary) hypertension; F17.210 Nicotine dependence, cigarettes, uncomplicated; I25.10 Atherosclerotic heart disease of native coronary artery without angina pectoris; Z79.82 Long term (current) use of aspirin; I25.2 Old myocardial infarction; Z79.02 Long term (current) use of antithrombotics/antiplatelets; Z79.899 Other long term (current) drug therapy; Z82.49 Family history of ischemic heart disease and other diseases of the circulatory system; Z91.018 Allergy to other foods; E11.65 Type 2 diabetes mellitus with hyperglycemia
CPT/HCPCS: 36415; 70450; 71045; 73718; 80048; 80053; 80202; 81001; 82565; 82607; 82746; 84443; 85025; 85610; 85730; 86850; 86900; 86901; 87070; 87075; 87081; 87205; 93005; 93306; 97163; G0378; J0692; J1885; J1956; J2001; J2250; J2405; J2704; J3490; J7060

== ENCOUNTER → 2023-08-30 | Outpatient (CLI) | payer MEDICARE, MEDICAID ==
[~2023-08-30] MED LIST changes: -CLIN300C70 PO; -DOX100T PO; -LISI10TA34 PO
[2023-08-30 14:30] LABS: Basophils # (auto) 0 10 ^3/uL (0-0.2); Basophils % (auto) 0.6 % (0.0-2.0); Eosinophils # (auto) 0.1 10 ^3/uL (0-0.8); Eosinophils % (auto) 1.6 % (0.0-7.0); Hematocrit 39.8 % (41.0-53.0); Hemoglobin 13.4 g/dL (13.5-17.5); Lymphocytes # (auto) 1.9 10 ^3/uL (0.4-5.4); Lymphocytes % (auto) 28.6 % (10.0-50.0); Mean Corpuscular Hemoglobin 32.1 pg (28.0-32.0); Mean Corpuscular Hgb Conc. 33.8 g/dL (32.0-36.0); Mean Corpuscular Volume 95.1 fL (80.0-100.0); Monocytes # (auto) 0.5 10 ^3/uL (0-1.3); Monocytes % (auto) 8.1 % (0.0-12.0); Neutrophils % (auto) 61.1 % (37.0-80.0); Red Blood Cells 4.18 10^6/uL (4.5-5.90); Red Cell Distribution Width 13.6 % (11.8-14.3); White Blood Cell 6.5 10^3/uL (4.4-10.8)
[2023-08-30 15:06] LABS: Erythrocyte Sedimentation Rate 21 mm/hr (0-20)
[2023-08-30 15:08] LABS: Alanine Aminotransferase 13 U/L (7-40); Albumin 4.5 g/dL (3.2-4.8); Alkaline Phosphatase 117 U/L (46-116); Anion Gap 5 (5-15); Aspartate Aminotransferase 16 U/L (13-40); BUN/Creatinine Ratio 12.7 (10.0-20.0); Bilirubin, Total 0.5 mg/dL (0.2-1.0); Blood Urea Nitrogen 13 mg/dL (9-23); Calcium 9.7 mg/dL (8.7-10.4); Carbon Dioxide 28 mmol/L (20-30); Chloride 106 mmol/L (98-107); Glucose 88 mg/dL (74-106); Potassium 4.2 mmol/L (3.5-5.1); Sodium 139 mmol/L (136-145); Total Protein 7.1 g/dL (5.7-8.2)
== END | disposition home or self-care (01) ==
LOC: LAB 13:52
PROVIDERS: ATTEND Internal Medicine
DX: E78.5 Hyperlipidemia, unspecified (principal); I73.9 Peripheral vascular disease, unspecified; R56.9 Unspecified convulsions
CPT/HCPCS: 36415; 80053; 83036; 85025; 85652

== ENCOUNTER 2024-10-05 18:52 | Inpatient (IN) | payer OTHER, MEDICAID ==
[~2024-10-05] VITALS: Ht 195.6 cm; Wt 71.5 kg
--- NOTE | 2024-10-05 19:49 | ED.PDOC ---
History of Present Illness(SKN HPI Comments 66 y.o male presents to the ED for an evaluation of a wound check. Patient reports having his left greater toe amputated 2 months ago s/p infection, no diabetes history. Patient reports x 1 month he's been having pain with some swelling, was placed on Cipro and ASA but has no change or pain relief. Patient was sent in by Brand Marketing Manager Cruz Hooker for preop evaluation today and to be admitted for further care. Patient denies any fever, chills, or wound bleeding. He reports a medical history of seizures, RI x2, neuropathy, and COPD. Time Seen by MD: 19:40 Primary Care Provider: SHERRY History of Present Illness: Nurses Notes, Medications, Allergies Allergies: Coded Allergies: No Known Drug Allergy (Verified Allergy, Unknown, 10/05/24) [place] (Verified Adverse Reaction, Severe, 04/12/20) Uncoded Allergies: NO DRUG ALLERGIES (Allergy, Unknown, 06/29/23) peach fruit (Adverse Reaction, Severe, 04/12/20) Home Meds Active Scripts Acetaminophen (Tylenol Extra Strength) 500 Mg Tab, 500 MG PO TID for 10 Days, #30 TAB Prov:ALISE MADERA DO 05/04/23 Reported Medications Albuterol Sulfate (Proair Respiclick) 108 Mcg/Act Aer, MCG IN, AER 12/26/21 Pravastatin Sodium (PRAVACHOL TABLET) 20 Mg Tb, 10 MG PO DAILY, TAB 12/26/21 Gabapentin (Gabapentin) 300 Mg Cap, 300 MG PO TID for 30 Days, MG 12/26/21 Levetiracetam (Keppra) 500 Mg Tab, 500 MG PO TID for 30 Days, MG 12/26/21 Information Source: Patient Mode of Arrival: Wheelchair Severity: Moderate Timing: Months (1) Duration: Since onset Location: Foot (left ) Mechanism: Preceding Wound Object: None Wound Type: Unknown Tetanus: UTD Associated Signs and Symptoms: Redness, Swelling, Pain Past Medical History PAST MEDICAL HISTORY: COPD, HTN, RI, Seizures Past Medical History (Other): Recent history of left foot cellulitic wounds that led to toe amputation Surgical History (Other): left greater toe amputation Family History Family History: Reviewed,noncontributory to illness Social History Smoker: Cigarettes, Less Than 1 Pack/Day Alcohol: Denies ETOH Use Drugs: Denies Drug Use Lives In: Home Constitutional: reports: weakness; denies: chills, diaphoresis, fatigue, fever, malaise, sweats, others EENTM: denies: blurred vision, double vision, ear bleeding, ear discharge, ear drainage, ear pain, ear ringing, eye pain, eye redness, hearing loss, mouth pain, mouth swelling, nasal discharge, nose bleeding, nose congestion, nose pain, photophobia, tearing, throat pain, throat swelling, voice changes, others Respiratory: denies: cough, hemoptysis, orthopnea, SOB at rest, shortness of breath, SOB with excertion, stridor, wheezing, others Cardiovascular: denies: chest pain, dizzy spells, diaphoresis, Dyspnea on exertion, edema, irregular heart beat, left arm pain, lightheadedness, palpitations, PND, syncope, others Gastrointestinal: denies: abdomen distended, abdominal pain, blood streaked bowels, constipated, diarrhea, dysphagia, difficulty swallowing, hematemesis, melena, nausea, poor appetite, poor fluid intake, rectal bleeding, rectal pain, vomiting, others Genitourinary: denies: burning, dysuria, flank pain, frequency, hematuria, incontinence, penile discharge, penile sore, pain, testicle pain, testicle swelling, urgency, others Neurological: denies: dizziness, fainting, headache, left sided numbness, left sided weakness, numbness, paresthesia, pre-existing deficit, right sided numbness, right sided weakness, seizure, speech problems, tingling, tremors, weakness, others Musculoskeletal: denies: back pain, gout, joint pain, joint swelling, muscle pain, muscle stiffness, neck pain, others Integumetry: reports: wounds (left foot ); denies: bruises, change in color, change in hair/nails, dryness, laceration, lesions, lumps, rash, others Allergic/Immunocompromised: denies: Difficulty Healing, Frequent Infections, Hives, Itching, others Hematologic/Lymphatic: denies: anemia, blood clots, easy bleeding, easy bruising, swollen glands, others Endocrine: denies: excessive hunger, excessive sweating, excessive thirst, excessive urination, flushing, intolerance to cold, intolerance to heat, unexplained weight gain, unexplained weight loss, others Psychiatric: denies: anxiety, bipolar disorder, depression, hopeless, panic disorder, schizophrenia, sleepless, suicidal, others All Other Systems: Reviewed and Negative Physical Exam Exam Comments Patient is dirty and not well kempt at time of evaluation. Patient was mildly histrionic. General Appearance: Moderate Distress (Due to foot pain concerns), Normal HEENT: Normal ENT Inspection, Pharynx Normal, TMs Normal Neck: Full Range of Motion, Non-Tender, Normal, Normal Inspection Respiratory: Chest Non-Tender, Lungs Clear, No Accessory Muscle Use, No Respiratory Distress, Normal Breath Sounds Cardiovascular: No Edema, No JVD, No Murmur, No Gallop, Normal Peripheral Pulses, Regular Rate/Rhythm Breast Exam: Deferred Gastrointestinal: No Organomegaly, Non Tender, No Pulsatile Mass, Normal Bowel Sounds, Soft Genitalia: Deferred Pelvic: Deferred Rectal: Deferred Extremities: Other (Patient displays an angry left foot. Left great toe amputation is confirmed. Foot is erythematous and edematous. Possible osteomyelitis.) Neurologic: Alert, major general II-XII nml as Tested, No Motor Deficits, Normal Affect, Normal Mood, No Sensory Deficits Cerebellar Function: Normal Reflexes: Normal Skin: Dry, Normal Color, Warm Lymphatic: No Adenopathy Was a procedure done? Was a procedure done?: No Differential Diagnosis (INTG) Differential Diagnosis: Cellulitis, Osteomyelitis, Other (Foot wound, electrolyte abnormality, sepsis) X-Ray, Labs, Meds, VS Vital Signs Date Time Temp Pulse Resp B/P (MAP) Pulse Ox O2 Delivery O2 Flow Rate FiO2 10/05/24 22:01 98.8 85 15 132/70 (90) 95 98.8 10/05/24 21:57 85 14 96 Room Air* 0 21 10/05/24 19:42 98.0 70 18 108/63 (78) 98 Lab Test 10/05/24 21:20 10/05/24 20:08 Range/Units Lactic Acid Level 1.7 2.1 *H 0.4-2.0 mmol/L Troponin I High Sensitivity < 3 L < 3 L </=54 ng/L White Blood Count 5.9 4.4-10.8 10^3/uL Red Blood Count 4.17 L 4.5-5.90 10^6/uL Hemoglobin 14.2 13.5-17.5 g/dL Hematocrit 40.8 L 41.0-53.0 % Mean Corpuscular Volume 97.7 80.0-100.0 fL Mean Corpuscular Hemoglobin 34.1 H 28.0-32.0 pg Mean Corpuscular Hemoglobin Concent 34.8 32.0-36.0 g/dL Red Cell Distribution Width 13.9 11.8-14.3 % Platelet Count 226 140-450 10^3/uL Mean Platelet Volume 7.8 6.9-10.8 fL Neutrophils (%) (Auto) 60.8 37.0-80.0 % Lymphocytes (%) (Auto) 28.4 10.0-50.0 % Monocytes (%) (Auto) 8.9 0.0-12.0 % Eosinophils (%) (Auto) 1.3 0.0-7.0 % Basophils (%) (Auto) 0.6 0.0-2.0 % Neutrophils # (Auto) 3.6 1.6-8.6 10 ^3/uL Lymphocytes # (Auto) 1.7 0.4-5.4 10 ^3/uL Monocytes # (Auto) 0.5 0-1.3 10 ^3/uL Eosinophils # (Auto) 0.1 0-0.8 10 ^3/uL Basophils # (Auto) 0 0-0.2 10 ^3/uL Nucleated Red Blood Cells 0.1 % Sodium Level 145 136-145 mmol/L Potassium Level 4.5 3.5-5.1 mmol/L Chloride Level 110 H 98-107 mmol/L Carbon Dioxide Level 27 20-31 mmol/L Anion Gap 8 5-15 Blood Urea Nitrogen 12 9-23 mg/dL Creatinine 1.17 0.700-1.30 mg/dL Glomerular Filtration Rate Calc 69 >90 mL/min BUN/Creatinine Ratio 10.3 10.0-20.0 Serum Glucose 88 74-106 mg/dL Calcium Level 10.1 8.7-10.4 mg/dL Total Bilirubin 0.3 0.2-1.0 mg/dL Aspartate Amino Transferase (AST) 20 13-40 U/L Alanine Aminotransferase (ALT) 17 7-40 U/L Alkaline Phosphatase 100 46-116 U/L B-Type Natriuretic Peptide 56.28 0-100 pg/mL Total Protein 6.7 5.7-8.2 g/dL Albumin 4.7 3.2-4.8 g/dL Lipase 58 H 12-53 U/L Current Medications Medications (Trade) Dose Ordered Sig/Sobeida Route Start Time Stop Time Status Last Admin Acetaminophen/ Hydrocodone Bitart ([place] 10/325MG Tab) 1 tab ONCE ONCE PO 10/05/24 19:45 10/05/24 19:46 DC 10/05/24 21:45 Sodium Chloride 1,000 ml @ 200 mls/hr Q5H ONCE IV 10/05/24 21:30 10/06/24 02:29 10/05/24 21:57 X-Ray, Labs, Meds, VS Comment All studies performed in the ED were evaluated by me personally. Imaging studies were unremarkable for any osteomyelitis formation, her laboratories were only truly remarkable for an elevated lipase. Patient will be admitted for management of his pancreatitis event as well as surgical evaluation by his lock setter. Time of 1ST Reevaluation: 22:32 Reevaluation 1ST: Improved Consultation: PCP, Surgery, Other (Podiatry) Patient Education/Counseling: Diagnosis, Treatment, Prognosis Family Education/Counseling: Diagnosis, Treatment, No Family Present Departure 1 Departure Time of Disposition: 22:33 Impression: Primary Impression: Pancreatitis Additional Impression: Foot infection Disposition: ADMITTED INPATIENT Condition: Stable Discharged With: Self Critical Care Note Critical Care Time?: No Stability Stability form required: No I personally scribed for CHINEDU PERALTA PAC ([email or web address]) on 10/05/24 at 19:49. Electronically submitted by Kalie Miller ([facility]). I personally scribed for CHINEDU PERALTA PAC ([email or web address]) on 10/05/24 at 19:58. Electronically submitted by Kalie Miller ([facility]). CHINEDU PERALTA PAC Oct 05, 2024 19:49
[2024-10-05 20:24] LABS: Basophils # (auto) 0 10 ^3/uL (0-0.2); Basophils % (auto) 0.6 % (0.0-2.0); Eosinophils # (auto) 0.1 10 ^3/uL (0-0.8); Eosinophils % (auto) 1.3 % (0.0-7.0); Hematocrit 40.8 % (41.0-53.0); Hemoglobin 14.2 g/dL (13.5-17.5); Lymphocytes # (auto) 1.7 10 ^3/uL (0.4-5.4); Lymphocytes % (auto) 28.4 % (10.0-50.0); Mean Corpuscular Hemoglobin 34.1 pg (28.0-32.0); Mean Corpuscular Hgb Conc. 34.8 g/dL (32.0-36.0); Mean Corpuscular Volume 97.7 fL (80.0-100.0); Monocytes # (auto) 0.5 10 ^3/uL (0-1.3); Monocytes % (auto) 8.9 % (0.0-12.0); Neutrophils # (auto) 3.6 10 ^3/uL (1.6-8.6); Neutrophils % (auto) 60.8 % (37.0-80.0); Nucleated Red Blood Cells % 0.1 %; Platelet Count (auto) 226 10^3/uL (140-450); Red Blood Cells 4.17 10^6/uL (4.5-5.90); Red Cell Distribution Width 13.9 % (11.8-14.3); White Blood Cell 5.9 10^3/uL (4.4-10.8)
[2024-10-05 20:49] LABS: Alanine Aminotransferase 17 U/L (7-40); Albumin 4.7 g/dL (3.2-4.8); Alkaline Phosphatase 100 U/L (46-116); Anion Gap 8 (5-15); Aspartate Aminotransferase 20 U/L (13-40); BUN/Creatinine Ratio 10.3 (10.0-20.0); Bilirubin, Total 0.3 mg/dL (0.2-1.0); Blood Urea Nitrogen 12 mg/dL (9-23); Calcium 10.1 mg/dL (8.7-10.4); Carbon Dioxide 27 mmol/L (20-31); Glucose 88 mg/dL (74-106); Potassium 4.5 mmol/L (3.5-5.1); Sodium 145 mmol/L (136-145); Total Protein 6.7 g/dL (5.7-8.2)
--- NOTE | 2024-10-05 21:00 | DVH ---
EXAM: CT CT L FOOT WO CONTRAST INDICATION: Rule out osteomyelitis EXAM DATE: 10/05/2024 08:09 PM COMPARISON: MRI MRI L FOOT WO CONTRAST on DOS: 06/27/23, MRI MRI L FOOT WO CONTRAST on DOS: 05/26/23, C T CT L FOOT WO CONTRAST on DOS: 05/03/23 TECHNIQUE: Multiple axial CT images of the left foot were obtained using bone algorithm. Axial and co emily reformatting was done. Bone and soft tissue windows were reviewed. Radiation Dose Information: CT Dose: CTDI volume is 7.75 mGy. Dose-length product is 155.69 mGy*cm Findings: Limited evaluation given noncontrast technique. There is no evidence of an acute fracture, dislocation, erosions, blastic, or lytic lesions. Transmet atarsectomy of the first metatarsal. No radiopaque foreign bodies. No joint effusion. Mild diffuse soft tissue edema. No definite focal fluid collections. Impression: 1. Limited evaluation given noncontrast technique. 2. No acute osseous abnormalities. No erosions. 3. Mild diffuse soft tissue edema. No focal fluid collections.
[2024-10-05 21:06] LABS: Chloride 110 mmol/L (98-107); Lipase 58 U/L (12-53)
[2024-10-05 21:10] LABS: Lactic Acid w/Reflex 2.1 mmol/L (0.4-2.0)
[2024-10-05] MEDS: HYDROcodone-ACET 10/325MG TAB PO ONE (21:45)
[2024-10-05 21:57] VITALS: PULSE 85; RESP 14; O2SAT 96
[2024-10-05] MEDS: SODIUM CHLORIDE 0.9% 1,000 ML IV ONE (21:57)
[2024-10-05 23:10] LABS: Urine Bacteria None Seen /hpf (None Seen); Urine WBC None Seen /hpf (0 - 3)
[2024-10-05 23:24] LABS: Urine Blood Negative /uL (Negative); Urine Clarity Clear (Clear); Urine Color Yellow (Yellow); Urine Protein, UAD Negative (Negative); Urine Urobilinogen 2 mg/dL (Negative)
[2024-10-06] VITALS (7 sets, daily range): BP systolic 98–168; BP diastolic 54–82; PULSE 53–89; RESP 16–20; TEMP 97.1–98.3; O2SAT 91–98
--- NOTE | 2024-10-06 01:28 | DVHHP2 ---
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 patient has stated continuous issues with pain had his left great toe amputated for suspected osteo infection which occurred 2 months ago patient states that for the last 1 month he has had continued pain swelling with no relief patient states he follows with For cannabis and patient was requested to be admitted to the hospital for further evaluation and management Cardiovascular: HTN Pulmonary: COPD Review of Systems Constitutional: Yes: Fever, Weakness; No: Chills, Sweats, Malaise, Other Eyes: No: Pain, Vision change, Conjunctivae inflammation, Eyelid inflammation, Other, Redness Respiratory: No: Cough, Dry, Shortness of breath, SOB with excertion, Wheezing, Hemoptysis, Pleuritic Pain, Sputum, Wheezing, Other Cardiovascular: No: Chest Pain, Palpitations, Orthopnea, Paroxysmal Noc. Dyspnea, Edema, Lt Headedness, Other Gastrointestinal: No: Nausea, Vomiting, Abdominal Pain, Diarrhea, Constipation, Melena, Hematochezia, Other Genitourinary: No Dysuria, No Frequency, No Incontinence, No Hematuria, No R etention, No Other Musculoskeletal: foot pain; No: other, neck pain, shoulder pain, arm pain, back pain, hand pain, leg pain Skin: Rash, Lesions Neurological: No: Weakness, Numbness, Incoordination, Change in speech, Confusion, Seizures, Other Allergies: Coded Allergies: No Known Drug Allergy (Verified Allergy, Unknown, 10/05/24) [place] (Verified Adverse Reaction, Severe, 04/12/20) Uncoded Allergies: NO DRUG ALLERGIES (Allergy, Unknown, 06/29/23) peach fruit (Adverse Reaction, Severe, 04/12/20) Exam Vital Signs Vital Signs Date Time Temp Pulse Resp B/P (MAP) Pulse Ox O2 Delivery O2 Flow Rate FiO2 10/05/24 22:01 98.8 85 15 132/70 (90) 95 98.8 10/05/24 21:57 Room Air* 0 21 General Appearance: Alert, Oriented X3, moderate distress HEENT: PERRLA, EOMI Respiratory: Clear to auscultation, Normal air movement Cardiovascular: Regular rate, Normal S1, Normal S2 Abdominal: Normal bowel sounds, No tenderness Extremities: No clubbing, No cyanosis, No edema (Lower extremity swelling), No tenderness/swelling (Swelling and tenderness) Skin: No rashes Neuro: Normal gait, Normal speech, Strength at 5/5 X4 ext Psych/Mental Status: Mood NL Labs/Xrays Labs Test 10/05/24 22:48 10/05/24 21:20 10/05/24 20:08 Range/Units Urine Color Yellow Yellow Urine Clarity Clear Clear Urine pH 6.0 5.0-9.0 Urine Specific [place] 1.020 1.001-1.035 Urine Protein Negative Negative Urine Ketones Negative Negative Urine Blood Negative Negative /uL Urine Nitrite Negative Negative Urine Bilirubin Negative Negative Urine Urobilinogen 2 H Negative mg/dL Urine Leukocyte Esterase Negative Negative /uL Urine RBC 3 0 - 3 /hpf Urine WBC None seen 0 - 3 /hpf Urine Squamous Epithelial Cells None seen <5 /hpf Urine Bacteria None seen None Seen /hpf Urine Glucose Normal Normal mg/dL Lactic Acid Level 1.7 0.4-2.0 mmol/L Troponin I High Sensitivity < 3 L </=54 ng/L White Blood Count 5.9 4.4-10.8 10^3/uL Red Blood Count 4.17 L 4.5-5.90 10^6/uL Hemoglobin 14.2 13.5-17.5 g/dL Hematocrit 40.8 L 41.0-53.0 % Mean Corpuscular Volume 97.7 80.0-100.0 fL Mean Corpuscular Hemoglobin 34.1 H 28.0-32.0 pg Mean Corpuscular Hemoglobin Concent 34.8 32.0-36.0 g/dL Red Cell Distribution Width 13.9 11.8-14.3 % Platelet Count 226 140-450 10^3/uL Mean Platelet Volume 7.8 6.9-10.8 fL Neutrophils (%) (Auto) 60.8 37.0-80.0 % Lymphocytes (%) (Auto) 28.4 10.0-50.0 % Monocytes (%) (Auto) 8.9 0.0-12.0 % Eosinophils (%) (Auto) 1.3 0.0-7.0 % Basophils (%) (Auto) 0.6 0.0-2.0 % Neutrophils # (Auto) 3.6 1.6-8.6 10 ^3/uL Lymphocytes # (Auto) 1.7 0.4-5.4 10 ^3/uL Monocytes # (Auto) 0.5 0-1.3 10 ^3/uL Eosinophils # (Auto) 0.1 0-0.8 10 ^3/uL Basophils # (Auto) 0 0-0.2 10 ^3/uL Nucleated Red Blood Cells 0.1 % Sodium Level 145 136-145 mmol/L Potassium Level 4.5 3.5-5.1 mmol/L Chloride Level 110 H 98-107 mmol/L Carbon Dioxide Level 27 20-31 mmol/L Anion Gap 8 5-15 Blood Urea Nitrogen 12 9-23 mg/dL Creatinine 1.17 0.700-1.30 mg/dL Glomerular Filtration Rate Calc 69 >90 mL/min BUN/Creatinine Ratio 10.3 10.0-20.0 Serum Glucose 88 74-106 mg/dL Calcium Level 10.1 8.7-10.4 mg/dL Total Bilirubin 0.3 0.2-1.0 mg/dL Aspartate Amino Transferase (AST) 20 13-40 U/L Alanine Aminotransferase (ALT) 17 7-40 U/L Alkaline Phosphatase 100 46-116 U/L B-Type Natriuretic Peptide 56.28 0-100 pg/mL Total Protein 6.7 5.7-8.2 g/dL Albumin 4.7 3.2-4.8 g/dL Lipase 58 H 12-53 U/L Assessment/Plan Assessment/Plan Admit to [facility] Cellulitis of the foot Status post history of amputation of the toe Chronic wounds secondary to status post surgical amputation Podiatry consulted Recommended by Podiatry to be seen inpatient for further evaluation and possible resection IV antibiotics Vanco Zosyn for coverage P.r.n. medications for pain management highlight history of COPD, history of ND, history of seizures We will continue with home medications as these issues are currently stable Plan discussed with: Patient My Orders Orders - RM MARTINES MD Procedure Category Date Status Time Vancomycin Per PHA 10/06/24 Transmitted Pharmacy 01:30 Zosyn Extended PHA 10/06/24 Transmitted Infusion 01:30 Admit ADMIT 10/06/24 Transmitted 01:17 Code Status CODE 10/06/24 Transmitted 01:17 Vital Signs [facility] 10/06/24 In Process 01:17 Review Orders With STEPHANIE 10/06/24 In Process Adm. 01:17 Regular Diet DIET 10/06/24 Transmitted Breakfast Sodium Chloride 0.9% PHA 10/06/24 Transmitted 01:30 Lorazepam Tablet PHA 10/06/24 Transmitted (Ativan Tablet) 01:30 Alum & Mag PHA 10/06/24 Transmitted Hydrox-Simethicone 01:30 Docusate Sodium PHA 10/06/24 Transmitted Capsule (Colace 01:30 Acetaminophen Tablet PHA 10/06/24 Transmitted (Tylenol Tablet) 01:30 Temazepam (Restoril) PHA 10/06/24 Transmitted 01:30 Notify Md Of Changes [facility] 10/06/24 In Process From Base 01:17 Advance Directive STEPHANIE 10/06/24 In Process 01:17 Basic Metabolic Panel LAB 10/06/24 Transmitted 04:00 Urinalysis LAB 10/06/24 Transmitted 01:17 Complete Blood Count LAB 10/06/24 Transmitted 04:00 Patient Condition ORDERS 10/06/24 Transmitted 01:17 Allergies [facility] 10/06/24 In Process 01:17 Hydrocodone-Acet PHA 10/06/24 Transmitted 5/325mg Tab ([place] 01:30 Ondansetron Hcl PHA 10/06/24 Transmitted (Zofran) 01:30 Morphine 2mg Iv Q4hprn PHA 10/06/24 Transmitted 01:30 Notify Md Of Changes [facility] 10/06/24 In Process From Base 01:17 Oxygen By Nasal RT 10/06/24 Transmitted Cannula 01:17 *Podiatry Consult Dr. DIETZ 10/06/24 Verified [place] 01:21 Problem List: (1) Foot infection (2) Cellulitis (3) Foot ulceration (4) Peripheral vascular disease of extremity with claudication (5) Seizure Date of Service: Oct 06, 2024 Billing Provider: RM MARTINES MD Common Visit Codes: [id number] INP/OBS CARE (HIGH) RM MARTINES MD Oct 06, 2024 01:28
[2024-10-06] MEDS ORDERED: ONDANSETRON HCL 4 MG/2 ML VIAL IV PRN (01:30)
[2024-10-06] MEDS ORDERED: HYDROcodone-ACET 5/325MG TAB PO PRN (01:30)
[2024-10-06] MEDS ORDERED: VANCOMYCIN PER PHARMACY 0 MG IV SCH (01:30)
[2024-10-06] MEDS ORDERED: MAALOX PLUS or MAALOX 30 ML PO PRN (01:30)
[2024-10-06] MEDS: SODIUM CHLORIDE 0.9% 1,000 ML IV SCH (01:30)
[2024-10-06] MEDS: MORPHINE SULFATE INJ 2 MG/ml SYRG IV PRN (02:24)
[2024-10-06] MEDS: VANCOMYCIN 1GM/250ML KIT 250 ML IV SCH ×2 (03:16→16:21)
[2024-10-06] MEDS: PIPERACILLIN-TAZOB 3.375GM 100 ML IV SCH ×2 (05:37→13:48)
[2024-10-06 06:36] LABS: Basophils # (auto) 0 10 ^3/uL (0-0.2); Basophils % (auto) 0.5 % (0.0-2.0); Eosinophils # (auto) 0 10 ^3/uL (0-0.8); Hematocrit 40.7 % (41.0-53.0); Lymphocytes # (auto) 1.3 10 ^3/uL (0.4-5.4); Lymphocytes % (auto) 31.5 % (10.0-50.0); Mean Corpuscular Hemoglobin 33.6 pg (28.0-32.0); Mean Corpuscular Hgb Conc. 34.3 g/dL (32.0-36.0); Mean Corpuscular Volume 97.9 fL (80.0-100.0); Monocytes # (auto) 0.1 10 ^3/uL (0-1.3); Monocytes % (auto) 1.9 % (0.0-12.0); Neutrophils # (auto) 2.6 10 ^3/uL (1.6-8.6); Neutrophils % (auto) 65.1 % (37.0-80.0); Platelet Count (auto) 225 10^3/uL (140-450); Red Blood Cells 4.16 10^6/uL (4.5-5.90); Red Cell Distribution Width 13.7 % (11.8-14.3)
[2024-10-06 06:46] LABS: Anion Gap 6 (5-15); Carbon Dioxide 28 mmol/L (20-31); Potassium 4.4 mmol/L (3.5-5.1); Sodium 145 mmol/L (136-145)
[2024-10-06 06:49] LABS: Chloride 111 mmol/L (98-107)
[2024-10-06 06:52] LABS: BUN/Creatinine Ratio 14.7 (10.0-20.0); Blood Urea Nitrogen 17 mg/dL (9-23); Glucose 86 mg/dL (74-106)
[2024-10-06] MEDS ORDERED: CIPR500T4 PO (08:32)
[2024-10-06] MEDS ORDERED: LEVE500T40 PO (08:32)
[2024-10-06] MEDS ORDERED: ASPI-543 PO (08:32)
[2024-10-06] MEDS ORDERED: LISI10TA34 PO (08:32)
[2024-10-06] MEDS ORDERED: GABA-339 PO (08:32)
--- NOTE | 2024-10-06 12:52 | DVHPN2 ---
Subjective 66-year-old male with a history of chronic wound on his left foot who sees Dr. Hooker as outpatient, he was sent by him to be admitted for further evaluation and treatment He has a dressing in his left foot He is status post amputation 2 years ago Changes from previous H/P or p: Changes Eyes: No Pain, No Vision change, No Conjunctivae inflammation, No Eyelid inflammation, No Other, No Redness Cardiovascular: No Chest Pain, No Palpitations, No Orthopnea, No Paroxysmal Noc. Dyspnea, No Edema, No Lt Headedness, No Other Respiratory: No Cough, No Dry, No Shortness of breath, No SOB with excertion, No Wheezing, No Hemoptysis, No Pleuritic Pain, No Sputum, No Other Gastrointestinal: No Nausea, No Vomiting, No Abdominal Pain, No Diarrhea, No Constipation, No Melena, No Hematochezia, No Other Genitourinary: No Dysuria, No Frequency, No Incontinence, No Hematuria, No Retention, No Other Musculoskeletal: No other, No neck pain, No shoulder pain, No arm pain, No back pain, No hand pain, No leg pain; foot pain Skin: Rash, Lesions Objective Vitals Vital Signs Date Time Temp Pulse Resp B/P (MAP) Pulse Ox O2 Delivery O2 Flow Rate FiO2 10/06/24 09:14 70 19 168/76 10/06/24 09:00 98.3 96 98.3 10/06/24 06:48 Room Air* 0 21 General Appearance: Alert, Oriented X3, Cooperative, No acute distress Lungs: Clear to auscultation, Normal air movement Cardiovascular: Regular rate, Normal S1, Normal S2, No murmurs Abdomen: Normal bowel sounds, Soft, No tenderness Extremities: No edema Medications Current Medications Medications Dose Ordered Sig/Sobeida Route Start Time Stop Time Status Last Admin Dose Admin Vancomycin HCl 0 ml @ 0 mls/hr UD IV 10/06/24 01:30 Sodium Chloride 1,000 ml @ 100 mls/hr Q10H IV 10/06/24 01:30 10/06/24 05:41 100 MLS/HR Lorazepam 0.5 mg Q6HP PRN PO 10/06/24 01:30 Al Hydrox/Mg Hydrox/Simethicone 30 ml Q6HP PRN PO 10/06/24 01:30 Docusate Sodium 100 mg BIDPRN PRN PO 10/06/24 01:30 Acetaminophen 650 mg Q6HP PRN PO 10/06/24 01:30 Temazepam 15 mg QHSP PRN PO 10/06/24 01:30 Acetaminophen/ Hydrocodone Bitart 1 tab Q4HP PRN PO 10/06/24 01:30 Ondansetron HCl 4 mg Q4HP PRN IV 10/06/24 01:30 Morphine Sulfate 2 mg Q4HPRN PRN IV 10/06/24 01:30 10/06/24 09:14 2 MG Piperacillin Sod/ Tazobactam Sod 100 ml @ 100 mls/hr Q8HR IV 10/06/24 14:00 Laboratory Results Laboratory Tests 10/06/24 05:58 Chemistry Test 10/05/24 20:08 10/06/24 05:58 Albumin 4.7 g/dL (3.2-4.8) Calcium Level 10.1 mg/dL (8.7-10.4) 10.0 mg/dL (8.7-10.4) Total Protein 6.7 g/dL (5.7-8.2) Lipid panel Test 10/05/24 20:08 Lipase 58 U/L (12-53) H Cardiac Markers Test 10/05/24 20:08 B-Type Natriuretic Peptide 56.28 pg/mL (0-100) LFT Test 10/05/24 20:08 Alanine Aminotransferase (ALT) 17 U/L (7-40) Alkaline Phosphatase 100 U/L (46-116) Aspartate Amino Transferase (AST) 20 U/L (13-40) Total Bilirubin 0.3 mg/dL (0.2-1.0) Urinalysis Test 10/05/24 22:48 Urine Color Yellow (Yellow) Urine Clarity Clear (Clear) Urine pH 6.0 (5.0-9.0) Urine Specific [place] 1.020 (1.001-1.035) Urine Protein Negative (Negative) Urine Ketones Negative (Negative) Urine Blood Negative /uL (Negative) Urine Nitrite Negative (Negative) Urine Bilirubin Negative (Negative) Urine Urobilinogen 2 mg/dL (Negative) H Urine Leukocyte Esterase Negative /uL (Negative) Urine RBC 3 /hpf (0 - 3) Urine WBC None seen /hpf (0 - 3) Urine Squamous Epithelial Cells None seen /hpf (<5) Urine Bacteria None seen /hpf (None Seen) Urine Glucose Normal mg/dL (Normal) Assessment/Plan Assessment/Plan Acute cellulitis of the left foot Nonhealing wound of the left foot 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 Lam for possible angiography of the lower extremity Consult Dr. Hooker Wound culture Code Advance directives discussed for 18 minutes Plan discussed with: Patient Date of Service: Oct 06, 2024 Billing Provider: PALMER BURNS MD Common Visit Codes: [id number] INP/OBS CARE(HIGH) Secondary Visit Codes: [id number] CARE PLAN 30 MINUTES PALMER BURNS MD Oct 06, 2024 12:52
--- NOTE | 2024-10-06 14:08 | DVH ---
Bilateral Lower Extremity Arterial Duplex Date: 10/06/2024 11:50 AM Clinical History: R/O PVD Comparison: US BILAT LOW EXT ART DUPLEX on DOS: 05/25/23 Findings: Duplex Doppler evaluation including color Doppler and spectral/pulsed waveform analysis of the lower extremity arteries was performed. RIGHT: Multifocal tandem atherosclerotic plaque noted throughout the lower extremity arteries. Peak systolic velocities are as follows: [employer] 286 cm/s Deep femoral 150 cm/s SFA proximal 102 cm/s SFA mid-portion 0 cm/s SFA distal 182 cm/s Popliteal 46 cm/s Posterior tibial 28 cm/s [at proximal, mid, and distal calf levels, respectively] The waveforms are monophasic with no diastolic flow. LEFT: Multifocal tandem atherosclerotic plaque noted throughout the lower extremity arteries. Peak systolic velocities are as follows: [employer] 149 cm/s Deep femoral 98 cm/s SFA proximal 13 cm/s SFA mid-portion 0 cm/s SFA distal 10 cm/s Popliteal 69 cm/s Posterior tibial 18 cm/s [at proximal, mid, and distal calf levels, respectively] The waveforms are monophasic with diastolic flow. REFERENCE VALUES, [facility] ([facility]) vascular Imaging Lab Criteria: Peak systolic velocity ranges (in cm/sec) are as follows: <150 cm/s - <20 % stenosis 150-200 cm/s - 20-49% stenosis 200-300 cm/s - 50-75% stenosis >300 cm/s -> 75% stenosis IMPRESSION: Advanced bilateral PAD with occlusion RIGHT MID SFA with recon at distal SFA Occluded LEFT MID SFA and DPA.
[2024-10-06] MEDS: GABAPENTIN 300 MG CAP PO SCH (20:48)
[2024-10-06] MEDS: levETIRAcetam 500 MG TAB PO SCH (21:54)
[2024-10-06] MEDS: LORazepam 0.5 MG TAB PO PRN (21:54)
[2024-10-07 01:00] VITALS: BP 138/65; PULSE 73; RESP 18; TEMP 99; O2SAT 93
[2024-10-07 05:00] VITALS: BP 116/56; PULSE 67; RESP 18; TEMP 99.1; O2SAT 94
[2024-10-07 09:00] VITALS: BP 129/59; PULSE 68; RESP 18; TEMP 98.3; O2SAT 92
--- NOTE | 2024-10-07 10:28 | DVHPN2 ---
Subjective c/o pain in foot Changes from previous H/P or p: Changes Eyes: No Pain, No Vision change, No Conjunctivae inflammation, No Eyelid inflammation, No Other, No Redness Cardiovascular: No Chest Pain, No Palpitations, No Orthopnea, No Paroxysmal Noc. Dyspnea, No Edema, No Lt Headedness, No Other Respiratory: No Cough, No Dry, No Shortness of breath, No SOB with excertion, No Wheezing, No Hemoptysis, No Pleuritic Pain, No Sputum, No Other Gastrointestinal: No Nausea, No Vomiting, No Abdominal Pain, No Diarrhea, No Constipation, No Melena, No Hematochezia, No Other Genitourinary: No Dysuria, No Frequency, No Incontinence, No Hematuria, No Retention, No Other Musculoskeletal: No other, No neck pain, No shoulder pain, No arm pain, No back pain, No hand pain, No leg pain; foot pain Skin: Rash, Lesions Objective Vitals Vital Signs Date Time Temp Pulse Resp B/P (MAP) Pulse Ox O2 Delivery O2 Flow Rate FiO2 10/07/24 09:00 98.3 68 18 129/59 (82) 92 98.3 10/06/24 20:00 Room Air* 0 21 Intake/Output Intake and Output 10/07/24 07:00 Intake Total 2105 ml Output Total 402 ml Balance 1703 ml Intake Oral 1230 ml IV Total 875 ml Output Urine Total 402 ml General Appearance: Alert, Oriented X3, Cooperative, No acute distress Lungs: Clear to auscultation, Normal air movement Cardiovascular: Regular rate, Normal S1, Normal S2, No murmurs Abdomen: Normal bowel sounds, Soft, No tenderness Extremities: No edema Medications Current Medications Medications Dose Ordered Sig/Sobeida Route Start Time Stop Time Status Last Admin Dose Admin Vancomycin HCl 0 ml @ 0 mls/hr UD IV 10/06/24 01:30 Lorazepam 0.5 mg Q6HP PRN PO 10/06/24 01:30 10/06/24 21:54 0.5 MG Al Hydrox/Mg Hydrox/Simethicone 30 ml Q6HP PRN PO 10/06/24 01:30 Docusate Sodium 100 mg BIDPRN PRN PO 10/06/24 01:30 Acetaminophen 650 mg Q6HP PRN PO 10/06/24 01:30 Temazepam 15 mg QHSP PRN PO 10/06/24 01:30 Acetaminophen/ Hydrocodone Bitart 1 tab Q4HP PRN PO 10/06/24 01:30 Ondansetron HCl 4 mg Q4HP PRN IV 10/06/24 01:30 Morphine Sulfate 2 mg Q4HPRN PRN IV 10/06/24 01:30 10/06/24 22:40 2 MG Piperacillin Sod/ Tazobactam Sod 100 ml @ 100 mls/hr Q8HR IV 10/06/24 14:00 10/07/24 06:29 100 MLS/HR Vancomycin HCl 250 ml @ 250 mls/hr Q12H IV 10/06/24 16:00 10/07/24 04:38 250 MLS/HR Gabapentin 300 mg BID PO 10/06/24 22:00 Levetiracetam 1,000 mg BID PO 10/06/24 22:00 10/06/24 21:54 1,000 MG Laboratory Results Laboratory Tests 10/06/24 05:58 Urinalysis Test 10/05/24 22:48 Urine Color Yellow (Yellow) Urine Clarity Clear (Clear) Urine pH 6.0 (5.0-9.0) Urine Specific [place] 1.020 (1.001-1.035) Urine Protein Negative (Negative) Urine Ketones Negative (Negative) Urine Blood Negative /uL (Negative) Urine Nitrite Negative (Negative) Urine Bilirubin Negative (Negative) Urine Urobilinogen 2 mg/dL (Negative) H Urine Leukocyte Esterase Negative /uL (Negative) Urine RBC 3 /hpf (0 - 3) Urine WBC None seen /hpf (0 - 3) Urine Squamous Epithelial Cells None seen /hpf (<5) Urine Bacteria None seen /hpf (None Seen) Urine Glucose Normal mg/dL (Normal) Assessment/Plan Assessment/Plan Acute cellulitis of the left foot Nonhealing wound of the left foot 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 Lam for possible angiography of the lower extremity Consult Dr. Hooker Wound culture Code Advance directives discussed for 18 minutes 10/07/24: BP is low: NS IV Resume home meds: Neurontin and Keppra and ASA Wound infection: Continue IV antibiotics PVD: Consult Dr. Lam Podiatry consult Plan discussed with: Patient My Orders Orders - PALMER BURNS MD Procedure Category Date Status Time Consult CONS 10/06/24 Transmitted Vascular/Endovascular 12:49 Wound Culture W/ Gs AGNES 10/06/24 In Process 14:29 *Podiatry Consult CONS 10/06/24 Transmitted Fanous 16:22 * Wound Consult CONS 10/06/24 Transmitted Date of Service: Oct 07, 2024 Billing Provider: PALMER BURNS MD Common Visit Codes: [id number] INP/OBS CARE(HIGH) PALMER BURNS MD Oct 07, 2024 10:28
[2024-10-07] MEDS: MORPHINE SULFATE INJ 2 MG/ml SYRG IV PRN (11:28)
[2024-10-07] MEDS: SODIUM CHLORIDE 0.9% 1,000 ML IV SCH (11:42)
[2024-10-07 12:43] VITALS: BP 122/77; PULSE 76; RESP 20; TEMP 97.7; O2SAT 96
[2024-10-07] MEDS: GABAPENTIN 300 MG CAP PO SCH (15:47)
[2024-10-07 16:50] VITALS: BP 96/53; PULSE 67; RESP 19; TEMP 98.1; O2SAT 93
[2024-10-07 21:00] VITALS: BP 119/65; PULSE 66; RESP 19; TEMP 97.8; O2SAT 95
[2024-10-08] VITALS (7 sets, daily range): BP systolic 95–137; BP diastolic 54–76; PULSE 57–83; RESP 15–18; TEMP 97.4–99.9; O2SAT 91–99
[2024-10-08 06:38] LABS: Basophils # (auto) 0.1 10 ^3/uL (0-0.2); Basophils % (auto) 2.5 % (0.0-2.0); Eosinophils # (auto) 0.1 10 ^3/uL (0-0.8); Eosinophils % (auto) 3.1 % (0.0-7.0); Hematocrit 35.4 % (41.0-53.0); Hemoglobin 12.2 g/dL (13.5-17.5); Lymphocytes # (auto) 1.6 10 ^3/uL (0.4-5.4); Lymphocytes % (auto) 36.8 % (10.0-50.0); Mean Corpuscular Hemoglobin 33.3 pg (28.0-32.0); Mean Corpuscular Hgb Conc. 34.4 g/dL (32.0-36.0); Mean Corpuscular Volume 96.9 fL (80.0-100.0); Monocytes # (auto) 0.5 10 ^3/uL (0-1.3); Monocytes % (auto) 10.9 % (0.0-12.0); Neutrophils % (auto) 46.7 % (37.0-80.0); Nucleated Red Blood Cells % 0.1 %; Platelet Count (auto) 201 10^3/uL (140-450); Red Blood Cells 3.65 10^6/uL (4.5-5.90); Red Cell Distribution Width 13.3 % (11.8-14.3); White Blood Cell 4.3 10^3/uL (4.4-10.8)
[2024-10-08] MEDS: MORPHINE SULFATE INJ 2 MG/ml SYRG IV PRN (12:12)
[2024-10-08] MEDS: DOCUSATE SOD 100 MG CAP PO PRN (18:12)
--- NOTE | 2024-10-08 21:37 | DVHPN2 ---
Subjective in bed resting Changes from previous H/P or p: No Changes Eyes: No Pain, No Vision change, No Conjunctivae inflammation, No Eyelid inflammation, No Other, No Redness Cardiovascular: No Chest Pain, No Palpitations, No Orthopnea, No Paroxysmal Noc. Dyspnea, No Edema, No Lt Headedness, No Other Respiratory: No Cough, No Dry, No Shortness of breath, No SOB with excertion, No Wheezing, No Hemoptysis, No Pleuritic Pain, No Sputum, No Other Gastrointestinal: No Nausea, No Vomiting, No Abdominal Pain, No Diarrhea, No Constipation, No Melena, No Hematochezia, No Other Genitourinary: No Dysuria, No Frequency, No Incontinence, No Hematuria, No Retention, No Other Musculoskeletal: No other, No neck pain, No shoulder pain, No arm pain, No back pain, No hand pain, No leg pain; foot pain Skin: Rash, Lesions Objective Vitals Vital Signs Date Time Temp Pulse Resp B/P (MAP) Pulse Ox O2 Delivery O2 Flow Rate FiO2 10/08/24 18:42 62 18 112/72 10/08/24 17:00 97.4 99 97.4 10/08/24 08:00 Room Air* 0 21 Intake/Output Intake and Output 10/08/24 05:00 Intake Total 2150 ml Output Total 1795 ml Balance 355 ml Intake Oral 1700 ml IV Total 450 ml Output Urine Total 1795 ml # Bowel Movements 1 General Appearance: Alert, Oriented X3, Cooperative, No acute distress Lungs: Clear to auscultation, Normal air movement Cardiovascular: Regular rate, Normal S1, Normal S2, No murmurs Abdomen: Normal bowel sounds, Soft, No tenderness Extremities: No edema Medications Current Medications Medications Dose Ordered Sig/Sobeida Route Start Time Stop Time Status Last Admin Dose Admin Vancomycin HCl 0 ml @ 0 mls/hr UD IV 10/06/24 01:30 Lorazepam 0.5 mg Q6HP PRN PO 10/06/24 01:30 10/06/24 21:54 0.5 MG Al Hydrox/Mg Hydrox/Simethicone 30 ml Q6HP PRN PO 10/06/24 01:30 Docusate Sodium 100 mg BIDPRN PRN PO 10/06/24 01:30 10/08/24 18:12 100 MG Acetaminophen 650 mg Q6HP PRN PO 10/06/24 01:30 Temazepam 15 mg QHSP PRN PO 10/06/24 01:30 Ondansetron HCl 4 mg Q4HP PRN IV 10/06/24 01:30 Piperacillin Sod/ Tazobactam Sod 100 ml @ 100 mls/hr Q8HR IV 10/06/24 14:00 10/08/24 18:11 100 MLS/HR Vancomycin HCl 250 ml @ 250 mls/hr Q12H IV 10/06/24 16:00 10/08/24 17:04 250 MLS/HR Levetiracetam 1,000 mg BID PO 10/06/24 22:00 10/08/24 10:32 1,000 MG Gabapentin 600 mg TID PO 10/07/24 14:00 10/08/24 05:42 600 MG Morphine Sulfate 4 mg Q4HPRN PRN IV 10/07/24 12:00 10/07/24 16:07 4 MG Morphine Sulfate 2 mg Q4HPRN PRN IV 10/07/24 10:30 10/08/24 18:12 2 MG Sodium Chloride 1,000 ml @ 60 mls/hr [id number] IV 10/07/24 10:30 10/07/24 11:42 60 MLS/HR Laboratory Results Laboratory Tests 10/06/24 05:58 10/08/24 05:20 Urinalysis Test 10/05/24 22:48 Urine Color Yellow (Yellow) Urine Clarity Clear (Clear) Urine pH 6.0 (5.0-9.0) Urine Specific [place] 1.020 (1.001-1.035) Urine Protein Negative (Negative) Urine Ketones Negative (Negative) Urine Blood Negative /uL (Negative) Urine Nitrite Negative (Negative) Urine Bilirubin Negative (Negative) Urine Urobilinogen 2 mg/dL (Negative) H Urine Leukocyte Esterase Negative /uL (Negative) Urine RBC 3 /hpf (0 - 3) Urine WBC None seen /hpf (0 - 3) Urine Squamous Epithelial Cells None seen /hpf (<5) Urine Bacteria None seen /hpf (None Seen) Urine Glucose Normal mg/dL (Normal) Microbiology Microbiology Date/Time Source Procedure Growth Status 10/06/24 14:06 Foot Left Gram Stain - Final Resulted 10/06/24 14:06 Foot Left Wound Culture - Preliminary Resulted Assessment/Plan Assessment/Plan Acute cellulitis of the left foot Nonhealing wound of the left foot 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 Lam for possible angiography of the lower extremity Consult Dr. Hooker Wound culture Code Advance directives discussed for 18 minutes 10/07/24: BP is low: NS IV Resume home meds: Neurontin and Keppra and ASA Wound infection: Continue IV antibiotics PVD: Consult Dr. Lam Podiatry consult 10/08 pending podiatry Plan discussed with: Patient Date of Service: Oct 08, 2024 Billing Provider: ANTHONY ESTRADA MD Common Visit Codes: [id number] INP/OBS CARE(HIGH) ANTHONY ESTRADA MD Oct 08, 2024 21:37
[2024-10-09 01:00] VITALS: BP 157/83; PULSE 65; RESP 17; TEMP 97.9; O2SAT 95
[2024-10-09 05:00] VITALS: BP 140/81; PULSE 64; RESP 17; TEMP 97.9; O2SAT 95
[2024-10-09 08:00] VITALS: PULSE 68
[2024-10-09 09:00] VITALS: BP 87/47; PULSE 54; RESP 17; TEMP 98; O2SAT 95
--- NOTE | 2024-10-09 09:08 | DVHPN2 ---
Subjective c/o pain in foot No new complaints Changes from previous H/P or p: Changes Eyes: No Pain, No Vision change, No Conjunctivae inflammation, No Eyelid inflammation, No Other, No Redness Cardiovascular: No Chest Pain, No Palpitations, No Orthopnea, No Paroxysmal Noc. Dyspnea, No Edema, No Lt Headedness, No Other Respiratory: No Cough, No Dry, No Shortness of breath, No SOB with excertion, No Wheezing, No Hemoptysis, No Pleuritic Pain, No Sputum, No Other Gastrointestinal: No Nausea, No Vomiting, No Abdominal Pain, No Diarrhea, No Constipation, No Melena, No Hematochezia, No Other Genitourinary: No Dysuria, No Frequency, No Incontinence, No Hematuria, No Retention, No Other Musculoskeletal: No other, No neck pain, No shoulder pain, No arm pain, No back pain, No hand pain, No leg pain; foot pain Skin: Rash, Lesions Objective Vitals Vital Signs Date Time Temp Pulse Resp B/P (MAP) Pulse Ox O2 Delivery O2 Flow Rate FiO2 10/09/24 06:30 60 16 98/54 10/09/24 05:00 97.9 95 97.9 10/08/24 20:00 Room Air* 0 21 Intake/Output Intake and Output 10/09/24 06:59 Intake Total 3660 ml Output Total 2800 ml Balance 860 ml Intake Oral 2310 ml IV Total 1350 ml Output Urine Total 2800 ml General Appearance: Alert, Oriented X3, Cooperative, No acute distress Lungs: Clear to auscultation, Normal air movement Cardiovascular: Regular rate, Normal S1, Normal S2, No murmurs Abdomen: Normal bowel sounds, Soft, No tenderness Extremities: No edema Medications Current Medications Medications Dose Ordered Sig/Sobeida Route Start Time Stop Time Status Last Admin Dose Admin Vancomycin HCl 0 ml @ 0 mls/hr UD IV 10/06/24 01:30 Lorazepam 0.5 mg Q6HP PRN PO 10/06/24 01:30 10/06/24 21:54 0.5 MG Al Hydrox/Mg Hydrox/Simethicone 30 ml Q6HP PRN PO 10/06/24 01:30 Docusate Sodium 100 mg BIDPRN PRN PO 10/06/24 01:30 10/08/24 18:12 100 MG Acetaminophen 650 mg Q6HP PRN PO 10/06/24 01:30 Temazepam 15 mg QHSP PRN PO 10/06/24 01:30 Ondansetron HCl 4 mg Q4HP PRN IV 10/06/24 01:30 Piperacillin Sod/ Tazobactam Sod 100 ml @ 100 mls/hr Q8HR IV 10/06/24 14:00 10/09/24 05:57 100 MLS/HR Vancomycin HCl 250 ml @ 250 mls/hr Q12H IV 10/06/24 16:00 10/09/24 04:21 250 MLS/HR Levetiracetam 1,000 mg BID PO 10/06/24 22:00 10/08/24 23:10 1,000 MG Gabapentin 600 mg TID PO 10/07/24 14:00 10/09/24 06:22 600 MG Morphine Sulfate 4 mg Q4HPRN PRN IV 10/07/24 12:00 10/07/24 16:07 4 MG Morphine Sulfate 2 mg Q4HPRN PRN IV 10/07/24 10:30 10/09/24 06:00 2 MG Sodium Chloride 1,000 ml @ 60 mls/hr [id number] IV 10/07/24 10:30 10/07/24 11:42 60 MLS/HR Laboratory Results Laboratory Tests 10/06/24 05:58 10/08/24 05:20 Urinalysis Test 10/05/24 22:48 Urine Color Yellow (Yellow) Urine Clarity Clear (Clear) Urine pH 6.0 (5.0-9.0) Urine Specific [place] 1.020 (1.001-1.035) Urine Protein Negative (Negative) Urine Ketones Negative (Negative) Urine Blood Negative /uL (Negative) Urine Nitrite Negative (Negative) Urine Bilirubin Negative (Negative) Urine Urobilinogen 2 mg/dL (Negative) H Urine Leukocyte Esterase Negative /uL (Negative) Urine RBC 3 /hpf (0 - 3) Urine WBC None seen /hpf (0 - 3) Urine Squamous Epithelial Cells None seen /hpf (<5) Urine Bacteria None seen /hpf (None Seen) Urine Glucose Normal mg/dL (Normal) Microbiology Microbiology Date/Time Source Procedure Growth Status 10/06/24 14:06 Foot Left Gram Stain - Final Resulted 10/06/24 14:06 Foot Left Wound Culture - Preliminary Resulted Assessment/Plan Assessment/Plan Acute cellulitis of the left foot Nonhealing wound of the left foot 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 Lam for possible angiography of the lower extremity Consult Dr. Hooker Wound culture Code Advance directives discussed for 18 minutes 10/07/24: BP is low: NS IV Resume home meds: Neurontin and Keppra and ASA Wound infection: Continue IV antibiotics PVD: Consult Dr. Lam Podiatry consult 10/09/2024: Continue IV antibiotics Podiatry consult Vascular consult Doppler of the lower extremities showed bilateral peripheral arterial disease with occlusion of the right mid superficial femoral artery and occluded left mid superficial femoral artery Consult Dr. Lam Plan discussed with: Patient Date of Service: Oct 09, 2024 Billing Provider: PALMER BURNS MD Common Visit Codes: [id number] INP/OBS CARE(HIGH) PALMER BURNS MD Oct 09, 2024 09:08
[2024-10-09 17:03] VITALS: BP 79/50; PULSE 63; RESP 16; TEMP 98.1; O2SAT 89
--- NOTE | 2024-10-09 18:50 | DVHINCON2 ---
Date Seen: Oct 09, 2024 Referring Physician Yris Hooker Reason for Consultation Peripheral artery disease History of Present Illness 66-year-old gentleman with a noted history of previous coronary artery disease hypertension chronic obstructive lung disease has had a nonhealing wound in his left leg. Associated history of seizure disorder status post amputation of the 3rd toe. Has been noncompliant with medications. He is a long-term persistent smoker. He was noted to have significant peripheral vascular disease for which cardiac evaluation was requested. Past Medical History He has past medical history significant for cellulitis COPD hypertension m yocardial infarction previous stents. History of seizure disorder. Past Surgical History . previous history of stenting and peripheral vascular disease evaluations Family History: FH: aneurysm G8 FATHER FH: cancer G8 MOTHER Hypertension G8 FATHER G8 MOTHER Ischemic heart disease G8 FATHER Allergies: Coded Allergies: No Known Drug Allergy (Verified Allergy, Unknown, 10/05/24) [place] (Verified Adverse Reaction, Severe, 04/12/20) Uncoded Allergies: NO DRUG ALLERGIES (Allergy, Unknown, 06/29/23) peach fruit (Adverse Reaction, Severe, 04/12/20) Home Meds Reported Medications Aspirin (Aspir-Low) 81 Mg Tab, 81 MG PO DAILY for 30 Days, MG 10/06/24 Ciprofloxacin Hcl (Ciprofloxacin Hcl) 500 Mg Tab, 500 MG PO BID, MG 10/06/24 Pravastatin Sodium (PRAVACHOL TABLET) 20 Mg Tb, 10 MG PO DAILY, TAB 10/06/24 Lisinopril (Lisinopril) 10 Mg Tab, 10 MG PO DAILY for 30 Days, MG 10/06/24 Gabapentin (Gabapentin) 600 Mg Tab, 600 MG PO BID for 30 Days, MG 10/06/24 Levetiracetam (Keppra) 500 Mg Tab, 1000 MG PO BID for 30 Days, MG 10/06/24 Pravastatin Sodium (PRAVACHOL TABLET) 20 Mg Tb, 10 MG PO DAILY, TAB 12/26/21 Review of Systems Constitutional: reports: weakness; denies: chills, diaphoresis, fatigue, fever, malaise, sweats, others EENTM: denies: blurred vision, double vision, ear bleeding, ear discharge, ear drainage, ear pain, ear ringing, eye pain, eye redness, hearing loss, mouth pain, mouth swelling, nasal discharge, nose bleeding, nose congestion, nose pain, photophobia, tearing, throat pain, throat swelling, voice changes, others Respiratory: denies: cough, hemoptysis, orthopnea, SOB at rest, shortness of breath, SOB with excertion, stridor, wheezing, others Cardiovascular: denies: chest pain, dizzy spells, diaphoresis, Dyspnea on exertion, edema, irregular heart beat, left arm pain, lightheadedness, palpitations, PND, syncope, others Gastrointestinal: denies: abdomen distended, abdominal pain, blood streaked bowels, constipated, diarrhea, dysphagia, difficulty swallowing, hematemesis, melena, nausea, poor appetite, poor fluid intake, rectal bleeding, rectal pain, vomiting, others Genitourinary: denies: burning, dysuria, flank pain, frequency, hematuria, incontinence, penile discharge, penile sore, pain, testicle pain, testicle swelling, urgency, others Neurological: denies: dizziness, fainting, headache, left sided numbness, left sided weakness, numbness, paresthesia, pre-existing deficit, right sided nu mbness, right sided weakness, seizure, speech problems, tingling, tremors, weakness, others Musculoskeletal: denies: back pain, gout, joint pain, joint swelling, muscle pain, muscle stiffness, neck pain, others Integumetry: reports: wounds (left foot ); denies: bruises, change in color, change in hair/nails, dryness, laceration, lesions, lumps, rash, others Allergic/Immunocompromised: denies: Difficulty Healing, Frequent Infections, Hives, Itching, others Hematologic/Lymphatic: denies: anemia, blood clots, easy bleeding, easy bruising, swollen glands, others Endocrine: denies: excessive hunger, excessive sweating, excessive thirst, excessive urination, flushing, intolerance to cold, intolerance to heat, unexplained weight gain, unexplained weight loss, others Psychiatric: denies: anxiety, bipolar disorder, depression, hopeless, panic disorder, schizophrenia, sleepless, suicidal, others All Other Systems: Reviewed and Negative Vital Signs Vital Signs Date Time Temp Pulse Resp B/P (MAP) Pulse Ox O2 Delivery O2 Flow Rate FiO2 10/09/24 17:03 98.1 63 16 79/50 (60) 89 98.1 10/09/24 08:00 Room Air* 0 21 Physical Exam Patient is alert and oriented no acute distress sitting up in bed still dressed. Poorly kept with unkept and malodorous, dirty clothes. HEENT examination is otherwise unremarkable no jugular distention no bruits. Diminished air entry bilaterally. COPD noted. Faint heart sounds regular S1-S2 soft S4. Abdominal examination is unremarkable extremities show diminished perfusion. No clubbing or cyanosis no significant edema. Diminished arterial pulses in the femorals popliteals bilaterally with nonhealing ulcers in his bandage left Foot. Neurologically intact. Diminished proprioception Labs/Diagnostic Data Labs Test 10/09/24 15:33 10/08/24 05:20 10/06/24 05:58 10/05/24 22:48 Range/Units Vancomycin Level Trough 23.3 H 5-10 ug/mL White Blood Count 4.3 L 4.4-10.8 10^3/uL Red Blood Count 3.65 L 4.5-5.90 10^6/uL Hemoglobin 12.2 L 13.5-17.5 g/dL Hematocrit 35.4 #L 41.0-53.0 % Mean Corpuscular Volume 96.9 80.0-100.0 fL Mean Corpuscular Hemoglobin 33.3 H 28.0-32.0 pg Mean Corpuscular Hemoglobin Concent 34.4 32.0-36.0 g/dL Red Cell Distribution Width 13.3 11.8-14.3 % Platelet Count 201 140-450 10^3/uL Mean Platelet Volume 8.3 6.9-10.8 fL Neutrophils (%) (Auto) 46.7 37.0-80.0 % Lymphocytes (%) (Auto) 36.8 10.0-50.0 % Monocytes (%) (Auto) 10.9 0.0-12.0 % Eosinophils (%) (Auto) 3.1 0.0-7.0 % Basophils (%) (Auto) 2.5 H 0.0-2.0 % Neutrophils # (Auto) 2.0 1.6-8.6 10 ^3/uL Lymphocytes # (Auto) 1.6 0.4-5.4 10 ^3/uL Monocytes # (Auto) 0.5 0-1.3 10 ^3/uL Eosinophils # (Auto) 0.1 0-0.8 10 ^3/uL Basophils # (Auto) 0.1 0-0.2 10 ^3/uL Nucleated Red Blood Cells 0.1 % Creatinine 1.09 0.700-1.30 mg/dL Glomerular Filtration Rate Calc 75 >90 mL/min Sodium Level 145 136-145 mmol/L Potassium Level 4.4 3.5-5.1 mmol/L Chloride Level 111 H 98-107 mmol/L Carbon Dioxide Level 28 20-31 mmol/L Anion Gap 6 5-15 Blood Urea Nitrogen 17 9-23 mg/dL BUN/Creatinine Ratio 14.7 10.0-20.0 Serum Glucose 86 74-106 mg/dL Calcium Level 10.0 8.7-10.4 mg/dL Urine Color Yellow Yellow Urine Clarity Clear Clear Urine pH 6.0 5.0-9.0 Urine Specific [place] 1.020 1.001-1.035 Urine Protein Negative Negative Urine Ketones Negative Negative Urine Blood Negative Negative /uL Urine Nitrite Negative Negative Urine Bilirubin Negative Negative Urine Urobilinogen 2 H Negative mg/dL Urine Leukocyte Esterase Negative Negative /uL Urine RBC 3 0 - 3 /hpf Urine WBC None seen 0 - 3 /hpf Urine Squamous Epithelial Cells None seen <5 /hpf Urine Bacteria None seen None Seen /hpf Urine Glucose Normal Normal mg/dL Test 10/05/24 21:20 10/05/24 20:08 Range/Units Lactic Acid Level 1.7 0.4-2.0 mmol/L Troponin I High Sensitivity < 3 L </=54 ng/L Total Bilirubin 0.3 0.2-1.0 mg/dL Aspartate Amino Transferase (AST) 20 13-40 U/L Alanine Aminotransferase (ALT) 17 7-40 U/L Alkaline Phosphatase 100 46-116 U/L B-Type Natriuretic Peptide 56.28 0-100 pg/mL Total Protein 6.7 5.7-8.2 g/dL Albumin 4.7 3.2-4.8 g/dL Lipase 58 H 12-53 U/L Microbiology Date/Time Source Procedure Growth Status 10/06/24 14:06 Foot Left Gram Stain - Final Resulted 10/06/24 14:06 Foot Left Wound Culture - Preliminary Resulted Assessment Hypertension. CAD. Peripheral vascular disease. Seizure disorder. Arterial Doppler showing significant obstructions at bilateral superficial femoral arteries. Nonhealing ulcer in his left foot. Arterial in origin. Plan/Recommendation Patient will undergo cardiac workup. From a peripheral vascular disease standpoint he will require an angiographic evaluation giving the significance of arterial occlusions. Possible stenting. Plan discussed with: Patient Date of Service: Oct 09, 2024 Billing Provider: SHREYA PRIETO Sr., MD Cardiology Common Codes: [id number] INP/OBS CARE (High) SHREYA PRIETO Sr., MD Oct 09, 2024 18:50
[2024-10-09 21:00] VITALS: BP 107/50; PULSE 68; RESP 17; TEMP 98.2; O2SAT 95
[2024-10-10] MEDS: TEMAZEPAM 15 MG CAP PO PRN (00:50)
[2024-10-10] MEDS: ACETAMINOPHEN 325 MG TAB PO PRN (00:50)
[2024-10-10 01:00] VITALS: BP 105/45; PULSE 68; RESP 17; TEMP 98.5; O2SAT 93
[2024-10-10 06:38] LABS: Basophils # (auto) 0 10 ^3/uL (0-0.2); Eosinophils # (auto) 0.1 10 ^3/uL (0-0.8); Eosinophils % (auto) 3.3 % (0.0-7.0); Hematocrit 34.4 % (41.0-53.0); Hemoglobin 11.6 g/dL (13.5-17.5); Lymphocytes % (auto) 29.8 % (10.0-50.0); Mean Corpuscular Hemoglobin 32.9 pg (28.0-32.0); Mean Corpuscular Hgb Conc. 33.8 g/dL (32.0-36.0); Mean Corpuscular Volume 97.4 fL (80.0-100.0); Monocytes # (auto) 0.4 10 ^3/uL (0-1.3); Monocytes % (auto) 11.4 % (0.0-12.0); Neutrophils # (auto) 1.8 10 ^3/uL (1.6-8.6); Neutrophils % (auto) 54.5 % (37.0-80.0); Nucleated Red Blood Cells % 0.1 %; Platelet Count (auto) 207 10^3/uL (140-450); Red Blood Cells 3.53 10^6/uL (4.5-5.90); Red Cell Distribution Width 13.3 % (11.8-14.3); White Blood Cell 3.3 10^3/uL (4.4-10.8)
--- NOTE | 2024-10-10 09:08 | DVHPN2 ---
Subjective New complaints The patient will undergo cardiac and vascular evaluation by Dr. Lam Changes from previous H/P or p: Changes Eyes: No Pain, No Vision change, No Conjunctivae inflammation, No Eyelid inflammation, No Other, No Redness Cardiovascular: No Chest Pain, No Palpitations, No Orthopnea, No Paroxysmal Noc. Dyspnea, No Edema, No Lt Headedness, No Other Respiratory: No Cough, No Dry, No Shortness of breath, No SOB with excertion, No Wheezing, No Hemoptysis, No Pleuritic Pain, No Sputum, No Other Gastrointestinal: No Nausea, No Vomiting, No Abdominal Pain, No Diarrhea, No Constipation, No Melena, No Hematochezia, No Other Genitourinary: No Dysuria, No Frequency, No Incontinence, No Hematuria, No Retention, No Other Musculoskeletal: No other, No neck pain, No shoulder pain, No arm pain, No back pain, No hand pain, No leg pain; foot pain Skin: Rash, Lesions Objective Vitals Vital Signs Date Time Temp Pulse Resp B/P (MAP) Pulse Ox O2 Delivery O2 Flow Rate FiO2 10/10/24 08:00 Room Air* 0 21 10/10/24 01:00 98.5 68 17 105/45 (65) 93 98.5 Intake/Output Intake and Output 10/10/24 07:00 Intake Total 3290 ml Output Total 2270 ml Balance 1020 ml Intake Oral 2050 ml IV Total 1240 ml Output Urine Total 2270 ml # Voids 8 # Bowel Movements 2 General Appearance: Alert, Oriented X3, Cooperative, No acute distress Lungs: Clear to auscultation, Normal air movement Cardiovascular: Regular rate, Normal S1, Normal S2, No murmurs Abdomen: Normal bowel sounds, Soft, No tenderness Extremities: No edema Medications Current Medications Medications Dose Ordered Sig/Sobeida Route Start Time Stop Time Status Last Admin Dose Admin Vancomycin HCl 0 ml @ 0 mls/hr UD IV 10/06/24 01:30 Lorazepam 0.5 mg Q6HP PRN PO 10/06/24 01:30 10/06/24 21:54 0.5 MG Al Hydrox/Mg Hydrox/Simethicone 30 ml Q6HP PRN PO 10/06/24 01:30 Docusate Sodium 100 mg BIDPRN PRN PO 10/06/24 01:30 10/09/24 09:25 100 MG Acetaminophen 650 mg Q6HP PRN PO 10/06/24 01:30 10/10/24 00:50 650 MG Temazepam 15 mg QHSP PRN PO 10/06/24 01:30 10/10/24 00:50 15 MG Ondansetron HCl 4 mg Q4HP PRN IV 10/06/24 01:30 Piperacillin Sod/ Tazobactam Sod 100 ml @ 100 mls/hr Q8HR IV 10/06/24 14:00 10/10/24 05:43 100 MLS/HR Levetiracetam 1,000 mg BID PO 10/06/24 22:00 10/09/24 21:24 1,000 MG Gabapentin 600 mg TID PO 10/07/24 14:00 10/10/24 05:43 600 MG Morphine Sulfate 4 mg Q4HPRN PRN IV 10/07/24 12:00 10/07/24 16:07 4 MG Morphine Sulfate 2 mg Q4HPRN PRN IV 10/07/24 10:30 10/09/24 06:00 2 MG Sodium Chloride 1,000 ml @ 60 mls/hr [id number] IV 10/07/24 10:30 10/09/24 12:57 60 MLS/HR Laboratory Results Laboratory Tests 10/06/24 05:58 10/10/24 05:33 Urinalysis Test 10/05/24 22:48 Urine Color Yellow (Yellow) Urine Clarity Clear (Clear) Urine pH 6.0 (5.0-9.0) Urine Specific [place] 1.020 (1.001-1.035) Urine Protein Negative (Negative) Urine Ketones Negative (Negative) Urine Blood Negative /uL (Negative) Urine Nitrite Negative (Negative) Urine Bilirubin Negative (Negative) Urine Urobilinogen 2 mg/dL (Negative) H Urine Leukocyte Esterase Negative /uL (Negative) Urine RBC 3 /hpf (0 - 3) Urine WBC None seen /hpf (0 - 3) Urine Squamous Epithelial Cells None seen /hpf (<5) Urine Bacteria None seen /hpf (None Seen) Urine Glucose Normal mg/dL (Normal) Microbiology Microbiology Date/Time Source Procedure Growth Status 10/06/24 14:06 Foot Left Gram Stain - Final Resulted 10/06/24 14:06 Foot Left Wound Culture - Preliminary Resulted Assessment/Plan Assessment/Plan Acute cellulitis of the left foot Nonhealing wound of the left foot 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 Lam for possible angiography of the lower extremity Consult Dr. Hooker Wound culture Code Advance directives discussed for 18 minutes 10/07/24: BP is low: NS IV Resume home meds: Neurontin and Keppra and ASA Wound infection: Continue IV antibiotics PVD: Consult Dr. Lam Podiatry consult 10/09/2024: Continue IV antibiotics Podiatry consult Vascular consult Doppler of the lower extremities showed bilateral peripheral arterial disease with occlusion of the right mid superficial femoral artery and occluded left mid superficial femoral artery Consult Dr. Lam 10/10/2024: Continue IV antibiotics Continue pain management Continue normal saline Wound culture showed gram positive cocci in pairs Plan discussed with: Patient My Orders Orders - PALMER BURNS MD Procedure Category Date Status Time Dietary NOTICE 10/09/24 Transmitted Recommendations 16:10 Date of Service: Oct 10, 2024 Billing Provider: PALMER BURNS MD Common Visit Codes: [id number] INP/OBS CARE(HIGH) PALMER BURNS MD Oct 10, 2024 09:08
[2024-10-10 09:20] VITALS: BP 110/64; PULSE 74; RESP 18; TEMP 97.9; O2SAT 96
[2024-10-10 13:27] VITALS: BP 112/66; PULSE 77; RESP 19; TEMP 98.1; O2SAT 96
--- NOTE | 2024-10-10 16:05 | DVHINCON2 ---
Date of service: Oct 10, [address] Ariane MD Reason for Consultation Ulcerations x 2 left foot. History of Present Illness 66-year-old patient with a past medical history of hypertension COPD SC seizures and a chronic left foot ulcerations. The patient has been at my office for debridement and treatment. The patient noticed increased pain and redness and went to [facility] for admission and treatment for possible osteomyelitis left foot. The patient has had a previous left great toe amputation. The patient denies any complaints. Past Medical History DM II, HTN, COPD, Seizure. Past Surgical History Left great toe amputation. Ulcer debridement Family History: FH: aneurysm G8 FATHER FH: cancer G8 MOTHER Hypertension G8 FATHER G8 MOTHER Ischemic heart disease G8 FATHER Family History Reviewed and is non-contributory to management of this case. Social History Admits to smoking 3-4 packs per day Denies alcohol use Admits to Cannibis use Allergies: Coded Allergies: No Known Drug Allergy (Verified Allergy, Unknown, 10/05/24) [place] (Verified Adverse Reaction, Severe, 04/12/20) Uncoded Allergies: NO DRUG ALLERGIES (Allergy, Unknown, 06/29/23) peach fruit (Adverse Reaction, Severe, 04/12/20) Home Meds Reported Medications Aspirin (Aspir-Low) 81 Mg Tab, 81 MG PO DAILY for 30 Days, MG 10/06/24 Ciprofloxacin Hcl (Ciprofloxacin Hcl) 500 Mg Tab, 500 MG PO BID, MG 10/06/24 Pravastatin Sodium (PRAVACHOL TABLET) 20 Mg Tb, 10 MG PO DAILY, TAB 10/06/24 Lisinopril (Lisinopril) 10 Mg Tab, 10 MG PO DAILY for 30 Days, MG 10/06/24 Gabapentin (Gabapentin) 600 Mg Tab, 600 MG PO BID for 30 Days, MG 10/06/24 Levetiracetam (Keppra) 500 Mg Tab, 1000 MG PO BID for 30 Days, MG 10/06/24 Pravastatin Sodium (PRAVACHOL TABLET) 20 Mg Tb, 10 MG PO DAILY, TAB 12/26/21 Review of Systems Review of Systems Constitutional: Yes: Fever, Weakness; No: Chills, Sweats, Malaise, Other Eyes: No: Pain, Vision change, Conjunctivae inflammation, Eyelid inflammation, Other, Redness Respiratory: No: Cough, Dry, Shortness of breath, SOB with excertion, Wheezing, Hemoptysis, Pleuritic Pain, Sputum, Wheezing, Other Cardiovascular: No: Chest Pain, Palpitations, Orthopnea, Paroxysmal Noc. Dyspnea, Edema, Lt Headedness, Other Gastrointestinal: No: Nausea, Vomiting, Abdominal Pain, Diarrhea, Constipation, Melena, Hematochezia, Other Genitourinary: No Dysuria, No Frequency, No Incontinence, No Hematuria, No Retention, No Other Musculoskeletal: foot pain; No: other, neck pain, shoulder pain, arm pain, back pain, hand pain, leg pain. Chronic ulcerations at stump of the left great toe and2nd left toe,at PIPJ. Skin: Rash, Lesions Neurological: No: Weakness, Numbness, Incoordination, Change in speech, Confus ion, Seizures, Other Vital Signs Vital Signs Date Time Temp Pulse Resp B/P (MAP) Pulse Ox O2 Delivery O2 Flow Rate FiO2 10/10/24 13:27 98.1 77 19 112/66 (81) 96 98.1 10/10/24 08:00 Room Air* 0 21 Physical Exam General Appearance: Alert, Oriented X3, moderate distress HEENT: PERRLA, EOMI Respiratory: Clear to auscultation, Normal air movement Cardiovascular: Regular rate, Normal S1, Normal S2 Abdominal: Normal bowel sounds, No tenderness Extremities: No clubbing, No cyanosis, No edema (Lower extremity swelling), Chronic ulcerations at stump of the left great toe and 2nd left toe measuring approximately 4x3x0.25, and 2.0x2.0x0.25cm. VASC STATUS: +1/4 bilaterally, CFT >5 seconds bilaterally. No focal deficit. Skin: No rashes Neuro: Normal gait, Normal speech, Strength at 5/5 X4 ext Psych/Mental Status: Mood NL Arterial US results indicate significant stenosis BLE. Angiogram/plasty BLE is pending by Dr. Genaro MD. Imaging Studies are negative for osteomyelitis left foot. Labs/Diagnostic Data Labs Test 10/10/24 05:33 10/09/24 15:33 10/06/24 05:58 10/05/24 22:48 Range/Units White Blood Count 3.3 L 4.4-10.8 10^3/uL Red Blood Count 3.53 L 4.5-5.90 10^6/uL Hemoglobin 11.6 L 13.5-17.5 g/dL Hematocrit 34.4 L 41.0-53.0 % Mean Corpuscular Volume 97.4 80.0-100.0 fL Mean Corpuscular Hemoglobin 32.9 H 28.0-32.0 pg Mean Corpuscular Hemoglobin Concent 33.8 32.0-36.0 g/dL Red Cell Distribution Width 13.3 11.8-14.3 % Platelet Count 207 140-450 10^3/uL Mean Platelet Volume 8.3 6.9-10.8 fL Neutrophils (%) (Auto) 54.5 37.0-80.0 % Lymphocytes (%) (Auto) 29.8 10.0-50.0 % Monocytes (%) (Auto) 11.4 0.0-12.0 % Eosinophils (%) (Auto) 3.3 0.0-7.0 % Basophils (%) (Auto) 1.0 0.0-2.0 % Neutrophils # (Auto) 1.8 1.6-8.6 10 ^3/uL Lymphocytes # (Auto) 1.0 0.4-5.4 10 ^3/uL Monocytes # (Auto) 0.4 0-1.3 10 ^3/uL Eosinophils # (Auto) 0.1 0-0.8 10 ^3/uL Basophils # (Auto) 0 0-0.2 10 ^3/uL Nucleated Red Blood Cells 0.1 % Creatinine 1.21 0.700-1.30 mg/dL Glomerular Filtration Rate Calc 66 >90 mL/min Vancomycin Level Trough 23.3 H 5-10 ug/mL Sodium Level 145 136-145 mmol/L Potassium Level 4.4 3.5-5.1 mmol/L Chloride Level 111 H 98-107 mmol/L Carbon Dioxide Level 28 20-31 mmol/L Anion Gap 6 5-15 Blood Urea Nitrogen 17 9-23 mg/dL BUN/Creatinine Ratio 14.7 10.0-20.0 Serum Glucose 86 74-106 mg/dL Calcium Level 10.0 8.7-10.4 mg/dL Urine Color Yellow Yellow Urine Clarity Clear Clear Urine pH 6.0 5.0-9.0 Urine Specific [place] 1.020 1.001-1.035 Urine Protein Negative Negative Urine Ketones Negative Negative Urine Blood Negative Negative /uL Urine Nitrite Negative Negative Urine Bilirubin Negative Negative Urine Urobilinogen 2 H Negative mg/dL Urine Leukocyte Esterase Negative Negative /uL Urine RBC 3 0 - 3 /hpf Urine WBC None seen 0 - 3 /hpf Urine Squamous Epithelial Cells None seen <5 /hpf Urine Bacteria None seen None Seen /hpf Urine Glucose Normal Normal mg/dL Test 10/05/24 21:20 10/05/24 20:08 Range/Units Lactic Acid Level 1.7 0.4-2.0 mmol/L Troponin I High Sensitivity < 3 L </=54 ng/L Total Bilirubin 0.3 0.2-1.0 mg/dL Aspartate Amino Transferase (AST) 20 13-40 U/L Alanine Aminotransferase (ALT) 17 7-40 U/L Alkaline Phosphatase 100 46-116 U/L B-Type Natriuretic Peptide 56.28 0-100 pg/mL Total Protein 6.7 5.7-8.2 g/dL Albumin 4.7 3.2-4.8 g/dL Lipase 58 H 12-53 U/L Microbiology Date/Time Source Procedure Growth Status 10/06/24 14:06 Foot Left Gram Stain - Final Complete 10/06/24 14:06 Foot Left Wound Culture - Final Complete Assessment Painful Chronic ulcerations at stump of the left great toe and 2nd left toe at PIPJ. Painful Cellulitis left foot. PVD BLE Plan/Recommendation -continue with antibiotics as prescribed. -Angiogram/plasty BLE is scheduled for tomorrow by Dr. Genaro MD. -Strongly counseled the patient on smoking cessation, and the importance of quitting in order to accelerate healing. -Further evaluation and management will depend on the patient's clinical progress. -All questions and concerns were answered to the patient's satisfaction. Thank you for your consultation. Plan discussed with: Patient COLLIN CORTEZ HERB Oct 10, 2024 16:05
[2024-10-10 16:19] VITALS: BP 115/70; PULSE 76; RESP 20; TEMP 98.7; O2SAT 95
[2024-10-10 21:00] VITALS: BP 107/55; PULSE 72; RESP 19; TEMP 98; O2SAT 97
[2024-10-11] VITALS (8 sets, daily range): BP systolic 116–173; BP diastolic 61–86; PULSE 57–87; RESP 15–20; TEMP 97.4–98.8; O2SAT 90–100
[2024-10-11 07:34] LABS: Alanine Aminotransferase 14 U/L (7-40); Albumin 4.4 g/dL (3.2-4.8); Alkaline Phosphatase 81 U/L (46-116); Anion Gap 4 (5-15); Aspartate Aminotransferase 17 U/L (13-40); BUN/Creatinine Ratio 12.8 (10.0-20.0); Bilirubin, Total 0.4 mg/dL (0.2-1.0); Blood Urea Nitrogen 15 mg/dL (9-23); Calcium 10.4 mg/dL (8.7-10.4); Carbon Dioxide 29 mmol/L (20-31); Glucose 95 mg/dL (74-106); Potassium 4.1 mmol/L (3.5-5.1); Sodium 141 mmol/L (136-145)
[2024-10-11 07:39] LABS: Chloride 108 mmol/L (98-107)
--- NOTE | 2024-10-11 08:48 | DVHPN2 ---
Subjective New complaints The patient will undergo cardiac and vascular evaluation by Dr. Lam Changes from previous H/P or p: Changes Eyes: No Pain, No Vision change, No Conjunctivae inflammation, No Eyelid inflammation, No Other, No Redness Cardiovascular: No Chest Pain, No Palpitations, No Orthopnea, No Paroxysmal Noc. Dyspnea, No Edema, No Lt Headedness, No Other Respiratory: No Cough, No Dry, No Shortness of breath, No SOB with excertion, No Wheezing, No Hemoptysis, No Pleuritic Pain, No Sputum, No Other Gastrointestinal: No Nausea, No Vomiting, No Abdominal Pain, No Diarrhea, No Constipation, No Melena, No Hematochezia, No Other Genitourinary: No Dysuria, No Frequency, No Incontinence, No Hematuria, No Retention, No Other Musculoskeletal: No other, No neck pain, No shoulder pain, No arm pain, No back pain, No hand pain, No leg pain; foot pain Skin: Rash, Lesions Objective Vitals Vital Signs Date Time Temp Pulse Resp B/P (MAP) Pulse Ox O2 Delivery O2 Flow Rate FiO2 10/11/24 05:00 97.9 69 20 116/66 (83) 94 97.9 10/10/24 20:00 Room Air* 0 21 Intake/Output Intake and Output 10/11/24 07:00 Intake Total 1280 ml Output Total 2550 ml Balance -1270 ml Intake Oral 670 ml IV Total 610 ml Output Urine Total 2550 ml # Bowel Movements 1 General Appearance: Alert, Oriented X3, Cooperative, No acute distress Lungs: Clear to auscultation, Normal air movement Cardiovascular: Regular rate, Normal S1, Normal S2, No murmurs Abdomen: Normal bowel sounds, Soft, No tenderness Extremities: No edema Medications Current Medications Medications Dose Ordered Sig/Sobeida Route Start Time Stop Time Status Last Admin Dose Admin Vancomycin HCl 0 ml @ 0 mls/hr UD IV 10/06/24 01:30 Lorazepam 0.5 mg Q6HP PRN PO 10/06/24 01:30 10/06/24 21:54 0.5 MG Al Hydrox/Mg Hydrox/Simethicone 30 ml Q6HP PRN PO 10/06/24 01:30 Docusate Sodium 100 mg BIDPRN PRN PO 10/06/24 01:30 10/09/24 09:25 100 MG Acetaminophen 650 mg Q6HP PRN PO 10/06/24 01:30 10/10/24 00:50 650 MG Temazepam 15 mg QHSP PRN PO 10/06/24 01:30 10/10/24 00:50 15 MG Ondansetron HCl 4 mg Q4HP PRN IV 10/06/24 01:30 Piperacillin Sod/ Tazobactam Sod 100 ml @ 100 mls/hr Q8HR IV 10/06/24 14:00 10/10/24 21:22 100 MLS/HR Levetiracetam 1,000 mg BID PO 10/06/24 22:00 10/10/24 21:26 1,000 MG Gabapentin 600 mg TID PO 10/07/24 14:00 10/11/24 06:18 600 MG Morphine Sulfate 4 mg Q4HPRN PRN IV 10/07/24 12:00 10/07/24 16:07 4 MG Morphine Sulfate 2 mg Q4HPRN PRN IV 10/07/24 10:30 10/11/24 01:48 2 MG Sodium Chloride 1,000 ml @ 60 mls/hr [id number] IV 10/07/24 10:30 10/10/24 21:26 60 MLS/HR Laboratory Results Laboratory Tests 10/10/24 05:33 10/11/24 06:53 Chemistry Test 10/11/24 06:53 Albumin 4.4 g/dL (3.2-4.8) Calcium Level 10.4 mg/dL (8.7-10.4) Total Protein 7.0 g/dL (5.7-8.2) LFT Test 10/11/24 06:53 Alanine Aminotransferase (ALT) 14 U/L (7-40) Alkaline Phosphatase 81 U/L (46-116) Aspartate Amino Transferase (AST) 17 U/L (13-40) Total Bilirubin 0.4 mg/dL (0.2-1.0) Urinalysis Test 10/05/24 22:48 Urine Color Yellow (Yellow) Urine Clarity Clear (Clear) Urine pH 6.0 (5.0-9.0) Urine Specific [place] 1.020 (1.001-1.035) Urine Protein Negative (Negative) Urine Ketones Negative (Negative) Urine Blood Negative /uL (Negative) Urine Nitrite Negative (Negative) Urine Bilirubin Negative (Negative) Urine Urobilinogen 2 mg/dL (Negative) H Urine Leukocyte Esterase Negative /uL (Negative) Urine RBC 3 /hpf (0 - 3) Urine WBC None seen /hpf (0 - 3) Urine Squamous Epithelial Cells None seen /hpf (<5) Urine Bacteria None seen /hpf (None Seen) Urine Glucose Normal mg/dL (Normal) Microbiology Microbiology Date/Time Source Procedure Growth Status 10/06/24 14:06 Foot Left Gram Stain - Final Complete 10/06/24 14:06 Foot Left Wound Culture - Final Complete Assessment/Plan Assessment/Plan Acute cellulitis of the left foot Nonhealing wound of the left foot 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 Lam for possible angiography of the lower extremity Consult Dr. Hooker Wound culture Code Advance directives discussed for 18 minutes 10/07/24: BP is low: NS IV Resume home meds: Neurontin and Keppra and ASA Wound infection: Continue IV antibiotics PVD: Consult Dr. Lam Podiatry consult 10/09/2024: Continue IV antibiotics Podiatry consult Vascular consult Doppler of the lower extremities showed bilateral peripheral arterial disease with occlusion of the right mid superficial femoral artery and occluded left mid superficial femoral artery Consult Dr. Lam 10/10/2024: Continue IV antibiotics Continue pain management Continue normal saline Wound culture showed gram positive cocci in pairs 10/11/24: BLE angiogram today Continue IV antibiotics Podiatry consult Plan discussed with: Patient Date of Service: Oct 11, 2024 Billing Provider: PALMER BURNS MD Common Visit Codes: [id number] INP/OBS CARE(HIGH) PALMER BURNS MD Oct 11, 2024 08:48
[2024-10-11] MEDS: IODIXANOL 320MG/ML 100ML BTL IV ONE (15:14)
[2024-10-11] MEDS: HEPARIN IN NS 1000Units/500mL 1,500 ML ONE (15:15)
[2024-10-11] MEDS: MIDAZOLAM HCL 2MG/2ML 2ml VIAL (1mg/ml) ONE ×2 (15:48→16:33)
[2024-10-11] MEDS: fentaNYL CITRATE 100 MCG/2 ML VL ONE ×2 (15:48→16:52)
[2024-10-11] MEDS: LIDOCAINE 2%HCL (LOCAL ANESTH.) INJ 20ML MDV ONE (15:58)
[2024-10-11] MEDS: SODIUM CHL 0.9% 50 ML ONE ×2 (16:06→16:58)
[2024-10-11] MEDS: ANGIOMAX 250 MG VIAL IV ONE ×2 (16:06→16:58)
[2024-10-11] MEDS: methylPREDNISolone SOD SUCC 125 MG/2 ML VL ONE (17:52)
[2024-10-11] MEDS: CLOPIDOGREL BISULFATE 75 MG TAB ONE (17:52)
--- NOTE | 2024-10-11 17:52 | DVHOP2 ---
Operative Report -Cardiology Report Details Date: 10/11/24 Preop Diagnosis: PERIPHERAL VASCULAR DISEASE. Postop Diagnosis: SUCCESSFUL LICENSED SURVEYOR AND STENTING OF THE LEFT PROXIMAL ILIAC. SUCCESSFUL APERTURE OF CHRONIC TOTAL OCCLUSION OF STENTED LEFT SFA. OCCLUDED SFA IN ITS ENTIRETY. POPLITEAL. APERTURE OF SFA AND POPLITEAL OF LEFT LOWER EXTREMITY Surgeon: Shreya Lam MD Anesthesiologist: Conscious sedation. Anesthesia: Mac, Local Consent: The patient was informed of the risks and benefits of the procedure. These include but are not limited to complications of anesthesia, postoperative infection, incomplete relief of symptoms, recurrence of symptoms, damage to blood vessels, nerves and tendons, deep venous thrombosis, pulmonary embolism and possible need for repeat surgery in the future. Complications: No complications. Estimated Blood Loss: 15 cc. Findings: Occluded bilateral SFA is. Significant stenosis of the left proximal iliac. Indications for Surgery: Severe claudication nonhealing wound. Resting leg pain. Name of Procedure Performed Peripheral angiographic evaluation lower extremities. LICENSED SURVEYOR and stenting of the left iliac. LICENSED SURVEYOR and atherotomy of left SFA and popliteal artery. Procedure Details Procedure Details: Prior local anesthesia with 2% lidocaine to the right groin and full informed consent obtained patient was prepped and draped in usual fashion followed by placement of a six Tajik sheath into the right femoral artery and runoff performed of the right femoral artery to the level of the thigh. We then placed a rim catheter contralaterally and performed angiographic evaluation of the left lower extremity to the level of the ankle with digital subtraction angiography. After angiographic evaluation we noticed that there was a complete occlusion of the right proximal SFA. The left proximal iliac had an 80% stenosis. The left SFA is completely occluded. The profunda collateralizes the distal vessels and the tibioperoneal trunk. The posterior tibial artery is patent to the level of the ankle in posterior plantar arch. The anterior tibial artery is occluded. The peroneal dwindles off at the level of the ankle. We placed a an eight Tajik destination sheath into the right femoral artery. We then placed a quick cross catheter into the proximal SFA and an advantage wire. We were able to dissect into the popliteal artery where we confirmed patency with contrast. We then exchanged for a sport wire 0 one for in size and placed a six by 120 chocolate balloon and dilated from distal to proximal. We were able to open the in stent restenosis segments and the entirety of the SFA successfully with atherotomy balloon. There were no dissections noted. Subsequent to this we addressed the left iliac stenosis by placing an 8 mm balloon and pre-dilated followed by placing a [place] express iliac stent 9 x 37 in the left proximal iliac artery. The balloon/stent was inflated to approximately 4-6 atmospheres. We then retracted the balloon. We then placed in 8 mm mustang balloon previously used and placed distally into the popliteal artery and performed angiographic evaluation noting that there was patency of the tibioperoneal trunk the peroneal artery and the posterior tibial to the level of the foot and posterior plantar arch. We placed a Perclose on the right femoral artery and the procedure was terminated. There were no complications. Impression successful aperture of the left chronically occluded superior visual femoral artery and popliteal artery. Stenting of the left proximal iliac for a critical stenosis. Reestablishing flow to the left foot in its entirety. Recommendations: Suggest dual antiplatelet therapy. Ambulation and smoking cessation. Patient may proceed with podiatry procedures as needed. Condition Fair Disposition Still a Patient (Patient will have debridement of wound by Dr. Hooker) SHREYA LAM Sr., MD Oct 11, 2024 17:52
[2024-10-11] MEDS: diphenhdrAMINE HCL 50 MG/1 ML VL ONE (17:53)
[2024-10-11] MEDS: FAMOTIDINE (10MG/ML) 2ML VL IV ONE (17:53)
--- NOTE | 2024-10-11 17:54 | DVHPN2 ---
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 Aperture of chronic total occlusion of left superficial femoral artery and popliteal artery. Angiographic evaluation of bilateral lower extremities.) SHREYA PRIETO Sr., MD Oct 11, 2024 17:54
[2024-10-11] MEDS: VANCOMYCIN 1GM/250ML KIT 250 ML IV SCH (20:47)
[2024-10-11] MEDS: ATORVASTATIN 20 MG TAB PO SCH (21:00)
[2024-10-12] VITALS (8 sets, daily range): BP systolic 104–146; BP diastolic 36–75; PULSE 72–82; RESP 17–20; TEMP 97.9–98.4; O2SAT 85–97
--- NOTE | 2024-10-12 09:10 | DVHPN2 ---
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 Dyspnea, No Edema, No Lt Headedness, No Other Respiratory: No Cough, No Dry, No Shortness of breath, No SOB with excertion, No Wheezing, No Hemoptysis, No Pleuritic Pain, No Sputum, No Other Gastrointestinal: No Nausea, No Vomiting, No Abdominal Pain, No Diarrhea, No Constipation, No Melena, No Hematochezia, No Other Genitourinary: No Dysuria, No Frequency, No Incontinence, No Hematuria, No Retention, No Other Musculoskeletal: No other, No neck pain, No shoulder pain, No arm pain, No back pain, No hand pain, No leg pain; foot pain Skin: Rash, Lesions Objective Vitals Vital Signs Date Time Temp Pulse Resp B/P (MAP) Pulse Ox O2 Delivery O2 Flow Rate FiO2 10/12/24 05:00 98.4 72 20 113/36 (61) 85 98.4 10/11/24 20:00 Room Air* 0 21 Intake/Output Intake and Output 10/12/24 07:00 Intake Total 370 ml Output Total 1225 ml Balance -855 ml Intake Oral 120 ml IV Total 250 ml Output Urine Total 1225 ml # Bowel Movements 2 General Appearance: Alert, Oriented X3, Cooperative, No acute distress Lungs: Clear to auscultation, Normal air movement Cardiovascular: Regular rate, Normal S1, Normal S2, No murmurs Abdomen: Normal bowel sounds, Soft, No tenderness Extremities: No edema Medications Current Medications Medications Dose Ordered Sig/Sobeida Route Start Time Stop Time Status Last Admin Dose Admin Vancomycin HCl 0 ml @ 0 mls/hr UD IV 10/06/24 01:30 Lorazepam 0.5 mg Q6HP PRN PO 10/06/24 01:30 10/06/24 21:54 0.5 MG Al Hydrox/Mg Hydrox/Simethicone 30 ml Q6HP PRN PO 10/06/24 01:30 Docusate Sodium 100 mg BIDPRN PRN PO 10/06/24 01:30 10/09/24 09:25 100 MG Acetaminophen 650 mg Q6HP PRN PO 10/06/24 01:30 10/10/24 00:50 650 MG Temazepam 15 mg QHSP PRN PO 10/06/24 01:30 10/10/24 00:50 15 MG Ondansetron HCl 4 mg Q4HP PRN IV 10/06/24 01:30 Piperacillin Sod/ Tazobactam Sod 100 ml @ 100 mls/hr Q8HR IV 10/06/24 14:00 10/10/24 21:22 100 MLS/HR Levetiracetam 1,000 mg BID PO 10/06/24 22:00 10/11/24 21:59 1,000 MG Gabapentin 600 mg TID PO 10/07/24 14:00 10/12/24 05:30 600 MG Morphine Sulfate 4 mg Q4HPRN PRN IV 10/07/24 12:00 10/07/24 16:07 4 MG Morphine Sulfate 2 mg Q4HPRN PRN IV 10/07/24 10:30 10/11/24 01:48 2 MG Sodium Chloride 1,000 ml @ 60 mls/hr [id number] IV 10/07/24 10:30 10/11/24 14:30 60 MLS/HR Vancomycin HCl 250 ml @ 250 mls/hr Q16H IV 10/11/24 17:00 10/11/24 20:47 250 MLS/HR Clopidogrel Bisulfate 75 mg DAILY PO 10/12/24 10:00 Atorvastatin Calcium 40 mg HS PO 10/11/24 22:00 10/11/24 21:00 40 MG Prednisone 20 mg DAILY PO 10/12/24 10:00 10/16/24 10:01 Laboratory Results Laboratory Tests 10/10/24 05:33 10/11/24 06:53 Urinalysis Test 10/05/24 22:48 Urine Color Yellow (Yellow) Urine Clarity Clear (Clear) Urine pH 6.0 (5.0-9.0) Urine Specific [place] 1.020 (1.001-1.035) Urine Protein Negative (Negative) Urine Ketones Negative (Negative) Urine Blood Negative /uL (Negative) Urine Nitrite Negative (Negative) Urine Bilirubin Negative (Negative) Urine Urobilinogen 2 mg/dL (Negative) H Urine Leukocyte Esterase Negative /uL (Negative) Urine RBC 3 /hpf (0 - 3) Urine WBC None seen /hpf (0 - 3) Urine Squamous Epithelial Cells None seen /hpf (<5) Urine Bacteria None seen /hpf (None Seen) Urine Glucose Normal mg/dL (Normal) Microbiology Microbiology Date/Time Source Procedure Growth Status 10/06/24 14:06 Foot Left Gram Stain - Final Complete 10/06/24 14:06 Foot Left Wound Culture - Final Complete Assessment/Plan Assessment/Plan Acute cellulitis of the left foot Nonhealing wound of the left foot 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 Lam for possible angiography of the lower extremity Consult Dr. Hooker Wound culture Code Advance directives discussed for 18 minutes 10/07/24: BP is low: NS IV Resume home meds: Neurontin and Keppra and ASA Wound infection: Continue IV antibiotics PVD: Consult Dr. Lam Podiatry consult 10/09/2024: Continue IV antibiotics Podiatry consult Vascular consult Doppler of the lower extremities showed bilateral peripheral arterial disease with occlusion of the right mid superficial femoral artery and occluded left mid superficial femoral artery Consult Dr. Lam 10/10/2024: Continue IV antibiotics Continue pain management Continue normal saline Wound culture showed gram positive cocci in pairs 10/11/24: BLE angiogram today Continue IV antibiotics Podiatry consult 10/12/24: LLE foot cellulitis: IV Zosyn and Vanco PAD: ASA & Plavix Seizure D. COPD HTN Discussed with Dr. Hooker, will assess for any surgical needs Plan discussed with: Patient My Orders Orders - PALMER BURNS MD Procedure Category Date Status Time Cl Angio Extremity CL 10/11/24 Taken Bilat S&I 15:44 Date of Service: Oct 12, 2024 Billing Provider: PALMER BURNS MD Common Visit Codes: [id number] INP/OBS CARE(HIGH) PALMER BURNS MD Oct 12, 2024 09:10
[2024-10-12] MEDS: CLOPIDOGREL BISULFATE 75 MG TAB PO SCH (09:14)
[2024-10-12] MEDS: predniSONE 20 MG TAB PO SCH (09:17)
--- NOTE | 2024-10-12 10:11 | DVHPN2 ---
Progress Note - Dictate Date Seen: Oct 12, 2024 Medical Necessity Reason Pt with a Central, PICC or Fol: No Subjective The patient was seen at bed side resting comfortably. The patient declines any complaints and has no new complaints. The patient had LLE angiogram/plasty yesterday by Dr. Lam. vital signs Vital Sign Date Time Temp Pulse Resp B/P (MAP) Pulse Ox O2 Delivery O2 Flow Rate FiO2 10/12/24 05:00 98.4 72 20 113/36 (61) 85 98.4 10/11/24 20:00 Room Air* 0 21 Total Intake and Output 10/11/24 10/11/24 10/12/24 15:00 23:00 07:00 Intake Total 250 ml 120 ml Output Total 725 ml 500 ml Balance -475 ml -380 ml medications Current Medications Medications Dose Ordered Sig/Sobeida Route Start Time Stop Time Status Last Admin Dose Admin Vancomycin HCl 0 ml @ 0 mls/hr UD IV 10/06/24 01:30 Lorazepam 0.5 mg Q6HP PRN PO 10/06/24 01:30 10/06/24 21:54 0.5 MG Al Hydrox/Mg Hydrox/Simethicone 30 ml Q6HP PRN PO 10/06/24 01:30 Docusate Sodium 100 mg BIDPRN PRN PO 10/06/24 01:30 10/09/24 09:25 100 MG Acetaminophen 650 mg Q6HP PRN PO 10/06/24 01:30 10/10/24 00:50 650 MG Temazepam 15 mg QHSP PRN PO 10/06/24 01:30 10/10/24 00:50 15 MG Ondansetron HCl 4 mg Q4HP PRN IV 10/06/24 01:30 Piperacillin Sod/ Tazobactam Sod 100 ml @ 100 mls/hr Q8HR IV 10/06/24 14:00 10/10/24 21:22 100 MLS/HR Levetiracetam 1,000 mg BID PO 10/06/24 22:00 10/12/24 09:14 1,000 MG Gabapentin 600 mg TID PO 10/07/24 14:00 10/12/24 05:30 600 MG Morphine Sulfate 4 mg Q4HPRN PRN IV 10/07/24 12:00 10/07/24 16:07 4 MG Morphine Sulfate 2 mg Q4HPRN PRN IV 10/07/24 10:30 10/11/24 01:48 2 MG Sodium Chloride 1,000 ml @ 60 mls/hr [id number] IV 10/07/24 10:30 10/11/24 14:30 60 MLS/HR Vancomycin HCl 250 ml @ 250 mls/hr Q16H IV 10/11/24 17:00 10/12/24 10:01 250 MLS/HR Clopidogrel Bisulfate 75 mg DAILY PO 10/12/24 10:00 10/12/24 09:14 75 MG Atorvastatin Calcium 40 mg HS PO 10/11/24 22:00 10/11/24 21:00 40 MG Prednisone 20 mg DAILY PO 10/12/24 10:00 10/16/24 10:01 Aspirin 81 mg DAILY PO 10/12/24 10:00 objective LEFT FOOT: -Minimal cellulitis is noted to the left foot. -Scab formation is noted to the 2nd left toe PIPJ. -No discharge is noted. -No ascending cellulitis is noted. -DP/PT +1/4 bilaterally, CFT 3 seconds bilaterally, No focal deficit is noted. -Stump of left great toe ulceration is with no measurable depth. -No foul odor noted. -No slough is noted. laboratory and microbiology Laboratory Tests 10/11/24 06:53 10/10/24 05:33 Test 10/11/24 06:53 Range/Units Serum Glucose 95 74-106 mg/dL Assessment/Plan Painful Chronic ulcerations at stump of the left great toe and 2nd left toe at PIPJ.-Improving slowly and uneventfully. Painful Cellulitis left foot.- Significantly improved. PVD BLE. S/P Angiogram/Plasty LLE. The patient may be discharged from Podiatric Surgical viewpoint and to follow up at my office on Wednesday10/17/2024. All questions and concerns were answered to the patient's satisfaction. Dietary Evaluation Review Comments: 1) Consider Cardiac diet 2) Consider MINDY 1 pkt BID 3) Continue curent plan of care Expected Outcomes/Goals: F/U in 3-5 days Plan discussed with: Patient COLLIN CORTEZ DPM Oct 12, 2024 10:11
[2024-10-12] MEDS ORDERED: CLOP75TA70 PO (14:06)
[2024-10-12] MEDS ORDERED: ASPI-325 PO (14:06)
[2024-10-12] MEDS ORDERED: DOXY1CAP57 PO (14:07)
--- NOTE | 2024-10-12 14:14 | DVHDS2 ---
Discharge Summary Date of Admission Oct 06, 2024 at 01:21 Date of Discharge: Oct 12, 2024 Labs/Diagnostic Data: Laboratory Results Test 10/11/24 06:53 10/10/24 05:33 10/09/24 15:33 10/05/24 22:48 Sodium Level 141 mmol/L (136-145) Potassium Level 4.1 mmol/L (3.5-5.1) Chloride Level 108 mmol/L (98-107) Carbon Dioxide Level 29 mmol/L (20-31) Anion Gap 4 (5-15) Blood Urea Nitrogen 15 mg/dL (9-23) Creatinine 1.17 mg/dL (0.700-1.30) Glomerular Filtration Rate Calc 69 mL/min (>90) BUN/Creatinine Ratio 12.8 (10.0-20.0) Serum Glucose 95 mg/dL (74-106) Calcium Level 10.4 mg/dL (8.7-10.4) Total Bilirubin 0.4 mg/dL (0.2-1.0) Aspartate Amino Transferase (AST) 17 U/L (13-40) Alanine Aminotransferase (ALT) 14 U/L (7-40) Alkaline Phosphatase 81 U/L (46-116) Total Protein 7.0 g/dL (5.7-8.2) Albumin 4.4 g/dL (3.2-4.8) Random Vancomycin Level 16.6 ug/mL (5-10) White Blood Count 3.3 10^3/uL (4.4-10.8) Red Blood Count 3.53 10^6/uL (4.5-5.90) Hemoglobin 11.6 g/dL (13.5-17.5) Hematocrit 34.4 % (41.0-53.0) Mean Corpuscular Volume 97.4 fL (80.0-100.0) Mean Corpuscular Hemoglobin 32.9 pg (28.0-32.0) Mean Corpuscular Hemoglobin Concent 33.8 g/dL (32.0-36.0) Red Cell Distribution Width 13.3 % (11.8-14.3) Platelet Count 207 10^3/uL (140-450) Mean Platelet Volume 8.3 fL (6.9-10.8) Neutrophils (%) (Auto) 54.5 % (37.0-80.0) Lymphocytes (%) (Auto) 29.8 % (10.0-50.0) Monocytes (%) (Auto) 11.4 % (0.0-12.0) Eosinophils (%) (Auto) 3.3 % (0.0-7.0) Basophils (%) (Auto) 1.0 % (0.0-2.0) Neutrophils # (Auto) 1.8 10 ^3/uL (1.6-8.6) Lymphocytes # (Auto) 1.0 10 ^3/uL (0.4-5.4) Monocytes # (Auto) 0.4 10 ^3/uL (0-1.3) Eosinophils # (Auto) 0.1 10 ^3/uL (0-0.8) Basophils # (Auto) 0 10 ^3/uL (0-0.2) Nucleated Red Blood Cells 0.1 % Vancomycin Level Trough 23.3 ug/mL (5-10) Urine Color Yellow (Yellow) Urine Clarity Clear (Clear) Urine pH 6.0 (5.0-9.0) Urine Specific [place] 1.020 (1.001-1.035) Urine Protein Negative (Negative) Urine Ketones Negative (Negative) Urine Blood Negative /uL (Negative) Urine Nitrite Negative (Negative) Urine Bilirubin Negative (Negative) Urine Urobilinogen 2 mg/dL (Negative) Urine Leukocyte Esterase Negative /uL (Negative) Urine RBC 3 /hpf (0 - 3) Urine WBC None seen /hpf (0 - 3) Urine Squamous Epithelial Cells None seen /hpf (<5) Urine Bacteria None seen /hpf (None Seen) Urine Glucose Normal mg/dL (Normal) Test 10/05/24 21:20 10/05/24 20:08 Lactic Acid Level 1.7 mmol/L (0.4-2.0) Troponin I High Sensitivity < 3 ng/L (</=54) B-Type Natriuretic Peptide 56.28 pg/mL (0-100) Lipase 58 U/L (12-53) Other Laboratory Tests 10/11/24 06:53 10/10/24 05:33 Brief Hx & Hospital Course: Final diagnoses: Acute cellulitis of the left foot Nonhealing wound of the left foot 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 He was seen by Podiatry here and was recommended to have a vascular consultation, Dr. Lam recommended an angiogram and he required revascularization of the left lower extremity circulation. Podiatry recommended conservative treatment so he was given IV antibiotics. CT scan of the foot showed no osteomyelitis. He was continued on IV antibiotics He also had a skin lesion on the base of the penis, it was scabbed, he removed the scab and it was dry and underneath he has in erythema 2 x 2 cm skin lesion. He was started on aspirin and Plavix per the recommendation of vascular Medicine He can be discharged home today on aspirin and Plavix and Lipitor and the rest of his home medications Follow up with his molder closed molds and vascular surgeon as soon as possible Follow up with Dermatology as soon as possible Also follow up with Dr. 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 Nhung Reid next week Dr. Vandnaa Michele MARIAMA: [phone] or [phone] Medications: ASA 81 mg qd Plavix 75 mg qd Doxycycline 100 mg bid x 7 days Resume home meds Discharge Statement: "Patient was advised to return to the ER or call 911 if any headaches, dizziness, shortness of breath, chest pain, abdominal pain, bleeding, fevers, or worsening of medical condition. Patient was counseled about treatment plan, medications, possible side effects, patientverbalized understanding. All questions were answered to the best of my ability. 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
[2024-10-12] MEDS: ASPirin 81 mg TAB PO SCH (19:48)
== END 2024-10-12 23:03 | disposition home or self-care (01) | DRG 271 ==
LOC: ER 18:52 → OVERFLOW 10-06 01:21 → WEST WING 10-06 06:39
PROVIDERS: ADMIT Hospitalist; ATTEND Internal Medicine Geriatric Medicine
PROC: 04CL3ZZ Extirpation of Matter from Left Femoral Artery, Percutaneous Approach (ICD-10-PCS; principal; 2024-10-11)
PROC: 047D3DZ Dilation of Left Common Iliac Artery with Intraluminal Device, Percutaneous Approach (ICD-10-PCS; 2024-10-11)
PROC: 047L3ZZ Dilation of Left Femoral Artery, Percutaneous Approach (ICD-10-PCS; 2024-10-11)
PROC: 047N3ZZ Dilation of Left Popliteal Artery, Percutaneous Approach (ICD-10-PCS; 2024-10-11)
PROC: 04CN3ZZ Extirpation of Matter from Left Popliteal Artery, Percutaneous Approach (ICD-10-PCS; 2024-10-11)
PROC: B41GYZZ Fluoroscopy of Left Lower Extremity Arteries using Other Contrast (ICD-10-PCS; 2024-10-11)
PROC: B41FYZZ Fluoroscopy of Right Lower Extremity Arteries using Other Contrast (ICD-10-PCS; 2024-10-11)
DX: E11.51 Type 2 diabetes mellitus with diabetic peripheral angiopathy without gangrene (principal); I70.92 Chronic total occlusion of artery of the extremities; L03.116 Cellulitis of left lower limb; E11.621 Type 2 diabetes mellitus with foot ulcer; T87.9 Unspecified complications of amputation stump; J44.9 Chronic obstructive pulmonary disease, unspecified; T81.89XA Other complications of procedures, not elsewhere classified, initial encounter; G40.909 Epilepsy, unspecified, not intractable, without status epilepticus; L97.529 Non-pressure chronic ulcer of other part of left foot with unspecified severity; I10 Essential (primary) hypertension; F17.210 Nicotine dependence, cigarettes, uncomplicated; I25.10 Atherosclerotic heart disease of native coronary artery without angina pectoris; Y83.8 Other surgical procedures as the cause of abnormal reaction of the patient, or of later complication, without mention of misadventure at the time of the procedure; Z91.018 Allergy to other foods; I25.2 Old myocardial infarction; Z89.412 Acquired absence of left great toe; Z98.62 Peripheral vascular angioplasty status; Z82.49 Family history of ischemic heart disease and other diseases of the circulatory system
CPT/HCPCS: 37221; 37224; 37225; 75716; 99285; C7535; C9606; 36415; 73700; 80048; 80053; 80202; 81001; 82565; 83605; 83690; 83880; 84484; 85025; 87205; 93925; 99152; C1725; C1769; G0378; J2250; J2543; J3490; Q9967